=== PATIENT | male | born 1950 | race Caucasian/White ===

== ENCOUNTER 2018-04-05 13:10 | Inpatient (IN) | payer MEDICARE, OTHER ==
[~2018-04-05] VITALS: Ht 177.8 cm; Wt 62.1 kg
[~2018-04-05 13:10] MED LIST: AMITIZA24 MCG PO; AMLODIPINE BESY10 MG PO; BYSTOLIC10 MG PO; CATAPRES-TTS 11 EACH TD; CYMBALTA60 MG PO; DURAGESIC; FLOMAX0.4 MG PO; FLUDROCORTISON0.1 MG PO; LEVAQUIN500 MG PO; LEVOTHYROXINE100 MCG PO; LISINOPRIL10 MG PO; METOPROLOL SUCC50 MG PO; MIDODRINE HCL2.5 MG PO; MORPHINE SULFAT15 M1 PO; MORPHINE SULFAT30 M1 PO; NORVASC5 MG PO; PROCARDIA XL30 MG PO; ROPINIROLE HC0.25 MG PO; Z MORPHINE SULFAT PO; Z.0.AMITRIPTYLINE H5 PO; Z.0.CLINDAMYCIN HC30; Z.0.LEVOTHYROXINE150 PO; Z.0.METOPROLOL SUCC5 PO; Z.0.NORVASC10 MG; Z.0.SERTRALINE HCL10 PO; [UNRECOGNIZED DRUG - OTHER] PO; amitriptyline PO; fludrocortisone PO; metoprolol ER PO
--- NOTE | 2018-04-05 13:20 | NUR ---
SpO2=76-77%RA, O2 via NRB@15lpm placed. Pt's respiration more at ease, tolerating well. Will continue to monitor.
[2018-04-05] MEDS ORDERED: ACETAMINOPHEN 1000 MG/100 ML IV STA (13:47)
[2018-04-05] MEDS ORDERED: SODIUM CHLORIDE 0.9% IV SCH (14:00)
[2018-04-05] MEDS ORDERED: ALBUTEROL/IPRATROPIUM 3 ML NEB NEB ONE (14:00)
[2018-04-05] MEDS ORDERED: CEFTAROLINE FOSAMIL ACETATE 400 MG in SODIUM CHLORIDE 0.9% 250ML 250 ML IV SCH (14:00)
[2018-04-05 14:03] LABS: BASOPHILS % 0.3 % (0.0-1.0); EOSINOPHILS % 0.6 % (0.0-6.0); HEMATOCRIT 32.4 % (38.2-49.6); HEMOGLOBIN 10.4 g/dL (14.0-18.0); LYMPHOCYTES # (AUTO) 0.5 (1.0-3.2); LYMPHOCYTES % 6.8 % (18.0-39.1); MEAN CORPUSCULAR HEMOGLOBIN 26.7 pg (28-32); MEAN CORPUSCULAR HGB CONC 32.1 g/dL (31-35); MEAN CORPUSCULAR VOLUME 83.1 fL (81-99); MONOCYTES # (AUTO) 0.5 (0.2-0.8); MONOCYTES % 6.8 % (4.4-11.3); NEUTROPHILS # (AUTO) 6.2 (2.1-6.9); NEUTROPHILS % 85.2 % (38.7-80.0); PLATELET COUNT 244 x10e3/uL (140-360); RED CELL DISTRIBUTION WIDTH 15.9 % (11.7-14.4)
--- NOTE | 2018-04-05 14:15 | NUR ---
RT notified of need for neb treatment.
[2018-04-05] MEDS: SODIUM CHLORIDE 0.9% 1000ML 1,000 ML IV SCH ×3 (14:24→17:15)
[2018-04-05] MEDS ORDERED: CEFTAROLINE FOSAMIL ACETATE 600 MG in SODIUM CHLORIDE 0.9% 250ML 250 ML IV SCH (14:30)
[2018-04-05 14:33] LABS: ALBUMIN 3.2 g/dL (3.5-5.0); ALBUMIN/GLOBULIN RATIO 0.7 (0.8-2.0); ANION GAP 12.2 mmol/L (8-16); CALCIUM 9.7 mg/dL (8.4-10.2); CREATININE, SERUM 1.3 mg/dL (0.72-1.25); POTASSIUM 3.2 mmol/L (3.5-5.1)
[2018-04-05 14:40] LABS: ABG HCO3 33 mmol/L (23-28); ABG PCO2 45 mmHg (41-51); ABG PH 7.48 (7.31-7.41); ABG PO2 176 mmHg (80-105)
[2018-04-05] MEDS ORDERED: CLONIDINE HCL0.1 MG PO (15:03)
[2018-04-05] MEDS ORDERED: MS CONTIN15 MG PO (15:03)
[2018-04-05] MEDS ORDERED: AMITRIPTYLINE H50 MG PO (15:03)
--- NOTE | 2018-04-05 15:05 | NUR ---
Neb treatment completed, placed on NC@3lpm at this time. Tolerating well.
--- NOTE | 2018-04-05 15:07 | Diagnostic Imaging Report ---
EXAM: CHEST 2 VIEWS, PA and lateral DATE: 04/05/2018 Time stamp on exam: 1:47 PM INDICATION: Sepsis COMPARISON: None FINDINGS: LINES/TUBES: None LUNGS: There is a right lower lobe airspace opacity compatible with consolidation. PLEURA: No effusions or pneumothorax. HEART AND MEDIASTINUM: Normal size and contour. BONES AND SOFT TISSUES: No acute findings. IMPRESSION: Right lower lobe pneumonia Signed by: Dr. Luca Wynne DO on 04/05/2018 3:03 PM
[2018-04-05 15:25] LABS: BILIRUBIN,URINE NEGATIVE (NEGATIVE); CLARITY,URINE SL CLOUDY (CLEAR); COLOR,URINE STRAW (YELLOW); KETONES,URINE NEGATIVE (NEGATIVE); LEUKOCYTE ESTERASE ,URINE NEGATIVE (NEGATIVE); NITRITE,URINE NEGATIVE (NEGATIVE); PROTEIN,URINE DIPSTICK 1+ (NEGATIVE); URINE UROBILINOGEN 0.2 mg/dL (0.2 - 1)
[2018-04-05 15:39] LABS: AMORPHOUS SEDIMENT,URINE MODERATE (FEW); BACTERIA,URINE MODERATE /HPF; EPITHELIAL CELLS,URINE FEW /LPF
--- NOTE | 2018-04-05 15:47 | NUR ---
Contact information for Soha: Home# , .
[2018-04-05] MEDS ORDERED: SODIUM CHLORIDE FLUSH 10 ML SYR INJ PRN (16:15)
[2018-04-05] MEDS ORDERED: ASPIRIN 81 MG CHEW TAB PO ONE (16:15)
--- OUTSIDE RECORDS SUMMARY | 2018-04-05 16:37 | XMS REPORT ---
Author Author [facility] Address Unknown Phone Unavailable Care Team Providers Care Postpartum Rn Name Role Phone Lanette TORRES Unavailable Unavailable Problems This patient has no known problems. Allergies, Adverse Reactions, Alerts This patient has no known allergies or adverse reactions. Medications This patient has no known medications. Results Test Description Test Time Test Comments Text Results Atomic Results Result Comments CHEST 2 VIEWS 2018-04-05 14:53:00 [place] [address] Patient Name: ANNEL PLAZA MR #: [id number] : 1950 Age/Sex: 68/M Req #: [id number] Adm Physician: Ordered by: ELIZABET TORRES MD Report #: [id number] Location: ER Room/Bed: Procedure: [id number] DX/CHEST 2 VIEWS Exam Date: 04/05/18 Exam Time: 1350 REPORT STATUS: Signed EXAM: CHEST 2 VIEWS, PA and lateral DATE: 04/05/2018 Time stamp on exam: 1:47 PM INDICATION: Sepsis COMPARISON: None FINDINGS: LINES/TUBES: None LUNGS: There is a right lower lobe airspace opacity compatible with consolidation. PLEURA: No effusions or pneumothorax. HEART AND MEDIASTINUM: Normal size and contour. BONES AND SOFT TISSUES: No acute findings. IMPRESSION: Right lower lobe pneumonia Signed by: Dr. Renee Evans DO on 04/05/2018 3:03 PM Dictated By: RENEE EVANS DO 1503 Transcribed By: CRYSTAL on 04/05/18 1509 COPY TO: ELIZABET TORRES MD
[2018-04-05] MEDS: ENOXAPARIN SOD INJ 40 MG/0.4 ML SYR SC SCH (17:12)
[2018-04-05] MEDS: FAMOTIDINE 20 MG/2 ML VIAL IV SCH (17:16)
--- NOTE | 2018-04-05 18:05 | NUR ---
RECD PT FROM ER VIA STRETCHER AAOX3,O2 2L NC IN PLACE,DENIES PAIN ,IV TO RT AC 18 G,LT AC 20 G,PATENT WITHOUT REDNESS OR SWELLING,PT TRANSFERRED TO BED TOLERATED WELL,TELE IN PLACE SR 83,SATS 98 %.
[2018-04-05 18:27] VITALS: BP 167/79
[2018-04-05] MEDS: IPRATROPIUM BROMIDE 0.02% 2.5 ML NEB NEB SCH (19:12)
[2018-04-05] MEDS: ALBUTEROL SULF 0.083% NEB SOLN 3 ML NEB NEB SCH (19:12)
--- NOTE | 2018-04-05 19:20 | NUR ---
Bedside rounds completed. Pt alert and orient to name. Lying in bed HOB 45 degrees. Denies pain at this time. Call price within reach. Will continue to monitor.
[2018-04-05] MEDS ORDERED: OSMOLITE237 ML PEG (19:39)
--- NOTE | 2018-04-05 19:41 | NUR ---
Initial nursing assessment completed. Pt alert to person, place, time, situation "I have Pneumonia". PERRLA. Skin warm, dry, and intact. Bilateral feet dry and scaly. Speech impairment due to post radiation treatment, scarred tissue in neck. Upper and lower dentures at bedside. glasses fixed to face. tele#7, leads intact. 18g IV right AC and 20g IV left AC, flushed with 10ml NS. O2 @2L via NC, denies SOB, O2 sat 96%. VS stable. Fentanyl patch to right upper arm. Abdomen soft and nontender, last BM 04/05/18. PEG tube, patent. Ambulatory with steady gait. Oriented to room. Call light within reach. Bed low and locked. Will continue to monitor.
[2018-04-05 19:51] VITALS: BP_SYST 146; BP_SYST 167; BP_DIAS 64; BP_DIAS 79
--- NOTE | 2018-04-05 20:41 | NUR ---
Spoke with with Dr. Hoskins regarding home meds. Home meds continued, changed Fentanyl patch to q72 hours. Ordered consult with Dr. Nati Chambers for pain management.
[2018-04-05] MEDS ORDERED: MORPHINE SULFATE 15MG TAB CR PO PRN (20:45)
[2018-04-05 20:47] VITALS: BP 146/64
[2018-04-05] MEDS ORDERED: NON-FORMULARY MEDICATION (Amitriptyline Hcl 50 MG) PO SCH (21:00)
--- NOTE | 2018-04-05 21:01 | NUR ---
Spoke with Dr. Chambers regarding consultation. Ordered Dilaudid 1mg IV every 4 hours prn pain. D/C morphine.
[2018-04-05] MEDS ORDERED: HYDROMORPHONE 1MG/1ML INJ IV PRN (21:15)
[2018-04-05] MEDS: AMITRIPTYLINE HCL 25 MG TAB PO SCH (22:00)
--- NOTE | 2018-04-05 22:00 | NUR ---
HOB high Fowlers. PEG placement checked via aspiration. Admin bolus Osmolite 1.2, 237ml and flush, pt tolerated well.
[2018-04-06] VITALS (7 sets, daily range): BP systolic 105–153; BP diastolic 55–75
[2018-04-06] MEDS: ALBUTEROL SULF 0.083% NEB SOLN 3 ML NEB NEB SCH ×4 (00:55→19:45)
[2018-04-06] MEDS: IPRATROPIUM BROMIDE 0.02% 2.5 ML NEB NEB SCH ×4 (00:55→19:45)
[2018-04-06 01:49] LABS: CREATINE KINASE 14 IU/L (30-200)
--- NOTE | 2018-04-06 02:00 | NUR ---
HOB high Fowlers. PEG placement checked via aspiration. Admin bolus Osmolite 1.2, 237ml and flush, pt tolerated well.
[2018-04-06] MEDS: CEFTAROLINE FOSAMIL ACETATE 600 MG in SODIUM CHLORIDE 0.9% 250ML 250 ML IV SCH ×2 (02:30→14:30)
[2018-04-06] MEDS: SODIUM CHLORIDE 0.9% 1000ML 1,000 ML IV SCH (02:30)
--- NOTE | 2018-04-06 05:53 | Diagnostic Imaging Report ---
EXAMINATION: CHEST SINGLE (PORTABLE) COMPARISON: Chest x-ray 04/05/2018 INDICATION: ^PNEUMONIA ^[id number] ^0536 ^Y DISCUSSION: Frontal view of the chest obtained at 0529 hours. HEART AND MEDIASTINUM: The cardiomediastinal silhouette is unremarkable. LINES: None. LUNGS: Right basilar airspace opacity is similar. Left basilar airspace opacities are increasing. No interstitial edema PLEURA: No pleural effusion or pneumothorax. BONES AND SOFT TISSUES: No focal osseous lesion. The soft tissues are normal. IMPRESSION: Stable right basilar infiltrate. Increasing left basilar airspace opacities suggestive of infiltrate. Signed by: Dr. Jose Ca MD on 04/06/2018 5:50 AM
[2018-04-06] MEDS: LEVOTHYROXINE SODIUM 100 MCG TAB PO SCH (06:31)
[2018-04-06 06:45] LABS: ANION GAP 13.1 mmol/L (8-16); BLOOD UREA NITROGEN 21 mg/dL (7-26); BUN/CREATININE RATIO 23 (6-25); CALCIUM 8.8 mg/dL (8.4-10.2); CARBON DIOXIDE 27 mmol/L (22-29); CHLORIDE 103 mmol/L (98-107); CREATININE, SERUM 0.92 mg/dL (0.72-1.25); EST GLOMERULAR FILTRATION RATE > 60 ML/MIN (60-); GLUCOSE 80 mg/dL (74-118); POTASSIUM 3.1 mmol/L (3.5-5.1); SODIUM 140 mmol/L (136-145)
--- NOTE | 2018-04-06 07:30 | NUR ---
PT UP IN BED NO DISTRESS NTOED DENIES PAIN
[2018-04-06 07:56] LABS: BASOPHILS % 0.3 % (0.0-1.0); EOSINOPHILS # (AUTO) 0.1 (0.0-0.4); EOSINOPHILS % 1.4 % (0.0-6.0); HEMATOCRIT 27.8 % (38.2-49.6); HEMOGLOBIN 8.9 g/dL (14.0-18.0); LYMPHOCYTES # (AUTO) 1.1 (1.0-3.2); LYMPHOCYTES % 17.9 % (18.0-39.1); MEAN CORPUSCULAR HEMOGLOBIN 26.8 pg (28-32); MEAN CORPUSCULAR VOLUME 83.7 fL (81-99); MONOCYTES # (AUTO) 0.3 (0.2-0.8); MONOCYTES % 5.3 % (4.4-11.3); NEUTROPHILS # (AUTO) 4.7 (2.1-6.9); NEUTROPHILS % 74.8 % (38.7-80.0); PLATELET COUNT 191 x10e3/uL (140-360); RED BLOOD COUNT 3.32 x10e6/uL (4.3-5.7); RED CELL DISTRIBUTION WIDTH 15.6 % (11.7-14.4)
[2018-04-06 08:18] LABS: CREATINE KINASE 17 IU/L (30-200)
[2018-04-06] MEDS: FLUDROCORTISONE ACETATE 0.1 MG TAB PO SCH ×3 (08:30→17:00)
[2018-04-06] MEDS: TAMSULOSIN HCL 0.4 MG CAP PO SCH (09:00)
[2018-04-06] MEDS ORDERED: SERTRALINE HCL 100 MG PO SCH (09:00)
--- NOTE | 2018-04-06 09:00 | NUR ---
DR KERRED HERE NO NEW ORDERS
[2018-04-06] MEDS: SERTRALINE HCL 100 MG TAB PO SCH (09:05)
[2018-04-06] MEDS: AMLODIPINE BESYLATE 10 MG TAB PO SCH (09:05)
[2018-04-06] MEDS: ROPINIROLE HCL 0.25 MG TAB PO SCH (09:07)
[2018-04-06] MEDS: METOPROLOL SUCCINATE 50 MG TAB XL PO SCH (09:08)
[2018-04-06] MEDS: FENTANYL 50 MCG/HR PATCH TD SCH (09:22)
[2018-04-06] MEDS: FAMOTIDINE 20 MG/2 ML VIAL IV SCH (09:22)
[2018-04-06] MEDS: CLONIDINE HCL 0.1 MG TAB PO SCH ×2 (09:22→17:00)
--- NOTE | 2018-04-06 12:30 | NUR ---
FEEDING GIVEN ORDERED,TOLERATED WELL
--- NOTE | 2018-04-06 13:23 | Consultation ---
DATE OF CONSULTATION: Pulmonary Consultation HISTORY OF PRESENT ILLNESS: The patient is not seen for many years, history of carcinoma of the tongue, treated with radiation at [facility] with apparent esophageal stricture and hypothyroidism after radiation. He is admitted with choking on spittle. It is difficult to understand, but eventually would swallow able to speak. He has been housebound this winter, had a chill on the first and cough productive of green-yellow sputum for the last 3 weeks. He had been on oral antibiotics for a month. 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 Denies smoking or alcohol. Born in [place]. FAMILY HISTORY: Noncontributory. MEDICATIONS: At home had included Levoxyl, Elavil, amitriptyline, clonidine, metoprolol, fentanyl patch, ropinirole, sertraline, Flomax, fludrocortisone, morphine , Osmolite. He has a feeding tube. PHYSICAL EXAMINATION: GENERAL: Well-developed white male. Had neck radiation changes. VITAL SIGNS: Temperature on admission 101.6, pulse 78, respirations 18, and blood pressure 152/70. HEENT: Head, normocephalic and atraumatic. NECK: Radiation changes. LUNGS: Rales in the right base. HEART: Regular rhythm. ABDOMEN: PEG is in place. EXTREMITIES: Nontender. IMPRESSION: 1. Right lower lobe pneumonia, presumably pneumonia. The patient has a history of recurrent pneumonia, particularly before percutaneous endoscopic gastrostomy was placed. 2. History of esophageal stricture. PLAN: Empiric antibiotic therapy to cover anaerobic organisms. Thank you for this kind referral. MD KIMBERLY Lechuga/MODL /[id number]
[2018-04-06] MEDS ORDERED: POTASSIUM CHLORIDE 20 MEQ TAB CR PO STA (15:16)
[2018-04-06] MEDS ORDERED: POTASSIUM CHLORIDE 20MEQ/15ML UDC NG ONE (16:30)
[2018-04-06 16:40] LABS: CREATINE KINASE MB 0.3 ng/mL (0-5.0)
[2018-04-06] MEDS: DOXYCYCLINE HYCLATE TABLET 100 MG TAB GT SCH (17:00)
[2018-04-06] MEDS: ENOXAPARIN SOD INJ 40 MG/0.4 ML SYR SC SCH (17:00)
--- NOTE | 2018-04-06 18:33 | NUR ---
PT UP IN BED NO DISTRESS NTOED,DENIES PAIN ,O2 2L NC IN PLACE.
[2018-04-06] MEDS: AMITRIPTYLINE HCL 25 MG TAB PO SCH (23:30)
--- NOTE | 2018-04-06 23:35 | History and Physical ---
HISTORY OF PRESENT ILLNESS: This is a 68-year-old male, who has a past medical history positive for tongue cancer, being treated by as an outpatient for radiation therapy. History of dysphagia, got a PEG tube in place. Came here with cough, phlegm, fever, and shortness of breath. He was found to have pneumonia and hypoxemia. He was admitted to the hospital. REVIEW OF SYSTEMS: CARDIOVASCULAR: No chest pain or palpitation. RESPIRATORY: He has cough and phlegm. He was short of breath, not as much short of breath right now. GASTROINTESTINAL: No nausea, vomiting, or diarrhea. GENITOURINARY: No urinary frequency. No dysuria. ALLERGIES: HE IS NOT ALLERGIC TO ANY MEDICATION. SOCIAL HISTORY: He used to smoke, he does not smoke anymore. He does not drink alcohol. PAST MEDICAL HISTORY: Positive for tongue cancer, status post radiation therapy. Dysphagia, on PEG tube feedings. PHYSICAL EXAMINATION: VITAL SIGNS: Blood pressure is , heart rate 68 per minute, respiratory rate is 17 per minute, and oxygen saturation 94%. HEART: Showed regular rhythm. No murmur or added sound. LUNGS: Clear bilaterally. ABDOMEN: Soft. Got PEG tube in place. EXTREMITIES: Show atrophy in upper and lower extremities. LABORATORY DATA: On the BMP, sodium 140, potassium 3.1, chloride 103, CO2 of 27, BUN 21, creatinine 0.92, and glucose 81. CBC, white blood count 6.27, hemoglobin 8.9, hematocrit 27.8, and platelet count count of 191,000. AST 7, ALT 7, total bilirubin 0.4, and alkaline phosphatase 66. FINAL IMPRESSION: 1. pneumonia. 2. Anemia of chronic disease. 3. Tongue cancer, status post radiation therapy. 4. .. 5. Dysphagia. 6. Hypoxemia. 7. Severe protein-calorie malnutrition. We are going to continue with current IV antibiotic therapy. He is IV twice a day, amlodipine 10 mg daily, levothyroxine 100 mcg daily, , Lovenox 40 mg at bedtime daily for DVT prophylaxis, clonidine 0.1 mg twice daily, Requip 0.5 mg daily, Zoloft 100 mg daily, Pepcid 20 mg twice daily, fentanyl citrate 1 patch q.72 hours, Flomax 0.4 mg daily, doxycycline 100 mg twice a day, fludrocortisone acetate 0.1 mg twice a day, metoprolol 50 mg twice a day, has been consulted from the pulmonary point of view. Dr. Chambers has been consulted from the pain management point of view also. Continue the PEG tube feeding. We are going to discontinue the IV fluids. MD STEPHANIE Barrientos/ELIAN /[id number]
[2018-04-07] VITALS (8 sets, daily range): BP systolic 111–151; BP diastolic 59–82
[2018-04-07] MEDS: ALBUTEROL SULF 0.083% NEB SOLN 3 ML NEB NEB SCH ×4 (00:37→19:28)
[2018-04-07] MEDS: IPRATROPIUM BROMIDE 0.02% 2.5 ML NEB NEB SCH ×4 (00:37→19:28)
[2018-04-07] MEDS: CEFTAROLINE FOSAMIL ACETATE 600 MG in SODIUM CHLORIDE 0.9% 250ML 250 ML IV SCH ×2 (03:04→15:30)
[2018-04-07] MEDS: LEVOTHYROXINE SODIUM 100 MCG TAB PO SCH (06:00)
[2018-04-07 06:53] LABS: ANION GAP 10.3 mmol/L (8-16); BLOOD UREA NITROGEN 18 mg/dL (7-26); BUN/CREATININE RATIO 21 (6-25); CARBON DIOXIDE 27 mmol/L (22-29); CHLORIDE 101 mmol/L (98-107); CREATININE, SERUM 0.87 mg/dL (0.72-1.25); EST GLOMERULAR FILTRATION RATE > 60 ML/MIN (60-); GLUCOSE 88 mg/dL (74-118); POTASSIUM 3.3 mmol/L (3.5-5.1); SODIUM 135 mmol/L (136-145)
--- NOTE | 2018-04-07 07:35 | NUR ---
PT UP IN BED NO DISTRESS NOTED,O2 2L NC IN PLACE.
--- NOTE | 2018-04-07 07:53 | Diagnostic Imaging Report ---
EXAMINATION: PA and lateral views of the chest. COMPARISON: 04/06/2018 CLINICAL HISTORY: Pneumonia DISCUSSION: Lines/tubes: None. Lungs: Stable scattered interstitial opacities and improved right lower lung opacity. Pleura: No pleural effusion or pneumothorax. Heart and mediastinum: The cardiomediastinal silhouette is normal. Bones and soft tissues: No acute bony abnormalities. IMPRESSION: Improved right lower lung airspace opacity. Signed by: Dr. Michael Eckert M.D. on 04/07/2018 7:50 AM
[2018-04-07] MEDS: TAMSULOSIN HCL 0.4 MG CAP PO SCH (08:54)
[2018-04-07] MEDS: CLONIDINE HCL 0.1 MG TAB PO SCH ×2 (08:54→17:00)
[2018-04-07] MEDS: DOXYCYCLINE HYCLATE TABLET 100 MG TAB GT SCH ×2 (08:54→17:00)
[2018-04-07] MEDS: SERTRALINE HCL 100 MG TAB PO SCH (08:55)
[2018-04-07] MEDS: METOPROLOL SUCCINATE 50 MG TAB XL PO SCH (08:55)
[2018-04-07] MEDS: ROPINIROLE HCL 0.25 MG TAB PO SCH (08:55)
[2018-04-07] MEDS: AMLODIPINE BESYLATE 10 MG TAB PO SCH (08:55)
[2018-04-07] MEDS: FLUDROCORTISONE ACETATE 0.1 MG TAB PO SCH ×2 (09:00→17:00)
--- NOTE | 2018-04-07 12:00 | NUR ---
PT UP IN BED DENIES PAIN
[2018-04-07] MEDS ORDERED: POTASSIUM CHLORIDE 20 MEQ TAB CR PO ONE (13:00)
[2018-04-07] MEDS ORDERED: POTASSIUM CHLORIDE 20MEQ/15ML UDC NG ONE (13:15)
--- NOTE | 2018-04-07 13:35 | NUR ---
Patient lives: Lives with and one of his kids Admit/Transfer: Admit POA/Emergency contact: Gilda Carroll [phone] Current/Previous Home Health: Home care in the past but cannot recall the agencys name. PCP/Follow-up Care: Eduard Hoskins MD Current/Previous DME: He has a cane but does not use it Other Services: None Employment Status: Patient is retired Areas of Concerns: Unknown Referral Needs: Unk Education Needs: unk IMM/HALL given and signed (if applicable): n/A Goal for discharge: Addendum: 04/07/18 at 1412 by BRITTNEY TRACY CM IMM signed and placed in chart
--- NOTE | 2018-04-07 13:36 | NUR ---
Nutrition Intervention Note RD Recommendation(s) for Physician: Change to continuous feeds of Osmolite 1.2 at 60ml/hr via PEG Plan of Care: RD following, monitoring for tolerance and adequacy Nutrition reason for involvement: Nutrition Risk Trigger - [facility] RD Assessment Initial encounter with patient. Pt was on gravity feeds of Osmolite 1.2 240ml six times a day which would provide 1728 kcals, 80g of protein and 1180ml of free H2O. Pt states that he could not tolerate 6 cans a day and would only do three which resulted in a 40 pound wt loss over the last 2 months. protruding clavicle, ribs, acromion process, scapula, loss of lean body mass and subcutaneous fat noted in bilateral upper and lower extremities. Dysphagia, esophageal stricture, hx. of aspiration pneumonia, S/P chemo for tongue cancer, + Nausea Principal Problems/Diagnoses:Pneumonia PMH: tongue cancer IVF: None GI: Soft/PEG Skin: intact Labs: (04/07/2018) lab results reviewed Meds: (04/07/2018) MAR reviewed Malnutrition Evaluation (04/07/2018) The patient meets criteria for unspecified SEVERE protein-calorie malnutrition. Energy intake: <50% of estimated energy requirements for >1 month Weight loss: >20% in 1 year (Chronic) Fat loss: Severe, Muscle loss:Mild, Moderate, Severe, unable to evaluate Supporting Evidence: Fluid accumulation: none Functional Status: No changes Diet Education Needs Assessment: Diet education indicated, but patient not appropriate for education at this time. Ht:70 Wt:138.05lbs BMI:19.8kg/m2 IBW:166lbs Estimated Nutritional Needs: 1568 - 1881 kcals at 25-30 kcals/kg/bw 63-94g of protein at 1-1.5g/kg/bw Nutrition Prescription (Diet Order): NPO except for EN Food Allergies: No known food allergies Diet Adequacy: Not meeting calorie needs, Not meeting protein needs HUMAN RESOURCES OPERATIONS MANAGER Tolerance: Not Tolerating TF HUMAN RESOURCES OPERATIONS MANAGER Nutrition Care Level: Moderate Nutrition Diagnosis:Malnutrition related to chronic illness as evidenced by involuntary wt loss and loss of lean body mass Goal:Patient will meet 75-100% of estimated needs by follow up Progress: Not Progressing Interventions: EN via PEG Monitoring/Evaluation: -Wt, I/Os, Lab results Mando Hollis RD, LD, CNSC
--- NOTE | 2018-04-07 14:43 | Progress Note ---
DATE: Internal Medicine Progress Note SUBJECTIVE: The patient is doing well. OBJECTIVE: VITAL SIGNS: Blood pressure 137/77, temperature 97.8, heart rate 72 per minute, respiratory rate 16 per minute, oxygen saturation 93%. HEART: Showed regular rhythm. No murmur or added sound. LUNGS: Clear bilaterally. ABDOMEN: Soft. He does have PEG tube. EXTREMITIES: Show no evidence of cyanosis, edema, or trauma. LABORATORY DATA: BMP; sodium 135, potassium 3.3, chloride 101, CO2 of 27, BUN 18, creatinine 0.87, glucose 88. CBC; white blood count is 6.27, hemoglobin 8.9, hematocrit 27.8, platelet count 181,000. AST 7, ALT 7, total bilirubin 0.4, and alkaline phosphatase 66. FINAL IMPRESSION: 1. Aspiration pneumonia. 2. Anemia of chronic disease. 3. Hypokalemia. 4. Dysphagia. 5. Tongue cancer. 6. Hypoxemia. 7. Severe protein calorie malnutrition. PLAN OF TREATMENT: Continue albuterol and Atrovent q.6 hours. Continue ceftaroline acetate 250 mL/h q.12 hours, Lovenox 40 mg subcutaneously daily for DVT prophylaxis, fentanyl patch q.72 hours, Flomax 0.4 mg daily, doxycycline 100 mg twice a day, fludrocortisone 0.1 mg twice a day, metoprolol 50 mg daily, Dilaudid 1 mg IV q.4 hours as needed. Continue amlodipine 10 mg daily, levothyroxine 150 mcg daily, amitriptyline 50 mg daily, clonidine 0.1 mg twice a day, Requip 0.5 mg daily mg daily. MD STEPHANIE Barrientos/ELIAN /[id number]
[2018-04-07] MEDS: HYDROMORPHONE 2MG/ML 2 MG/ML ML IV PRN (17:20)
[2018-04-07] MEDS: ENOXAPARIN SOD INJ 40 MG/0.4 ML SYR SC SCH (18:15)
--- NOTE | 2018-04-07 18:16 | NUR ---
FEEDING STARTTED REQUESTD,PAIN LEVEL 4
--- NOTE | 2018-04-07 19:30 | NUR ---
Completed report with morning nurse. Pt alert and orient to name. Pt standing in bathroom. c/o x1 vomiting. Clear, davis vomit noted. Pt states, "I am ok now." Denies pain at this time. PEG tube patent, pump with Osmolite @50mL. No acute distress noted. Call price within reach. Will continue to monitor.
--- NOTE | 2018-04-07 21:19 | NUR ---
Received order from Dr. Hoskins for Zofran 4mg IV every 4 hours prn nausea.
[2018-04-07] MEDS ORDERED: ONDANSETRON HCL INJ 2MG/ML 2ML 2 MG/ML VIAL IV PRN (21:30)
[2018-04-07] MEDS: AMITRIPTYLINE HCL 25 MG TAB PO SCH (21:39)
[2018-04-08] VITALS (7 sets, daily range): BP systolic 111–165; BP diastolic 55–77
[2018-04-08] MEDS: IPRATROPIUM BROMIDE 0.02% 2.5 ML NEB NEB SCH ×4 (00:55→19:45)
[2018-04-08] MEDS: ALBUTEROL SULF 0.083% NEB SOLN 3 ML NEB NEB SCH ×4 (00:55→19:45)
[2018-04-08] MEDS: CEFTAROLINE FOSAMIL ACETATE 600 MG in SODIUM CHLORIDE 0.9% 250ML 250 ML IV SCH ×2 (02:30→14:13)
[2018-04-08] MEDS: LEVOTHYROXINE SODIUM 100 MCG TAB PO SCH (06:13)
[2018-04-08 06:50] LABS: ANION GAP 11.5 mmol/L (8-16); BLOOD UREA NITROGEN 17 mg/dL (7-26); BUN/CREATININE RATIO 20 (6-25); CALCIUM 9.2 mg/dL (8.4-10.2); CARBON DIOXIDE 30 mmol/L (22-29); CHLORIDE 100 mmol/L (98-107); CREATININE, SERUM 0.87 mg/dL (0.72-1.25); EST GLOMERULAR FILTRATION RATE > 60 ML/MIN (60-); GLUCOSE 98 mg/dL (74-118); SODIUM 137 mmol/L (136-145)
[2018-04-08 06:58] LABS: POTASSIUM 4.5 mmol/L (3.5-5.1)
--- NOTE | 2018-04-08 07:08 | NUR ---
RECEIVED REPORT FROM NIGHT NURSE, WALKING ROUNDS COMPLETED. PATIENT IS RESTING IN BED. NO ACUTE DISTRESS NOTED. PATIENT DENIES PAIN OR DISCOMFORT. CALL LIGHT WITHIN REACH. BED IN THE LOWEST POSITION.
[2018-04-08] MEDS: SERTRALINE HCL 100 MG TAB PO SCH (10:02)
[2018-04-08] MEDS: ROPINIROLE HCL 0.25 MG TAB PO SCH (10:03)
[2018-04-08] MEDS: DOXYCYCLINE HYCLATE TABLET 100 MG TAB GT SCH ×2 (10:03→18:14)
[2018-04-08] MEDS: AMLODIPINE BESYLATE 10 MG TAB PO SCH (10:03)
[2018-04-08] MEDS: METOPROLOL SUCCINATE 50 MG TAB XL PO SCH (10:03)
[2018-04-08] MEDS: CLONIDINE HCL 0.1 MG TAB PO SCH ×2 (10:03→18:14)
[2018-04-08] MEDS: FLUDROCORTISONE ACETATE 0.1 MG TAB PO SCH ×2 (10:03→18:13)
[2018-04-08] MEDS: TAMSULOSIN HCL 0.4 MG CAP PO SCH (10:03)
--- NOTE | 2018-04-08 10:05 | NUR ---
PEG TUBE PLACEMENT ASSESSED VIA ASPIRATION. PATIENT TOLERATING FEEDING, NO RESIDUAL NOTED. HOB ELEVATED.
--- NOTE | 2018-04-08 10:48 | NUR ---
IMM LETTER EXPLAINED TO PT. VERBALIZED UNDERSTANDING. LETTER WAS SIGNED. COPY TO CHART AND COPY TO PT.
--- NOTE | 2018-04-08 11:32 | NUR ---
ST NOTE: Pt refused Speech Language Evaluation. "NO. I've been like this for 12 years." Pt wishes to d/c from hospital. Handoff to SARBJIT Sahu
--- NOTE | 2018-04-08 14:30 | NUR ---
HOB ELEVATED. PEG TUBE PLACEMENT ASSESSED VIA ASPIRATION. PATIENT TOLERATING FEEDING, NO RESIDUAL NOTED.
[2018-04-08] MEDS: ENOXAPARIN SOD INJ 40 MG/0.4 ML SYR SC SCH (18:13)
--- NOTE | 2018-04-08 18:13 | NUR ---
PEG TUBE PLACEMENT ASSESSED VIA ASPIRATION. NO RESIDUAL NOTED, PATIENT TOLERATING FEEDING. HOB ELEVATED.
--- NOTE | 2018-04-08 19:35 | NUR ---
REPORT GIVEN TO ONCOMING NURSE, WALKING ROUNDS DONE. PATIENT IS RESTING IN BED. NO ACUTE DISTRESS NOTED. CALL LIGHT WITHIN REACH. BED IN THE LOWEST POSITION.
--- NOTE | 2018-04-08 20:37 | NUR ---
RECEIVE DPT IN BED AOX3 .DENIES PAIN .OSMOLITES 1.2 IS RUNNING AT 50CC/HR ..RT AC 20 G S/L .NO ACUTE DISTRESS NOTED .CALL LIGHT WITH IN REACH.
[2018-04-08] MEDS: AMITRIPTYLINE HCL 25 MG TAB PO SCH (21:50)
--- NOTE | 2018-04-08 23:16 | Progress Note ---
DATE: Internal Medicine Progress Note SUBJECTIVE: He is doing well. No significant complaint. PHYSICAL EXAMINATION: VITAL SIGNS: Blood pressure 133/66, temperature 99.0, heart rate 70 per minute, respiratory rate 18 per minute, and oxygen saturation 90%. HEART: Showed regular rhythm. No murmur or added sound. LUNGS: Clear bilaterally. ABDOMEN: Soft. He has a PEG tube in place. LABORATORY DATA: On BMP; sodium 137, potassium 4.5, chloride 100, CO2 of 30, BUN 17, creatinine 0.87, glucose 98. On CBC, white blood count 6.27, hemoglobin 8.9, hematocrit 27.8, platelet count 181,000. AST 7, ALT 7, total bilirubin 0.4, alkaline phosphatase 66. FINAL IMPRESSION: 1. Aspiration pneumonia. 2. Dysphagia. 3. Hypertension. 4. Chronic obstructive pulmonary disease. 5. Hypothyroidism. 6. Moderate protein-calorie malnutrition. PLAN OF TREATMENT: Continue PEG tube feeding. Continue albuterol and Atrovent q.6 hours. Continue ceftaroline fosamil acetate q.12 hours. Continue Lovenox 40 mg subcutaneously daily, fentanyl patch q.72 hours, Flomax 0.4 mg daily, doxycycline 100 mg twice a day, fludrocortisone 0.1 mg twice a day, metoprolol 50 mg daily, Zofran 4 mg IV q.4 hours as needed, amlodipine 10 mg daily, levothyroxine 150 mcg daily, amitriptyline 50 mg daily, Dilaudid 1 mg IV q.4 hours as needed, clonidine 0.1 mg twice a day, Requip 0.5 mg at bedtime, sertraline 100 mg daily. We are going to consult Dr. Irving Zaragoza to check the feeding tube. He went to check for some other connection in the feeding tube. In the meantime, antibiotics will be continued. So far, he is doing well. Physical therapy consulted also. MD STEPHANIE Barrientos/ELIAN /[id number]
[2018-04-09] VITALS (9 sets, daily range): BP systolic 112–170; BP diastolic 55–77
[2018-04-09] MEDS: IPRATROPIUM BROMIDE 0.02% 2.5 ML NEB NEB SCH ×4 (01:05→19:12)
[2018-04-09] MEDS: ALBUTEROL SULF 0.083% NEB SOLN 3 ML NEB NEB SCH ×4 (01:05→19:12)
[2018-04-09] MEDS: CEFTAROLINE FOSAMIL ACETATE 600 MG in SODIUM CHLORIDE 0.9% 250ML 250 ML IV SCH ×2 (02:30→13:50)
[2018-04-09] MEDS: LEVOTHYROXINE SODIUM 100 MCG TAB PO SCH (06:32)
--- NOTE | 2018-04-09 07:13 | NUR ---
Received patient resting in bed, no acute distress noted. Denies pain or discomfort. Call light within reach, bed in the lowest position.
--- NOTE | 2018-04-09 07:43 | NUR ---
PT IS NPO PT IS GOING FOR PEGTUBE REPLACEMENT .DENIES PAIN .CALL LIGHT WITH IN REACH.REPORT GIVEN TO THE ONCOMING NURSE .
[2018-04-09] MEDS: DOXYCYCLINE HYCLATE TABLET 100 MG TAB GT SCH ×2 (09:00→16:21)
[2018-04-09] MEDS: CLONIDINE HCL 0.1 MG TAB PO SCH ×2 (09:00→16:22)
[2018-04-09] MEDS: FLUDROCORTISONE ACETATE 0.1 MG TAB PO SCH ×2 (09:00→16:22)
[2018-04-09] MEDS: FENTANYL 50 MCG/HR PATCH TD SCH (09:46)
--- NOTE | 2018-04-09 10:00 | NUR ---
PEG TUBE PLACEMENT ASSESSED VIA ASPIRATION. PATIENT TOLERATING FEEDING, NO RESIDUAL NOTED. HOB ELEVATED.
--- NOTE | 2018-04-09 12:25 | NUR ---
PATIENT OFF THE UNIT FOR PROCEDURE.
[2018-04-09] MEDS ORDERED: PANTOPRAZOLE 40 MG 10ML VIAL IV STA (13:31)
--- NOTE | 2018-04-09 13:43 | NUR ---
PATIENT BACK TO UNIT AT THIS TIME. PER NURSE STAT PROTONIX NOT GIVEN IN PACU. WILL ADMINISTER.
[2018-04-09] MEDS: PANTOPRAZOLE 40 MG 10ML VIAL IV SCH (13:45)
--- NOTE | 2018-04-09 14:30 | NUR ---
PATIENT BACK FROM PROCEDURE, PEG TUBE REPLACED. PEG TUBE ASSESSED FOR PLACEMENT. NO RESIDUAL NOTED. PER DR. Rachelle MONTENEGRO TUBE OK TO USE. CONNECTED FEEDING AT THIS TIME.
[2018-04-09] MEDS: METOPROLOL SUCCINATE 50 MG TAB XL PO SCH (14:35)
[2018-04-09] MEDS: AMLODIPINE BESYLATE 10 MG TAB PO SCH (14:35)
[2018-04-09] MEDS: ROPINIROLE HCL 0.25 MG TAB PO SCH (14:35)
[2018-04-09] MEDS: TAMSULOSIN HCL 0.4 MG CAP PO SCH (14:35)
[2018-04-09] MEDS: SERTRALINE HCL 100 MG TAB PO SCH (14:35)
[2018-04-09] MEDS: ENOXAPARIN SOD INJ 40 MG/0.4 ML SYR SC SCH (16:22)
[2018-04-09] MEDS ORDERED: LIDOCAINE HCL 2% LOCAL INJ 5 ML SDV VIAL INJ ONE (18:03)
[2018-04-09] MEDS ORDERED: PROPOFOL IV EMULSION 10 MG/ML 20 ML VIAL ONE (18:03)
[2018-04-09] MEDS ORDERED: MIDAZOLAM HCL 2 MG/2 ML VIAL ONE (18:30)
[2018-04-09] MEDS ORDERED: FENTANYL CITRATE/PF 100MCG/2 ML INJ ONE (18:30)
--- NOTE | 2018-04-09 19:41 | NUR ---
REPORT GIVEN TO ONCOMING NURSE, PATIENT IS RESTING IN BED. NO SOB OR ACUTE DISTRESS NOTED. CALL LIGHT WITHIN REACH. BED IN THE LOWEST POSITION.
--- NOTE | 2018-04-09 20:32 | Operative Report ---
DATE OF PROCEDURE: 04/09/2018 SURGEON: Irving Zaragoza MD PROCEDURES: An esophagogastroduodenoscopy with biopsies and PEG tube replacement. INDICATIONS FOR PROCEDURE: Dysfunctional G-tube. MEDICATION: The patient was done under MAC. Please see anesthesiologist's note. DESCRIPTION OF THE PROCEDURE: With the patient in the supine position, a flexible fiberoptic Olympus gastroscope was introduced into the esophagus under direct visualization without any difficulty. There was some patchy erythema noted in the distal esophagus. The scope was then advanced with ease into the stomach and mucosa overlying the antrum and the body revealed some patchy erythema and then an approximately 5 mm ulcer was noted in the antrum without active bleeding or stigmata of recent hemorrhage, now it was biopsied. The pylorus was of normal contour and shape, was intubated with ease and the scope was advanced all the way to the second portion of the duodenum. The scope was then withdrawn slowly. Mucosa overlying the proximal second portion and the duodenal bulb appeared to be within normal limits. The scope was then withdrawn back into the stomach and retroflexed. Mucosa overlying the fundus and the cardia appeared to be within normal limits. The scope was then straightened out and the bumper of the old dysfunctional G-tube was noted. The OG tube was removed per the old pull traction method and PEG tube replacement was carried out in the usual fashion through the old G-tube stoma. The scope was subsequently withdrawn after documenting a good positioning of the intragastric bumper. The patient tolerated the procedure well. IMPRESSION: 1. Distal esophagitis, mild. 2. Gastritis. 3. Gastric ulcer, antrum biopsied. 4. PEG tube replacement carried out in the usual fashion through the OG tube stoma. PLAN: Followup histology. G-tube can be used upon return to floor. Irving Zaragoza MD [facility] [place] /[id number] cc: Eduard Hoskins MD
[2018-04-09] MEDS: AMITRIPTYLINE HCL 25 MG TAB PO SCH (21:20)
[2018-04-10] VITALS (7 sets, daily range): BP systolic 100–132; BP diastolic 63–77
[2018-04-10] MEDS: IPRATROPIUM BROMIDE 0.02% 2.5 ML NEB NEB SCH ×3 (00:32→13:26)
[2018-04-10] MEDS: ALBUTEROL SULF 0.083% NEB SOLN 3 ML NEB NEB SCH ×3 (00:32→13:26)
[2018-04-10] MEDS: PANTOPRAZOLE 40 MG 10ML VIAL IV SCH ×2 (02:01→16:52)
[2018-04-10] MEDS: CEFTAROLINE FOSAMIL ACETATE 600 MG in SODIUM CHLORIDE 0.9% 250ML 250 ML IV SCH ×2 (02:01→16:52)
[2018-04-10] MEDS: LEVOTHYROXINE SODIUM 100 MCG TAB PO SCH (06:00)
[2018-04-10] MEDS: HYDROMORPHONE 2MG/ML 2 MG/ML ML IV PRN (09:50)
--- NOTE | 2018-04-10 09:50 | NUR ---
Pt received resting in bed. Alert and oriented x4 with saline lock #18 in right AC. Pt with PEG tube receiving feeding as ordered. Oriented to staff and surroundings, encouraged to press call price if help needed. Emotional support given. Fall precautions maintained. Will monitor
[2018-04-10] MEDS: DOXYCYCLINE HYCLATE TABLET 100 MG TAB GT SCH ×2 (10:04→16:52)
[2018-04-10] MEDS: ROPINIROLE HCL 0.25 MG TAB PO SCH (10:04)
[2018-04-10] MEDS: TAMSULOSIN HCL 0.4 MG CAP PO SCH (10:04)
[2018-04-10] MEDS: CLONIDINE HCL 0.1 MG TAB PO SCH ×2 (10:04→16:52)
[2018-04-10] MEDS: AMLODIPINE BESYLATE 10 MG TAB PO SCH (10:04)
[2018-04-10] MEDS: METOPROLOL SUCCINATE 50 MG TAB XL PO SCH (10:04)
[2018-04-10] MEDS: FLUDROCORTISONE ACETATE 0.1 MG TAB PO SCH ×2 (10:04→16:52)
[2018-04-10] MEDS: SERTRALINE HCL 100 MG TAB PO SCH (10:04)
--- NOTE | 2018-04-10 14:52 | NUR ---
ORDERS REC'D TODAY FOR [facility] EVAL AND TRANSFER WHEN ACCEPTED CHOICE LETTER SIGNED BY PT SHORTLY AFTER THIS I REC'D PHONE CALL FROM PT'S , ANGRY AND STATING MY IS NOT GOING TO [facility]. HE WILL STAY THERE TILL HE GETS WELL CM WENT INTO PT'S ROOM WITH ON PHONE EXPLAINED TO PT WHO IS ALERT AND [employer]X3 THAT HIS DOES NOT WANT HIM TO GO TO [facility] HE STATES, "SHE'S THE BOSS. THEN I WON'T GO" BELA NOTIFIED DR SR OF ABOVE
[2018-04-10] MEDS: ENOXAPARIN SOD INJ 40 MG/0.4 ML SYR SC SCH (16:52)
--- NOTE | 2018-04-10 18:18 | NUR ---
Pt resting in bed. Pt is for possible transfer to [facility]. All meds given as ordered. Call price within reach. Will endorse to next shift
--- NOTE | 2018-04-10 19:11 | Progress Note ---
DATE: Internal Medicine Progress Note SUBJECTIVE: The patient is on IV antibiotics for aspiration pneumonia. The patient agreed to go to [facility], but apparently the did not agree with that. I talked with the patient. I told him that [facility] would be the best alternative. Otherwise, he has to go to a long-term facility, which he refused. So, he is in agreement to go to [facility]. He will talk with the and try to convince her that he wanted to go to [facility], which is his choice. PHYSICAL EXAMINATION: VITAL SIGNS: Blood pressure 100/68, temperature 96.6, heart rate 64 per minute, respiratory rate 18 per minute, and oxygen saturation 100%. HEART: Showed regular rhythm. Nor murmur or added sound. LUNGS: Clear bilaterally. ABDOMEN: Soft. He had a PEG tube in place. LABORATORY DATA: On the BMP, sodium 137, potassium 4.5, chloride 100, CO2 of 30, BUN 17, creatinine 0.87, glucose 98. CBC, white blood count 6.27, hemoglobin 8.9, hematocrit 27.8, and platelet count of 181,000. AST 7, ALT 7. Total bilirubin 0.4, alkaline phosphatase 66. Blood culture negative so far. ASSESSMENT: 1. Aspiration pneumonia. 2. Dysphagia. 3. Cancer of the tongue, status post radiation therapy in the past. 4. Severe protein-calorie malnutrition. 5. Orthostatic hypotension. 6. Chronic obstructive pulmonary disease. PLAN OF TREATMENT: Continue ceftaroline fosamil acetate q.12 hours, albuterol and Atrovent q.6 hours. Continue Lovenox 40 mg subcutaneously daily, fentanyl patch q.72 hours, Flomax 0.4 mg daily, doxycycline 100 mg twice a day, fludrocortisone 0.1 mg twice a day, metoprolol 50 mg daily, Zofran 4 mg IV q.4 hours as needed, amlodipine 10 mg daily, levothyroxine 150 mcg daily, amitriptyline 50 mg at bedtime, Protonix 40 mg twice a day, Dilaudid 1 mg IV q.4 hours as needed, Zoloft 100 mg daily, Requip 0.5 mg daily, clonidine 0.1 mg twice a day. The patient is going to be transferred to [facility] if accepted. MD STEPHANIE Barrientos/ELIAN /[id number]
[2018-04-10] MEDS: AMITRIPTYLINE HCL 25 MG TAB PO SCH (22:07)
[2018-04-11] VITALS: BP 133/67
[2018-04-11] MEDS: IPRATROPIUM BROMIDE 0.02% 2.5 ML NEB NEB SCH ×3 (00:29→13:00)
[2018-04-11] MEDS: PANTOPRAZOLE 40 MG 10ML VIAL IV SCH ×2 (02:13→13:55)
[2018-04-11] MEDS: CEFTAROLINE FOSAMIL ACETATE 600 MG in SODIUM CHLORIDE 0.9% 250ML 250 ML IV SCH ×2 (02:13→13:55)
[2018-04-11] MEDS: ALBUTEROL SULF 0.083% NEB SOLN 3 ML NEB NEB SCH ×3 (03:33→13:00)
[2018-04-11 04:00] VITALS: BP 136/66
[2018-04-11] MEDS: LEVOTHYROXINE SODIUM 100 MCG TAB PO SCH (05:44)
[2018-04-11] MEDS: AMLODIPINE BESYLATE 10 MG TAB PO SCH (07:40)
[2018-04-11] MEDS: CLONIDINE HCL 0.1 MG TAB PO SCH ×2 (07:40→17:50)
[2018-04-11] MEDS: METOPROLOL SUCCINATE 50 MG TAB XL PO SCH (07:40)
[2018-04-11 07:55] VITALS: BP 97/60
[2018-04-11] MEDS: FLUDROCORTISONE ACETATE 0.1 MG TAB PO SCH ×2 (08:19→17:50)
[2018-04-11] MEDS: DOXYCYCLINE HYCLATE TABLET 100 MG TAB GT SCH ×2 (08:19→17:50)
[2018-04-11] MEDS: ROPINIROLE HCL 0.25 MG TAB PO SCH (08:19)
[2018-04-11] MEDS: SERTRALINE HCL 100 MG TAB PO SCH (08:19)
[2018-04-11] MEDS: TAMSULOSIN HCL 0.4 MG CAP PO SCH (08:19)
[2018-04-11 08:20] VITALS: BP 97/60
--- NOTE | 2018-04-11 08:20 | NUR ---
Pt received resting in bed with feeding ongoing. All meds given as ordered via peg. Emotional support given. Fall precautions maintained. Will monitor
[2018-04-11 12:06] VITALS: BP 118/74
--- NOTE | 2018-04-11 15:04 | Discharge Summary ---
HISTORY: The patient is a 68-year-old white male with past medical history positive for cancer of the tongue status post several courses of radiation therapy, dysphagia on PEG tube feedings, hypothyroidism, chronic pain syndrome, hypertension, orthostatic hypotension, came to the hospital with aspiration pneumonia. He was started on IV antibiotics. The patient is going to go to [facility] for continuation of the IV antibiotic and optimization of the nutritional status and physical therapy. PHYSICAL EXAMINATION: VITAL SIGNS: Blood pressure 110/68, temperature 36.9, heart rate 64 per minute, respiratory rate 18 per minute, oxygen saturation 100%. HEART: Regular rhythm. No murmur or added sound. LUNGS: Clear bilaterally. ABDOMEN: Soft. Got a PEG tube in place. FINAL IMPRESSION: 1. Aspiration pneumonia. 2. Dysphagia. 3. Cancer of the tongue status post radiation therapy. 4. Orthostatic hypotension. 5. Hypothyroidism. 6. Chronic pain syndrome. 7. Severe protein-calorie malnutrition. 8. Depression. 9. . PLAN OF TREATMENT: Continue albuterol and Atrovent q.6 hours. Continue ceftaroline fosamil acetate q.12 hours. Continue Lovenox 40 mg subcutaneous daily for DVT prophylaxis, fentanyl patch q.72 hours, Flomax 0.4 mg daily, doxycycline 100 mg twice a day, fludrocortisone 0.1 mg twice a day, metoprolol 50 mg daily, Zofran 4 mg IV q.4 hours as needed, amlodipine 10 mg daily, levothyroxine 150 mcg daily, amitriptyline 50 mg at bedtime, Protonix 40 mg twice a day, clonidine 0.1 mg twice a day, Requip 0.5 mg daily, sertraline 100 mg daily, Dilaudid 1 mg IV q.4 hours as needed. He is going to go to [facility] once accepted. The patient and family are in agreement. MD STEPHANIE Barrientos/ELIAN /[id number]
[2018-04-11 16:00] VITALS: BP 158/82
--- NOTE | 2018-04-11 17:45 | NUR ---
Report given to Denae at [facility]. Pt aware of pending transfer. Emotional support given. Will inform patient registration supervisor of transfer
[2018-04-11] MEDS: ENOXAPARIN SOD INJ 40 MG/0.4 ML SYR SC SCH (17:50)
--- NOTE | 2018-04-11 20:31 | NUR ---
Pt D/C to [facility] via stretcher by ambulance. Pt alert and orient to name, place, time, and situation. PEG tube intact. 20g IV right FA. Pt denies pain at this time. Resp even and unlabored. No acute distress noted. Pt left in stable condition.
--- NOTE | 2018-04-12 14:25 | Discharge Summary ---
HISTORY: A 68-year-old male with past medical history positive for COPD, history of dysphagia, hypertension, hypothyroidism, orthotopic hypotension, tongue cancer status post radiation therapy. The patient came with cough, phlegm, shortness of breath, and fever. He was found to have pneumonia. He was started on IV antibiotics. He is going to be transferred to [facility] for continuation of IV antibiotics. PHYSICAL EXAMINATION: VITAL SIGNS: Blood pressure 118/74, temperature 98.7 degrees Fahrenheit, heart rate 70 per minute, respiratory rate 16 per minute, oxygen saturation 95%. HEART: Regular rhythm. No murmur or added sound. LUNGS: Clear bilaterally, but significantly decreased. LABORATORY DATA: BMP; sodium 137, potassium 4.5, chloride 100, CO2 of 30, BUN 17, creatinine 0.87, glucose 98. CBC; white blood count 6.27, hemoglobin 8.9, hematocrit 27.8, platelet count 181,000. AST 7, ALT 7, total bilirubin 0.4, alkaline phosphatase 66. IMPRESSION: 1. Right lower lobe pneumonia, which is more likely an aspiration pneumonia. 2. Anemia of chronic disease. 3. Orthostatic hypotension. 4. Essential hypertension. 5. Tongue cancer status post several courses of radiation therapy. 6. Acquired hypothyroidism. 7. Tsponuag-in-ricmpa protein-calorie malnutrition. 8. Depression. 9. Restless legs syndrome. PLAN OF TREATMENT: Continue albuterol and Atrovent q.6 hours. Continue ceftaroline fosamil acetate 250 mL/h q.12 hours, Lovenox 40 mg subcutaneous daily, fentanyl patch q.72 hours, Flomax 0.4 mg daily, doxycycline 100 mg twice a day, fludrocortisone 0.1 mg twice a day, metoprolol 50 mg daily, Zofran 4 mg IV or p.o. q.4 hours as needed for nausea and vomiting, Norvasc 10 mg daily, levothyroxine 150 mcg daily, amitriptyline 50 mg at bedtime, Protonix 40 mg daily, Requip 0.5 mg daily, clonidine 0.1 mg twice a day, Zoloft 100 mg daily, and Dilaudid 1 mg IV q.4 hours as needed for severe pain. The patient is going to be transferred to [facility] today. He is going to follow up with Dr. Bowen until April 22. MD STEPHANIE Barrientos/ELIAN /[id number]
== END 2018-04-11 20:30 | DRG 177 ==
LOC: ER 13:10 → ERHOLD 16:35 → MED/SURG3 18:15
PROVIDERS: ADMIT Internal Medicine; ATTEND Internal Medicine
PROC: 0DB78ZX Excision of Stomach, Pylorus, Via Natural or Artificial Opening Endoscopic, Diagnostic (ICD-10-PCS; principal; 2018-04-09 12:47)
PROC: 0DH63UZ Insertion of Feeding Device into Stomach, Percutaneous Approach (ICD-10-PCS; 2018-04-09 12:47)
DX: J69.0 Pneumonitis due to inhalation of food and vomit (principal); E43 Unspecified severe protein-calorie malnutrition; Z68.1 Body mass index [BMI] 19.9 or less, adult; D63.8 Anemia in other chronic diseases classified elsewhere; I10 Essential (primary) hypertension; E03.9 Hypothyroidism, unspecified; F32.9 Major depressive disorder, single episode, unspecified; G25.81 Restless legs syndrome; R13.10 Dysphagia, unspecified; G89.4 Chronic pain syndrome; I95.1 Orthostatic hypotension; R09.02 Hypoxemia; Z87.891 Personal history of nicotine dependence; K25.9 Gastric ulcer, unspecified as acute or chronic, without hemorrhage or perforation; J44.9 Chronic obstructive pulmonary disease, unspecified; C02.9 Malignant neoplasm of tongue, unspecified
CPT/HCPCS: 36415; 36600; 43239; 43246; 71045; 71046; 80048; 80053; 81001; 82550; 82553; 82805; 83605; 83735; 83880; 84484; 85025; 87040; 87070; 87086; 87205; 88305; 88312; 93005; 94640; 99285; J0712; J1650; J2001; J2250; J2405; J7030; J7050

== ENCOUNTER 2018-05-03 17:11 | Inpatient (IN) | payer MEDICARE, OTHER ==
[~2018-05-03] VITALS: Ht 177.8 cm; Wt 61.2 kg
[~2018-05-03 17:11] MED LIST changes: +AMITRIPTYLINE H50 MG PO; +CLONIDINE HCL0.1 MG PO; +MS CONTIN15 MG PO; +OSMOLITE237 ML PEG
[2018-05-03] MEDS ORDERED: PANTOPRAZOLE 40 MG 10ML VIAL IV STA (17:43)
[2018-05-03] MEDS ORDERED: SODIUM CHLORIDE 0.9% 1000ML 1,000 ML IV STA (17:43)
[2018-05-03] MEDS ORDERED: ALBUTEROL SULF 0.083% NEB SOLN 3 ML NEB NEB ONE (17:55)
[2018-05-03] MEDS ORDERED: IPRATROPIUM BROMIDE 0.02% 2.5 ML NEB NEB ONE (18:00)
[2018-05-03 18:10] LABS: BASOPHILS % 0.4 % (0.0-1.0); EOSINOPHILS # (AUTO) 0.1 (0.0-0.4); EOSINOPHILS % 1.4 % (0.0-6.0); HEMATOCRIT 30.3 % (38.2-49.6); HEMOGLOBIN 9.6 g/dL (14.0-18.0); LYMPHOCYTES # (AUTO) 0.6 (1.0-3.2); LYMPHOCYTES % 10.8 % (18.0-39.1); MEAN CORPUSCULAR HEMOGLOBIN 27.8 pg (28-32); MEAN CORPUSCULAR HGB CONC 31.7 g/dL (31-35); MEAN CORPUSCULAR VOLUME 87.8 fL (81-99); MONOCYTES # (AUTO) 0.3 (0.2-0.8); MONOCYTES % 6.3 % (4.4-11.3); NEUTROPHILS # (AUTO) 4.1 (2.1-6.9); NEUTROPHILS % 80.7 % (38.7-80.0); PLATELET COUNT 190 x10e3/uL (140-360); RED BLOOD COUNT 3.45 x10e6/uL (4.3-5.7); RED CELL DISTRIBUTION WIDTH 17.4 % (11.7-14.4)
[2018-05-03 18:25] LABS: INR 0.89; PROTHROMBIN TIME 12.5 seconds (11.9-14.5)
[2018-05-03 18:26] LABS: PARTIAL THROMBOPLASTIN TIME 34.8 seconds (23.8-35.5)
[2018-05-03 18:27] LABS: BILIRUBIN,URINE NEGATIVE (NEGATIVE); CLARITY,URINE SL CLOUDY (CLEAR); COLOR,URINE YELLOW (YELLOW); KETONES,URINE NEGATIVE (NEGATIVE); LEUKOCYTE ESTERASE ,URINE NEGATIVE (NEGATIVE); NITRITE,URINE NEGATIVE (NEGATIVE); PROTEIN,URINE DIPSTICK 1+ (NEGATIVE); URINE UROBILINOGEN 0.2 mg/dL (0.2 - 1)
[2018-05-03 18:34] LABS: BACTERIA,URINE MANY /HPF
[2018-05-03 18:35] LABS: ALBUMIN 3.1 g/dL (3.5-5.0); ALBUMIN/GLOBULIN RATIO 0.8 (0.8-2.0); ANION GAP 11.9 mmol/L (8-16); CALCIUM 9.5 mg/dL (8.4-10.2); CREATININE, SERUM 1.43 mg/dL (0.72-1.25); MAGNESIUM 1.9 MG/DL (1.3-2.1); POTASSIUM 3.9 mmol/L (3.5-5.1)
[2018-05-03 18:43] LABS: CREATINE KINASE MB 0.7 ng/mL (0-5.0)
--- NOTE | 2018-05-03 18:43 | Diagnostic Imaging Report ---
EXAMINATION: CHEST SINGLE (PORTABLE) COMPARISON: Chest x-ray 04/07/2018 INDICATION: Shortness of breath ^SOB ^[id number] ^1820 DISCUSSION: Frontal view of the chest obtained at 1826 hours. HEART AND MEDIASTINUM: The cardiomediastinal silhouette is unremarkable. LINES: None. LUNGS: There is skin folds over the upper lung zones. The lungs are diffusely hyperinflated. Right basilar airspace opacity is redemonstrated without significant change. Left basilar airspace opacity is clearing. No interstitial edema. PLEURA: No pleural effusion or pneumothorax. BONES AND SOFT TISSUES: No focal osseous lesion. The soft tissues are normal. IMPRESSION: Skin fold over the upper lung zones. Recommend repeat imaging with better patient positioning. Right basilar airspace opacity is similar. Left basilar airspace opacity is clearing. Stable pulmonary hyperinflation consistent with COPD. Signed by: Dr. Jose Ca MD on 05/03/2018 6:40 PM
[2018-05-03 20:06] LABS: STREPTOCOCCUS GRP A ANTIGEN NEGATIVE (NEGATIVE)
[2018-05-03 20:13] LABS: INFLUENZAE A&B ANTIGEN (RAPID) NEGATIVE (NEGATIVE)
--- NOTE | 2018-05-03 21:19 | Diagnostic Imaging Report ---
CT chest without enhancement CPT code: 05114 INDICATION: Shortness of breath, pneumonia, altered level of consciousness TECHNIQUE: Thin collimation axial images obtained from the thoracic inlet to the level of the diaphragm without intravenous contrast. Dose reduction techniques used: Automated exposure control, adjustment of the mAs and/or kVp according to patient size, standardized low-dose protocol, and/or iterative reconstruction technique. RADIATION DOSE: Total DLP: 406.58 mGy*cm Estimated effective dose: (DLP x 0.015 x size factor) mSv CTDIvol has been reviewed. It is below the limits set by the Radiation Protocol Committee (RPC). COMPARISON: Chest x-ray 8 1826 hours, chest x-ray 04/07/2018. CHEST FINDINGS: Lymph nodes: No enlarged axillary, supraclavicular lymph nodes. Mediastinal lymph nodes are increased in number and size. A lymph node in the AP window measures 3.1 x 2.3 cm. No enlarged hilar lymph nodes given the lack of intravenous contrast. Subcarinal lymph node measures 1.6 cm.. Thyroid: Atrophic Mediastinum: Circumferential pericardial effusion measures 10 mm. The butts of the right and left ventricles are visible suggestive of anemia. Moderate burden of coronary artery atherosclerosis. The ascending aorta measures 3.9 cm. Main pulmonary artery measures 3.3 cm in diameter. The esophagus is collapsed. Lungs: Right: Diffuse hyperinflation. Numerous tiny groundglass nodules predominantly in the inferior and posterior upper lobe, middle lobe, and the majority of the lower lobe. Spiculated nodule in the upper lobe measures 9 x 7 mm. Multiple nodules in the apex measure up to 11 mm. There are infiltrates throughout the inferior upper lobe and particularly the middle and lower lobes with associated atelectasis. Smooth interlobular septal thickening in the lower lung zone. Left: Multifocal airspace opacities throughout the upper and lower lobes. Numerous tiny groundglass nodules are present throughout the abdominal and the inferior upper lobe and throughout the lower lobe. There is smooth interlobular septal thickening in the lower lung zone and atelectasis of the posterior lower lobe. Airways: There is mucous in the distal trachea extending into the bird. There is cylindrical bronchiectasis predominantly of the middle lobe, lingula, and lower lobes. There is diffuse bronchial wall thickening. No significant mucus impaction. Pleura: Tiny left pleural effusion. There is fluid outlining the major and minor fissures. ABDOMEN FINDINGS: Percutaneous gastrostomy is in appropriate position. There is a large amount of stool mixed with high attenuating material in the splenic flexure of the colon. Visualized portions of the upper abdomen demonstrate no evidence of mass or infiltrate. Bones: Mild degenerative changes of the spine. No compression deformities or focal osseous lesions. Soft tissues: Unremarkable. IMPRESSION: 1. Diffuse pulmonary infiltrates and numerous groundglass nodules suggestive of infectious/inflammatory process, likely bronchial pneumonia. There is bilateral focal atelectasis, particularly left lower lobe subsegmental atelectasis. Bilateral interseptal thickening, suggestive of edema. Small bilateral pleural effusions. 2. Mucus in the trachea as described above. Cylindrical bronchiectasis and diffuse bronchial wall thickening suggestive of infectious/inflammatory process. 3. Diffuse mediastinal lymphadenopathy suggestive of infectious/infiltrate process. 4. Visualization of the heart chambers suggestive of anemia. Enlarged main pulmonary artery is suggestive of pulmonary artery hypertension. 5. Small right upper lobe nodules in the right lung may be infectious or inflammatory. Recommend follow-up CT of the chest in 3 months to document interval change/resolution. Signed by: Dr. Jose Ca MD on 05/03/2018 9:15 PM
[2018-05-03] MEDS ORDERED: ACETAMINOPHEN 1000 MG/100 ML IV PRN (22:15)
[2018-05-03] MEDS ORDERED: ONDANSETRON HCL INJ 2MG/ML 2ML 2 MG/ML VIAL IV STA (22:15)
[2018-05-03] MEDS: SODIUM CHLORIDE 0.9% 1000ML 1,000 ML IV SCH (22:58)
[2018-05-03] MEDS: CEFTRIAXONE SOD 1 GM/NS 50 ML 50 ML IV SCH (23:00)
[2018-05-03] MEDS: ALBUTEROL SULF 0.083% NEB SOLN 3 ML NEB NEB SCH (23:00)
[2018-05-03] MEDS: AZITHROMYCIN 500MG/NS 250 ML 250 ML IV SCH (23:04)
[2018-05-03] MEDS: VANCOMYCIN 1GM/NS 250 ML 250 ML IV SCH (23:06)
[2018-05-03 23:40] VITALS: BP 127/74
--- NOTE | 2018-05-03 23:40 | NUR ---
patient received to room 296 via stretcher from the er. vss. no c/o pain noted. ivf infusing without difficulty. admit assessment/history complete. call price placed within reach. patient instructed to call for assistance when needed.
[2018-05-04] VITALS (7 sets, daily range): BP systolic 127–184; BP diastolic 67–79
[2018-05-04] MEDS: IPRATROPIUM BROMIDE 0.02% 2.5 ML NEB NEB SCH ×4 (01:00→18:37)
--- NOTE | 2018-05-04 02:00 | NUR ---
second set of cardiac markers collected and sent to lab at this time.
[2018-05-04] MEDS: ALBUTEROL SULF 0.083% NEB SOLN 3 ML NEB NEB SCH ×6 (02:41→23:00)
[2018-05-04 03:04] LABS: CREATINE KINASE MB 2.4 ng/mL (0-5.0)
[2018-05-04 07:36] LABS: ALBUMIN 2.6 g/dL (3.5-5.0); ALBUMIN/GLOBULIN RATIO 0.7 (0.8-2.0); ALKALINE PHOSPHATASE 56 IU/L (40-150); ANION GAP 9.7 mmol/L (8-16); BLOOD UREA NITROGEN 34 mg/dL (7-26); BUN/CREATININE RATIO 29 (6-25); CALCIUM 8.8 mg/dL (8.4-10.2); CARBON DIOXIDE 34 mmol/L (22-29); CHLORIDE 102 mmol/L (98-107); CREATININE, SERUM 1.18 mg/dL (0.72-1.25); EST GLOMERULAR FILTRATION RATE > 60 ML/MIN (60-); GLUCOSE 76 mg/dL (74-118); POTASSIUM 3.7 mmol/L (3.5-5.1); SODIUM 142 mmol/L (136-145)
[2018-05-04 07:43] LABS: ALANINE AMINOTRANSFERASE < 6 IU/L (0-55)
--- NOTE | 2018-05-04 08:00 | NUR ---
Call to to review tube feed parameters given patient stated doesn't know, waiting for call back as left message
[2018-05-04] MEDS: SODIUM CHLORIDE 0.9% 1000ML 1,000 ML IV SCH ×2 (09:11→23:00)
--- NOTE | 2018-05-04 09:56 | NUR ---
Patient alert and responsive, no resp distress, PEG tube in place, call to Dr. Zaragoza and orders to restart Osmolite 1.2 at 55cc/hr, will monitor
[2018-05-04] MEDS: VANCOMYCIN 1GM/NS 250 ML 250 ML IV SCH (10:15)
--- NOTE | 2018-05-04 10:45 | NUR ---
Tube feed started at this time at ordered rate and tolerating well, will monitor
[2018-05-04 12:16] LABS: CREATINE KINASE MB 1.5 ng/mL (0-5.0)
--- NOTE | 2018-05-04 13:29 | NUR ---
Rounds by attending and orders in place to renew home medications and have been renewed at this time, Patient OOB and ambulating, will monitor.
--- NOTE | 2018-05-04 14:00 | NUR ---
Spoke with and reviewed all home meds with her and with bottles in the room, indicated specific times for meds to be given, adjusted in meditech accordingly. was not satisfied and wanted to speak with charge nurse. Charge nurse notified
--- NOTE | 2018-05-04 15:00 | NUR ---
Charge nurse reported spoke with patient's , report given of patient to another RN and patient transferred to her care.
--- NOTE | 2018-05-04 15:56 | NUR ---
Took over care from bedside nurse. Will continue to monitor
[2018-05-04] MEDS: CLONIDINE HCL 0.1 MG TAB PO SCH (16:37)
[2018-05-04] MEDS ORDERED: FLUDROCORTISONE ACETATE 0.1 MG TAB PO SCH ×2 (17:00→21:00)
--- NOTE | 2018-05-04 19:20 | NUR ---
Patient visited in room during nursing rounds. Patient alert and oriented x4. No distress or discomfort noted. PEG tube on LUQ receiving feeding (Osmolite 1.2 pablo at 50ml/hr). Pt uses urinal prn. Pt on IVF and scheduled IV antibiotics. Call price within reach. Will monitor closely.
[2018-05-04] MEDS ORDERED: CLONIDINE HCL 0.1 MG TAB PO ONE (21:15)
[2018-05-04] MEDS: FLUDROCORTISONE ACETATE 0.1 MG TAB PO SCH (21:40)
[2018-05-04] MEDS: AMITRIPTYLINE HCL 25 MG TAB PO SCH (21:40)
[2018-05-04] MEDS: CEFTRIAXONE SOD 1 GM/NS 50 ML 50 ML IV SCH (21:40)
[2018-05-04] MEDS: AMLODIPINE BESYLATE 10 MG TAB PO SCH (21:40)
[2018-05-04] MEDS: ROPINIROLE HCL 0.25 MG TAB PO SCH (21:40)
[2018-05-04] MEDS: SERTRALINE HCL 100 MG TAB PO SCH (21:40)
[2018-05-04] MEDS: AZITHROMYCIN 500MG/NS 250 ML 250 ML IV SCH (23:00)
[2018-05-05] VITALS: BP 102/57
[2018-05-05] MEDS: IPRATROPIUM BROMIDE 0.02% 2.5 ML NEB NEB SCH ×4 (01:00→19:10)
[2018-05-05] MEDS: VANCOMYCIN 1GM/NS 250 ML 250 ML IV SCH ×3 (01:07→14:09)
[2018-05-05] MEDS: ALBUTEROL SULF 0.083% NEB SOLN 3 ML NEB NEB SCH ×6 (03:00→23:45)
[2018-05-05 04:00] VITALS: BP 126/60
[2018-05-05] MEDS: LEVOTHYROXINE SODIUM 75 MCG TAB PO SCH (06:28)
--- NOTE | 2018-05-05 06:45 | NUR ---
New bag of Osmolite 1.2 pablo hanged. O ml residual check.
[2018-05-05 07:56] VITALS: BP 147/76
[2018-05-05 08:00] VITALS: BP 147/76
--- NOTE | 2018-05-05 08:00 | NUR ---
Pt received resting in bed. All meds given as ordered via peg. Emotional support given. Call price within reach. Will monitor
[2018-05-05] MEDS: FLUDROCORTISONE ACETATE 0.1 MG TAB PO SCH ×2 (08:01→21:00)
[2018-05-05] MEDS: CLONIDINE HCL 0.1 MG TAB PO SCH ×2 (08:01→16:25)
[2018-05-05] MEDS: TAMSULOSIN HCL 0.4 MG CAP PO SCH (08:01)
[2018-05-05] MEDS: METOPROLOL SUCCINATE 50 MG TAB XL PO SCH (08:02)
[2018-05-05] MEDS ORDERED: SERTRALINE HCL 100 MG TAB PO SCH (09:00)
[2018-05-05] MEDS ORDERED: AMLODIPINE BESYLATE 10 MG TAB PO SCH (09:00)
[2018-05-05] MEDS ORDERED: LEVOTHYROXINE SODIUM 75 MCG TAB PO SCH (09:00)
[2018-05-05] MEDS ORDERED: ROPINIROLE HCL 0.25 MG TAB PO SCH (09:00)
[2018-05-05 12:14] VITALS: BP 158/76
[2018-05-05] MEDS: SODIUM CHLORIDE 0.9% 1000ML 1,000 ML IV SCH ×2 (13:16→14:10)
[2018-05-05] MEDS ORDERED: FENTANYL 50 MCG/HR PATCH TD SCH (14:00)
[2018-05-05 20:00] VITALS: BP 176/79
[2018-05-05] MEDS: AMITRIPTYLINE HCL 25 MG TAB PO SCH (21:00)
[2018-05-05] MEDS: AMLODIPINE BESYLATE 10 MG TAB PO SCH (21:00)
[2018-05-05] MEDS: SERTRALINE HCL 100 MG TAB PO SCH (21:00)
[2018-05-05] MEDS: ROPINIROLE HCL 0.25 MG TAB PO SCH (21:00)
[2018-05-05] MEDS: CEFTRIAXONE SOD 1 GM/NS 50 ML 50 ML IV SCH (21:47)
[2018-05-05] MEDS: AZITHROMYCIN 500MG/NS 250 ML 250 ML IV SCH (22:41)
[2018-05-06] VITALS (7 sets, daily range): BP systolic 145–207; BP diastolic 67–84
[2018-05-06] MEDS: ALBUTEROL SULF 0.083% NEB SOLN 3 ML NEB NEB SCH ×4 (03:40→15:38)
[2018-05-06] MEDS: IPRATROPIUM BROMIDE 0.02% 2.5 ML NEB NEB SCH ×3 (03:40→15:38)
[2018-05-06 05:47] LABS: BASOPHILS % 0.6 % (0.0-1.0); EOSINOPHILS # (AUTO) 0.1 (0.0-0.4); EOSINOPHILS % 4.2 % (0.0-6.0); HEMATOCRIT 26.8 % (38.2-49.6); HEMOGLOBIN 8.6 g/dL (14.0-18.0); LYMPHOCYTES # (AUTO) 0.7 (1.0-3.2); LYMPHOCYTES % 20.8 % (18.0-39.1); MEAN CORPUSCULAR HEMOGLOBIN 27.7 pg (28-32); MEAN CORPUSCULAR HGB CONC 32.1 g/dL (31-35); MEAN CORPUSCULAR VOLUME 86.2 fL (81-99); MONOCYTES # (AUTO) 0.3 (0.2-0.8); MONOCYTES % 9.5 % (4.4-11.3); NEUTROPHILS # (AUTO) 2.2 (2.1-6.9); NEUTROPHILS % 64.6 % (38.7-80.0); PLATELET COUNT 150 x10e3/uL (140-360); RED BLOOD COUNT 3.11 x10e6/uL (4.3-5.7); RED CELL DISTRIBUTION WIDTH 16.2 % (11.7-14.4)
[2018-05-06 06:00] LABS: ANION GAP 10.9 mmol/L (8-16); BUN/CREATININE RATIO 18 (6-25); CALCIUM 8.7 mg/dL (8.4-10.2); CARBON DIOXIDE 32 mmol/L (22-29); CHLORIDE 103 mmol/L (98-107); CREATININE, SERUM 0.83 mg/dL (0.72-1.25); EST GLOMERULAR FILTRATION RATE > 60 ML/MIN (60-); GLUCOSE 100 mg/dL (74-118); SODIUM 143 mmol/L (136-145); VANCOMYCIN,RANDOM 10.7 ug/mL
[2018-05-06 06:02] LABS: BLOOD UREA NITROGEN 15 mg/dL (7-26); POTASSIUM 2.9 mmol/L (3.5-5.1)
[2018-05-06] MEDS: LEVOTHYROXINE SODIUM 75 MCG TAB PO SCH (06:34)
[2018-05-06] MEDS: SODIUM CHLORIDE 0.9% 1000ML 1,000 ML IV SCH ×2 (06:34→17:44)
--- NOTE | 2018-05-06 06:41 | NUR ---
Left message with answering service for Dr. Hoskins to notify of potassium level of 2.9. Awaiting on MD call back for further orders.
--- NOTE | 2018-05-06 07:19 | NUR ---
RECEIVED PATIENT RESTING IN BED. RESPIRATIONS EVEN AND UNLABORED, NO ACUTE DISTRESS NOTED. CALL LIGHT WITHIN REACH. BED IN THE LOWEST POSITION.
--- NOTE | 2018-05-06 07:34 | NUR ---
DR. MONTENEGRO RETURNED CALL AND NOTIFIED HIM OF POTASSIUM LEVEL OF 2.9. NEW ORDERS RECEIVED.
[2018-05-06] MEDS ORDERED: POTASSIUM CHLORIDE 20MEQ/15ML UDC NG ONE ×2 (08:00→10:00)
[2018-05-06] MEDS: TAMSULOSIN HCL 0.4 MG CAP PO SCH (08:45)
[2018-05-06] MEDS: CLONIDINE HCL 0.1 MG TAB PO SCH ×2 (08:45→17:44)
[2018-05-06] MEDS: FLUDROCORTISONE ACETATE 0.1 MG TAB PO SCH ×2 (08:45→20:12)
[2018-05-06] MEDS: METOPROLOL SUCCINATE 50 MG TAB XL PO SCH (08:45)
[2018-05-06] MEDS: VANCOMYCIN 1GM/NS 250 ML 250 ML IV SCH (13:28)
[2018-05-06] MEDS ORDERED: POTASSIUM CHLORIDE 20MEQ/15ML UDC NG NR (15:00)
--- NOTE | 2018-05-06 15:38 | NUR ---
CHOICE SIGNED FOR [facility] FILED IN CHART AND REP NOTIFIED TO COME GET PACKET.
--- NOTE | 2018-05-06 16:36 | NUR ---
Nutrition Intervention Note RD Recommendation(s) for Physician: -Continue current TF; Osmolite 1.2 at 50 ml/hr. (1440 kcal, 67 grams of protein, 984 ml of water) -Water flushes per MD. -Check daily labs, weight and gastric tolerance. Plan of Care: RD following, monitoring for tolerance and adequacy. TF rec. Nutrition reason for involvement: New tube feed. RD Assessment 05/06: 68 YOM admitted for PNA. Pt came in with g-tube. Pt reports he was on bolus feedings at home (6 cans 240 ml of Osmolite 1.2). Pt was ordered continuous TF here in the hospital that meet 94% of his minimum recommended caloric needs and 107% of his minimum recommended protein needs. Pt was on continuous TF during his previous admission d/t aspiration PNA, TF has started with same formula. Per RN-pt is tolerating TF well. Noted- low K, being replaced. Will continue to monitor. Principal Problems/Diagnoses: PNA PMH: COPD, history of dysphasia, hypertension, hypothyroidism, orthotopic hypotension, tongue cancer status post radiation therapy. GI: Abdomen: soft, flatus-present Skin: No pressure wound noted. Labs: 05/06: K 2.9 L Meds: KCL, Abx, Synthroid Ht: 70 in Wt: 135 lbs BMI: 19.4 kg/m2 IBW: 166 lbs Malnutrition Evaluation (05/06/2018) The patient meets criteria for unspecified SEVERE protein-calorie malnutrition. Energy intake: Stable with TF. Weight loss: >20% in 1 year (Chronic) Fat loss: Severe-clavicle Muscle loss: severe-temporal Supporting Evidence: Fluid accumulation: Unable to evaluate. Functional Status: No changes Nutrition Prescription (Diet Order): Osmolite at 50 ml/hr Estimated Nutritional Needs: Calories: 0806-2364(25-35) Weight used : ABW Protein : 61-91(1-1.5) Weight used: ABW Diet Adequacy: Meeting calorie needs, Meeting protein needs Diet Education Needs Assessment: Diet education not indicated, patient on temporary/transition diet. Nutrition Care Level: Mod Nutrition Diagnosis: Inadequate oral intake related to aspiration PNA as evidenced by requiring enteral nutrition. Goal: Patient will meet 75-100% of estimated needs by follow up Progress: Progressing, Interventions: Composition, Rate, Route, IVF, Prescription medications Monitoring/Evaluation: -Total energy intake, Total protein intake, Formula/Solution, Weight change, Labs, Gastric tolerance Signed: Conchis Arango, MS, RD, LD
--- NOTE | 2018-05-06 17:19 | Progress Note ---
DATE: Internal Medicine Progress Note SUBJECTIVE: The patient came with aspiration pneumonia again, apparently according to his , he was eating at home, but he was not supposed to be eating and he was supposed to be n.p.o. because he does have evidence of aspiration, so he has aspiration pneumonia. PHYSICAL EXAMINATION: VITAL SIGNS: Blood pressure 158/72, temperature 38.7, heart rate 76 per minute, respiratory rate 16 per minute, oxygen sat is 93%. HEART: Showed regular rate. Normal S1, S2 sound. LUNGS: Clear bilaterally. ABDOMEN: Soft. EXTREMITIES: Show no evidence of cyanosis, edema, or trauma. LABORATORY DATA: BMP; sodium 143, potassium 2.9, chloride 103, CO2 of 32, BUN 15, creatinine 0.83, glucose 100. CBC; white blood count 3.36, hemoglobin 8.6, hematocrit 26.8, platelet count 150,000. PT 15.5, PTT 34.8, INR 0.89. AST 11, ALT 6, total bilirubin 0.4, alkaline phosphatase of 56. FINAL IMPRESSION: 1. Recurrent aspiration pneumonia due to noncompliant with n.p.o. status. 2. Anemia of chronic disease. 3. Hypokalemia. 4. Severe protein calorie malnutrition. 5. Hypertension. 6. Oral cancer. PLAN OF TREATMENT: Continue on PEG feeding. Continue with Atrovent q.4 to 6 hours as needed for shortness of breath, ceftriaxone 2 g IV once a day, which is going to be changed to Zosyn 3.375 g IV q.6 hours. Continue Zithromax 250 mg IV once daily, fentanyl patch q.48 hour, Norvasc 10 mg daily, levothyroxine 150 mcg daily, vancomycin 1 g IV twice a day, metoprolol 50 mg daily, Requip 0.5 mg at bedtime, Flomax 0.4 mg daily, sertraline 100 mg daily, clonidine 0.1 mg twice a day, amitriptyline 50 mg once a day and Florinef 0.1 mg twice a day because of orthostatic hypotension. The patient is going to be evaluated for [facility] area again. For continuation of IV antibiotics the patient is told not to eat by mouth since he already has evidence of aspiration swallow. We are going to replace the potassium. Recheck the potassium and magnesium level tomorrow. MD STEPHANIE Barrientos/ELIAN /[id number]
[2018-05-06] MEDS ORDERED: PIPER-TAZ 3.375 GM 50 ML IV SCH (18:00)
--- NOTE | 2018-05-06 18:30 | NUR ---
PAGED DR. SR TO NOTIFY HIM THAT PATIENT HAS A BED AVAILABLE, AND TO GET DC ORDER.
--- NOTE | 2018-05-06 19:11 | NUR ---
REPORT GIVEN TO ONCOMING NURSE, WALKING ROUNDS DONE. PATIENT IS RESTING IS UP GETTING BELONGINGS READY. NO ACUTE DISTRESS NOTED, RESPIRATIONS EVEN AND UNLABORED. CALL LIGHT WITHIN REACH. PATIENT IS TO BE TRANSFERRED TO [facility], ORDER IN COMPUTER, NIGHT NURSE NOTIFIED.
[2018-05-06] MEDS: SERTRALINE HCL 100 MG TAB PO SCH (20:13)
[2018-05-06] MEDS: AMITRIPTYLINE HCL 25 MG TAB PO SCH (20:13)
[2018-05-06] MEDS: ROPINIROLE HCL 0.25 MG TAB PO SCH (20:13)
[2018-05-06] MEDS: AMLODIPINE BESYLATE 10 MG TAB PO SCH (20:13)
--- NOTE | 2018-05-06 21:30 | NUR ---
Called report to Stewart SCHAFFER at [facility] for pt transfer.
[2018-05-06] MEDS ORDERED: HYDRALAZINE HCL 20 MG/ML VIAL IV PRN (21:45)
--- NOTE | 2018-05-06 21:48 | NUR ---
Called Dr. Hoskins for order for pt elevated BP. Spoke to Dr. Hoskins to report BP 212/84 and orders for Hydralazine 20mg IV q 4h for BP 150/90 or higher given.
--- NOTE | 2018-05-06 21:59 | NUR ---
Pt transferred to [place]
--- NOTE | 2018-05-06 22:34 | Consultation ---
DATE OF CONSULTATION: Pulmonary consultation. REASON FOR CONSULT: Shortness of breath and pneumonia. HISTORY OF PRESENT ILLNESS: Mr. Brien Carroll is a 68-year-old male, well known to me from previous admission. The patient has a history of carcinoma of the tongue treated with radiation in [facility] in remote past and since then has esophageal stricture. The patient has a PEG tube and has been admitted here multiple times with recurrent aspiration pneumonia. He came at this time again with shortness of breath and was started on IV antibiotics. In the emergency room, he is feeling somewhat better. His CT scan of the chest is showing multiple infiltrates in the left and the right lobe with evidence of bronchiectasis. He denies any chest pain, nausea, or vomiting. REVIEW OF SYSTEMS: GENERAL: Denies any fever, chills, or shortness of breath. GI: Denies any nausea or vomiting. MUSCULOSKELETAL: Denies any arthralgias or myalgias. NEURO: Denies any focal weakness. The rest of the review of systems are negative except as in HPI. PAST MEDICAL HISTORY: History of tongue cancer in 2003, lung cancer, chronic pain, hypertensive heart disease. The patient has a PEG tube, recurrent aspiration pneumonitis in the past. FAMILY AND SOCIAL HISTORY: He does not smoke. He does not drink. He is . PHYSICAL EXAMINATION: VITAL SIGNS: Temperature 98.4, pulse of 67, blood pressure 157/67 and respiratory rate of 18. HEENT: Head is atraumatic, normocephalic. NECK: Supple. Chest: Crackles in the bases. HEART: S1, S2 audible. ABDOMEN: Soft, nontender, has a PEG tube. EXTREMITIES: No pedal edema. NEUROLOGIC: Awake and alert. LABORATORY DATA: Reviewed. White count of 3000. CT of the chest, I reviewed the films just showing evidence of multilobar infiltrate and nodules, also has lymphadenopathy in this context possibly due to recurrent infection, he has bronchiectasis as well. ASSESSMENT: Mr. Carroll is a 68-year-old male who presented to the emergency room with worsening shortness of breath, coughing as recurrent aspiration because of PEG tube and history of tongue cancer. According to the , who told Dr. Hoskins that he is eating here and there well; however, he is not supposed to eat. PLAN: 1. Agree with IV vancomycin. I will discontinue the Rocephin and start the patient on IV Zosyn for anaerobic coverage. 2. Nebulizer treatment. 3. Oxygen as needed. If no improvement, then consider using Vest airway clearance system. He will need a followup CT to document resolution of these findings. MD DENISE Apple/ELIAN /[id number]
--- NOTE | 2018-05-07 07:00 | Discharge Summary ---
HOSPITAL COURSE: The patient is a 68-year-old male, who has a past medical history positive for oral cancer and throat cancer, treated with radiation therapy in the past. He had a PEG tube because he cannot eat because he has aspiration. The patient has also hypertension, chronic pain syndrome, polyneuropathy, significant weight loss. The patient was recently admitted with aspiration pneumonia, spent at least 2 weeks and has been in [facility] and then went home in good condition. He finished a course of IV antibiotic with no significant events and then at home apparently he has been eating what he is not supposed to be eating and again he developed aspiration pneumonia, so he is back again in the hospital. The patient has been started on broad-spectrum IV antibiotic and he is going to go back to [place] again for a couple of weeks of IV antibiotics. PHYSICAL EXAMINATION: HEART: Showed regular rhythm. No murmurs. No added sounds. LUNGS: Clear bilaterally. ABDOMEN: Soft. He has PEG tube in place. EXTREMITIES: Show no evidence of cyanosis or hematoma. FINAL IMPRESSION: 1. Aspiration pneumonia due to noncompliance with n.p.o. status. 2. Hypertension. 3. Polyneuropathy. 4. Chronic pain syndrome. 5. Hypokalemia. PLAN OF TREATMENT: Potassium will be replaced. We are going to continue the current IV antibiotic therapy, n.p.o. status going to be reinforced again, and continue albuterol as needed for shortness of breath. Continue pain management. The patient is going to go to [facility] today. MD STEPHANIE Barrientos/ELIAN /[id number]
== END 2018-05-06 21:59 | DRG 177 ==
LOC: ER 17:11 → ERHOLD 22:17 → MED/SURG3 23:40
PROVIDERS: ADMIT Internal Medicine; ATTEND Internal Medicine
DX: J69.0 Pneumonitis due to inhalation of food and vomit (principal); E43 Unspecified severe protein-calorie malnutrition; G62.9 Polyneuropathy, unspecified; G89.4 Chronic pain syndrome; E87.6 Hypokalemia; C06.9 Malignant neoplasm of mouth, unspecified; D63.8 Anemia in other chronic diseases classified elsewhere; I10 Essential (primary) hypertension; Z91.11 Patient's noncompliance with dietary regimen
CPT/HCPCS: 36415; 71045; 71250; 80048; 80053; 80202; 81001; 82550; 82553; 83518; 83605; 83735; 84484; 85025; 85610; 85730; 87040; 87070; 87086; 87400; 94640; 96361; 99284; J0360; J0456; J0696; J2405; J2543; J3370; J7030

== ENCOUNTER → 2018-06-18 | Outpatient (CLI) | payer MEDICARE, OTHER ==
--- NOTE | 2018-06-18 13:18 | Diagnostic Imaging Report ---
EXAMINATION: PA and lateral views of the chest. COMPARISON: Chest CT 05/03/2017, portable chest radiograph 05/03/2017 CLINICAL HISTORY: Shortness of breath DISCUSSION: Compared to the examination 05/03/2018, aeration of the right lung base has improved. Patchy consolidations in the left upper and lower lung zones, and right lower lung zone. Blunting of the bilateral costophrenic sulci which may indicate pleural thickening or trace effusions. No acute osseous abnormality. IMPRESSION: Improved aeration of the right lung base compared to 05/03/2018. Patchy multifocal consolidations involving the left upper and lower lung zones are grossly unchanged. Refer to the report for the CT scan dated 05/03/2018 for further description and follow-up imaging recommendations. Signed by: Dr. Yg Clark M.D. on 06/18/2018 1:15 PM
== END ==
LOC: RAD 12:25
PROVIDERS: ATTEND Internal Medicine
DX: R06.02 Shortness of breath (principal)
CPT/HCPCS: 71046

== ENCOUNTER 2018-08-08 15:21 | Emergency (ER) | payer MEDICARE, OTHER ==
[~2018-08-08] VITALS: Ht 177.8 cm; Wt 61.2 kg
[~2018-08-08 15:21] MED LIST changes: +AMITRIPTYLINE H50 MG PEG; -AMITRIPTYLINE H50 MG PO; +AMLODIPINE BESY10 MG PEG; -AMLODIPINE BESY10 MG PO; +CLONIDINE HCL0.1 MG PEG; -CLONIDINE HCL0.1 MG PO; +FLOMAX0.4 MG PEG; -FLOMAX0.4 MG PO; +FLUDROCORTISON0.1 MG PEG; -FLUDROCORTISON0.1 MG PO; +METOPROLOL SUCC50 MG PEG; -METOPROLOL SUCC50 MG PO; +Z.0.SERTRALINE HCL10 PEG; -Z.0.SERTRALINE HCL10 PO
[2018-08-08] MEDS ORDERED: DIATRIZOATE MEGL/DIATRIZOA SOD 30 ML BTL PO ONE (16:19)
--- NOTE | 2018-08-08 17:37 | Diagnostic Imaging Report ---
EXAM: Abdomen 1 View INDICATION: ^with gastro, g-tube replaced ^[id number] ^[id number] COMPARISON: None FINDINGS: Nonobstructive bowel gas pattern. Large colonic stool burden, suggestive of constipation. Contrast injected through the gastrostomy tube which is seen within gastric lumen, duodenum, and proximal jejunum. No acute osseous abnormality. Clear lung bases. IMPRESSION: 1. Nonobstructive bowel gas pattern. 2. Contrast injected through the gastrostomy tube without definite evidence of leak. Signed by: Dr. Quincy Noel MD on 08/08/2018 5:34 PM
== END 2018-08-08 18:03 | disposition home or self-care (01) ==
LOC: ER 15:21
DX: Z43.1 Encounter for attention to gastrostomy (principal); I10 Essential (primary) hypertension; F32.9 Major depressive disorder, single episode, unspecified; Z85.118 Personal history of other malignant neoplasm of bronchus and lung; Z85.818 Personal history of malignant neoplasm of other sites of lip, oral cavity, and pharynx
CPT/HCPCS: 74018; 99283

== ENCOUNTER 2018-08-09 10:34 | Observation (INO) | payer MEDICARE, OTHER ==
[~2018-08-09] VITALS: Ht 177.8 cm; Wt 57.9 kg
[2018-08-09 11:34] LABS: BASOPHILS % 0.6 % (0.0-1.0); EOSINOPHILS # (AUTO) 0.1 (0.0-0.4); EOSINOPHILS % 1.3 % (0.0-6.0); HEMATOCRIT 37.7 % (38.2-49.6); HEMOGLOBIN 12.7 g/dL (14.0-18.0); LYMPHOCYTES # (AUTO) 1.6 (1.0-3.2); LYMPHOCYTES % 29.9 % (18.0-39.1); MEAN CORPUSCULAR HEMOGLOBIN 30.1 pg (28-32); MEAN CORPUSCULAR HGB CONC 33.7 g/dL (31-35); MEAN CORPUSCULAR VOLUME 89.3 fL (81-99); MONOCYTES # (AUTO) 0.4 (0.2-0.8); MONOCYTES % 8.2 % (4.4-11.3); NEUTROPHILS # (AUTO) 3.1 (2.1-6.9); NEUTROPHILS % 59.6 % (38.7-80.0); PLATELET COUNT 202 x10e3/uL (140-360); RED BLOOD COUNT 4.22 x10e6/uL (4.3-5.7); RED CELL DISTRIBUTION WIDTH 16.8 % (11.7-14.4)
[2018-08-09] MEDS: LACTATED RINGER'S 1,000 ML IV SCH ×2 (11:36→23:36)
[2018-08-09 11:50] LABS: ALBUMIN 4.3 g/dL (3.5-5.0); ALBUMIN/GLOBULIN RATIO 1.7 (0.8-2.0); ANION GAP 18.2 mmol/L (8-16); CREATININE, SERUM 1.4 mg/dL (0.72-1.25); MAGNESIUM 2.7 MG/DL (1.3-2.1); POTASSIUM 4.2 mmol/L (3.5-5.1)
[2018-08-09 13:53] VITALS: BP 193/86
--- NOTE | 2018-08-09 13:53 | NUR ---
Received pt from ER at this time. Pt admitted for dislodged pegtube with replacement to be done. Pt is aox4 and able to verbalize needs. Speech is slurred which is his baseline. Denies any pain at this time. Pt has pegtube stoma to left upper quadrant with minimal drainage. Pt is able to ambulate with min assist. Denies any pain at this time.
[2018-08-09] MEDS ORDERED: ACETAMINOPHEN 650 MG SUPP PR PRN (15:00)
[2018-08-09] MEDS ORDERED: HYDRALAZINE HCL 20 MG/ML VIAL IV PRN (15:00)
[2018-08-09 15:41] VITALS: BP 193/86
[2018-08-09] MEDS: PANTOPRAZOLE 40 MG 10ML VIAL IV SCH (16:00)
[2018-08-09 16:33] VITALS: BP 173/87
--- NOTE | 2018-08-09 18:00 | NUR ---
Dr. Hoskins was here to see pt and he was made aware of elevated BP and received orders for IV hydralazine PRN. Pt in bed. Denies any pain. Left upper dressing is dry and intact.
--- NOTE | 2018-08-09 19:00 | NUR ---
Received patient from day nurse, patient stable, patient npo, signed consent and waiting for possible surgery am.
--- NOTE | 2018-08-09 19:54 | History and Physical ---
HISTORY OF PRESENT ILLNESS: A 68-year-old male with past medical history positive for laryngeal CA. He has dysphagia. He had a PEG tube for feeding. He has a history of hypertension, came here because his feeding tube came out. It was replaced in the emergency room for another feeding tube for transitioning one, but then came out again, so he came back to the emergency room and he is scheduled to have a permanent PEG tube placement by Dr. Irving Zaragoza, professor of physics. REVIEW OF SYSTEMS: CARDIOVASCULAR: No chest pain or palpitation. RESPIRATORY: No shortness of breath. No cough. GASTROINTESTINAL: No nausea. No vomiting. No diarrhea. GENITOURINARY: No frequency. No dysuria. ALLERGIES: HE IS NOT ALLERGIC TO ANY MEDICATION. PAST MEDICAL HISTORY: COPD, dysphagia on PEG tube feedings, hypertension, and laryngeal CA. SOCIAL HISTORY: He smokes. He does not drink. PHYSICAL EXAMINATION: VITAL SIGNS: Blood pressure 138/81, temperature 98.4, heart rate 77 per minute, respiratory rate 18 per minute, and oxygen saturation is 100%. HEART: Regular rhythm. Normal S1, S2 sound. LUNGS: Clear bilaterally. ABDOMEN: Soft. He had an opening from the prior PEG tube. EXTREMITIES: No evidence of cyanosis or hematoma. Some atrophy in both lower extremities. LABORATORY DATA: BMP; sodium 136, potassium 4.2, chloride 93, CO2 of 29, BUN 42, creatinine 1.40, and glucose 78. On the CBC, white blood count 5.25, hemoglobin 12.7, hematocrit 37.7, and platelet count 202,000. On the liver function tests, AST 20, ALT 16, total bilirubin 0.7, and alkaline phosphatase 67. IMPRESSION: 1. Percutaneous endoscopic gastrostomy tube dislodgement. 2. Dysphagia. 3. Chronic obstructive pulmonary disease. 4. Hypertension. 5. History of laryngeal cancer, for which he had radiation therapy in the past. 6. Moderate protein-calorie malnutrition. 7. Acute renal failure. PLAN OF TREATMENT: We are going to continue Ringer Lactate 100 mL an hour. We are going to wait until the PEG tube is placed and resume home medications. We are going to give him hydralazine 10 mg IV every 4 hours as needed for hypertension, Tylenol 1000 mg IV every 6 hours as needed for pain. Once the PEG tube is in place, the feeding will be restarted and then we will resume home medications. Dr. Irving Zaragoza has been consulted from the Gastroenterology point of view to replace the PEG tube. MD STEPHANIE Barrientos/ELIAN /[id number]
[2018-08-09 20:06] VITALS: BP 170/81
[2018-08-09 20:51] VITALS: BP 170/81
[2018-08-10 01:22] VITALS: BP 158/76
[2018-08-10 04:00] VITALS: BP 170/93
[2018-08-10 06:32] LABS: ANION GAP 12.9 mmol/L (8-16); BLOOD UREA NITROGEN 29 mg/dL (7-26); BUN/CREATININE RATIO 25 (6-25); CALCIUM 9.4 mg/dL (8.4-10.2); CARBON DIOXIDE 30 mmol/L (22-29); CHLORIDE 100 mmol/L (98-107); CREATININE, SERUM 1.15 mg/dL (0.72-1.25); EST GLOMERULAR FILTRATION RATE > 60 ML/MIN (60-); GLUCOSE 62 mg/dL (74-118); POTASSIUM 4.9 mmol/L (3.5-5.1); SODIUM 138 mmol/L (136-145)
--- NOTE | 2018-08-10 07:14 | NUR ---
pt alert resp even and unlabored at this time no distress noted, no c/o pain when asked, pt able to make needs known, call light in reach.
--- NOTE | 2018-08-10 08:16 | NUR ---
patient endorsed to next shift for continuity of care.
[2018-08-10 09:06] VITALS: BP 154/98
[2018-08-10] MEDS: PANTOPRAZOLE 40 MG 10ML VIAL IV SCH (09:15)
[2018-08-10] MEDS: LACTATED RINGER'S 1,000 ML IV SCH (09:15)
[2018-08-10 11:40] VITALS: BP 133/79
--- NOTE | 2018-08-10 14:20 | NUR ---
pt tolerating tube feeding and its increments of 10 until 60 mml tolerated pt had no c/o pain no distress noted will cont to monitor.
[2018-08-10] MEDS ORDERED: MIDAZOLAM HCL 2 MG/2 ML VIAL ONE (15:00)
[2018-08-10] MEDS ORDERED: FENTANYL CITRATE/PF 100MCG/2 ML INJ ONE (15:00)
[2018-08-10] MEDS ORDERED: LABETALOL HCL 5 MG/ML 20ML VIAL ONE (15:17)
[2018-08-10] MEDS ORDERED: LIDOCAINE HCL 2% LOCAL INJ 5 ML SDV VIAL INJ ONE (15:17)
[2018-08-10] MEDS ORDERED: PROPOFOL IV EMULSION 10 MG/ML 50 ML VIAL ONE (15:17)
--- NOTE | 2018-08-10 16:30 | NUR ---
pt discharged home iv site removed no swelling no redness to site,
--- NOTE | 2018-08-10 16:47 | Operative Report ---
DATE OF PROCEDURE: 08/10/2018 SURGEON: Irving Zaragoza MD PROCEDURE: Esophagogastroduodenoscopy and PEG tube replacement. INDICATIONS FOR PROCEDURE: Dislodged G-tube, the patient with oropharyngeal dysphagia, PEG tube dependent. MEDICATIONS: The patient was done under MAC, please see anesthesiologist's note. PROCEDURE IN DETAIL: With the patient in the supine position, the flexible fiberoptic Olympus gastroscope was introduced into the esophagus under direct visualization without any difficulty. There was some patchy erythema noted in distal esophagus. The scope was then advanced with ease into the stomach and mucosa overlying the antrum and the body revealed some patchy areas of erythema. Pylorus was intubated with ease and the scope was advanced all the way to the second portion of the duodenum. The scope was then withdrawn slowly and mucosa overlying the proximal second portion and the duodenal bulb appeared to be within normal limits. The scope was then withdrawn back into the stomach and retroflexed and mucosa overlying the fundus and the cardia appeared to be within normal limits. The scope was then straightened out. PEG tube insertion was carried out through the old G-tube stoma. The scope was subsequently withdrawn after documenting a good positioning of the intragastric bumper. The patient tolerated procedure well. IMPRESSION: 1. Mild distal esophagitis. 2. Gastritis. 3. PEG tube replacement carried out in the usual fashion through the old G-tube stoma. The patient tolerated procedure well. PLAN: Can start using G-tube as soon as the patient returns to floor. Irving Zaragoza MD [facility] /[id number] cc: Eduard Hoskins MD
--- NOTE | 2018-08-10 20:09 | Discharge Summary ---
HOSPITAL COURSE: A 68 years old male with past medical history positive for laryngeal CA, history of dysphagia on the PEG tube, history of COPD, history of hypertension, history of orthostatic hypotension. The patient accidentally pulled out the feeding tube. The PEG tube was replaced by Dr. Irving Zaragoza. He is able to tolerate the PEG tube feeding. He is going home today. PHYSICAL EXAMINATION: VITAL SIGNS: Blood pressure 133/79, temperature 98.6, heart rate 70 per minute, respiratory rate 18 per minute, oxygen saturation 98%. HEART: Regular rhythm. Normal S1, S2 sound. LUNGS: Clear bilaterally. ABDOMEN: Soft. Got a PEG tube in place. LABORATORY DATA: On BMP; sodium 138, potassium 4.9, chloride 100, CO2 of 30, BUN 29, creatinine 1.15, glucose 62. On CBC, white blood count 5.25, hemoglobin 12.7, hematocrit 37.7, platelet count 202,000. AST 20, ALT 16, total bilirubin 0.7, alkaline phosphatase 67. FINAL IMPRESSION: 1. Percutaneous endoscopic gastrostomy tube dislodgement, status post percutaneous endoscopic gastrostomy tube replacement. 2. Chronic obstructive pulmonary disease. 3. Laryngeal carcinoma, status post radiation and chemotherapy in the past. 4. Dysphagia. 5. Orthostatic hypotension. 6. Hypertension. PLAN OF TREATMENT: The patient is going to home today. Continue PEG tube feedings. Continue rest of home medications. MD STEPHANIE Barrientos/ELIAN /[id number]
== END 2018-08-10 16:13 | disposition home or self-care (01) ==
LOC: ER 10:34 → ERHOLD 11:36 → MED/SURG2 12:56
PROVIDERS: ADMIT Internal Medicine; ATTEND Internal Medicine
DX: K94.23 Gastrostomy malfunction (principal); R13.12 Dysphagia, oropharyngeal phase; K29.70 Gastritis, unspecified, without bleeding; N17.9 Acute kidney failure, unspecified; E44.0 Moderate protein-calorie malnutrition; J44.9 Chronic obstructive pulmonary disease, unspecified; I10 Essential (primary) hypertension; F32.9 Major depressive disorder, single episode, unspecified; Z85.118 Personal history of other malignant neoplasm of bronchus and lung; Z85.21 Personal history of malignant neoplasm of larynx; Z82.49 Family history of ischemic heart disease and other diseases of the circulatory system; K20.9 Esophagitis, unspecified; Z68.1 Body mass index [BMI] 19.9 or less, adult; I95.1 Orthostatic hypotension
CPT/HCPCS: 36415; 43246; 80048; 80053; 83735; 85025; 99283; G0378; J0360; J2001; J2250; J3010; J7121

== ENCOUNTER 2018-08-13 11:21 | Inpatient (IN) | payer MEDICARE, OTHER ==
[~2018-08-13] VITALS: Ht 177.8 cm; Wt 54.2 kg
[2018-08-13] MEDS ORDERED: SODIUM CHLORIDE 0.9% 1000ML 1,000 ML IV STA ×2 (11:43→16:01)
[2018-08-13] MEDS ORDERED: DEXTROSE 50% SYRINGE 50 ML IV STA ×3 (11:46→16:53)
[2018-08-13] MEDS ORDERED: SODIUM CHLORIDE 0.9% 1000ML 2,000 ML IV ONE (12:00)
[2018-08-13 12:01] LABS: BASOPHILS % 0.4 % (0.0-1.0); EOSINOPHILS % 0.4 % (0.0-6.0); HEMATOCRIT 35.5 % (38.2-49.6); HEMOGLOBIN 12.1 g/dL (14.0-18.0); LYMPHOCYTES # (AUTO) 0.3 (1.0-3.2); LYMPHOCYTES % 6.7 % (18.0-39.1); MEAN CORPUSCULAR HEMOGLOBIN 30.6 pg (28-32); MEAN CORPUSCULAR HGB CONC 34.1 g/dL (31-35); MEAN CORPUSCULAR VOLUME 89.6 fL (81-99); MONOCYTES # (AUTO) 0.3 (0.2-0.8); MONOCYTES % 6.9 % (4.4-11.3); NEUTROPHILS # (AUTO) 4.1 (2.1-6.9); NEUTROPHILS % 85.2 % (38.7-80.0); PLATELET COUNT 206 x10e3/uL (140-360); RED BLOOD COUNT 3.96 x10e6/uL (4.3-5.7); RED CELL DISTRIBUTION WIDTH 16.5 % (11.7-14.4)
[2018-08-13 12:20] LABS: INR 0.92; PROTHROMBIN TIME 12.8 seconds (11.9-14.5)
[2018-08-13 12:21] LABS: PARTIAL THROMBOPLASTIN TIME 28.6 seconds (23.8-35.5)
[2018-08-13] MEDS ORDERED: ASPIRIN 81 MG CHEW TAB PO ONE (12:30)
[2018-08-13 12:32] LABS: ALBUMIN 3.5 g/dL (3.5-5.0); ALBUMIN/GLOBULIN RATIO 1.3 (0.8-2.0); ANION GAP 12.5 mmol/L (8-16); CALCIUM 9.1 mg/dL (8.4-10.2); CREATININE, SERUM 1.89 mg/dL (0.72-1.25); POTASSIUM 4.5 mmol/L (3.5-5.1)
[2018-08-13 12:39] LABS: CREATINE KINASE MB 1.2 ng/mL (0-5.0)
--- NOTE | 2018-08-13 12:47 | Diagnostic Imaging Report ---
PROCEDURE: CHEST SINGLE (PORTABLE) COMPARISON: Chest radiograph 06/18/2018, CT chest 05/03/2018. INDICATIONS: PNEUMONIA FINDINGS: The lungs are well-inflated. Dense right upper lobe consolidation and patchy airspace disease in the right and left lower lungs. Heart size is normal with tortuous thoracic aorta. No acute osseous abnormality. CONCLUSION: Multifocal pneumonia involving the right upper lobe and bilateral lower lungs. Followup chest radiograph in 8 weeks is suggested to document resolution after appropriate treatment. Dictated by: Yg Clark M.D. on 08/13/2018 at 12:51 Electronically approved by: Yg Clark M.D. on 08/13/2018 at 12:51
[2018-08-13] MEDS: PIPER-TAZ 3.375 GM 50 ML IV SCH ×2 (14:58→22:03)
[2018-08-13 15:12] LABS: BILIRUBIN,URINE NEGATIVE (NEGATIVE); CLARITY,URINE CLEAR (CLEAR); COLOR,URINE YELLOW (YELLOW); KETONES,URINE NEGATIVE (NEGATIVE); LEUKOCYTE ESTERASE ,URINE NEGATIVE (NEGATIVE); NITRITE,URINE NEGATIVE (NEGATIVE); PROTEIN,URINE DIPSTICK NEGATIVE (NEGATIVE); URINE UROBILINOGEN 0.2 mg/dL (0.2 - 1)
[2018-08-13 15:26] LABS: EPITHELIAL CELLS,URINE RARE /LPF
[2018-08-13] MEDS ORDERED: DEXTROSE 5%/0.9% SOD CHL 1,000 ML IV ONE (15:30)
[2018-08-13] MEDS ORDERED: SODIUM CHLORIDE 0.9% 1000ML 1,000 ML ONE (16:02)
[2018-08-13] MEDS ORDERED: SODIUM CHLORIDE 0.9% 1000ML 1,000 ML IV SCH (16:23)
[2018-08-13] MEDS ORDERED: NUTRITIONAL SUPPLEMENT PEG SCH (18:45)
[2018-08-13] MEDS: ALBUTEROL SULF 0.083% NEB SOLN 3 ML NEB NEB SCH (18:50)
[2018-08-13] MEDS: IPRATROPIUM BROMIDE 0.02% 2.5 ML NEB NEB SCH ×2 (18:50→19:30)
[2018-08-13 20:30] VITALS: BP 138/72
--- NOTE | 2018-08-13 20:30 | NUR ---
Received patient from ER via stretcher. Patient is awake and alert. Denies pain at this time. Has crackles to both upper lobes, no distress. Applied o2 n/c 3L @ 88%. stated patient o2 sat are always low <90%. Arrived on unit with 2 iv sites. Call light within reach and instructed to call for assistance. Bed alarm on.
[2018-08-13 20:39] VITALS: BP 138/72
[2018-08-13 21:20] LABS: CREATINE KINASE MB 3.9 ng/mL (0-5.0)
[2018-08-13] MEDS: ROPINIROLE HCL 0.25 MG TAB PO SCH (22:03)
--- NOTE | 2018-08-13 22:45 | NUR ---
Paged Dr. Hoskins regarding elevated creatine kinase lab.
--- NOTE | 2018-08-13 22:50 | NUR ---
Dr. Hoskins called back and received orders.
[2018-08-13] MEDS: DEXTROSE 5%/0.45% SOD CHL 1,000 ML IV SCH (23:50)
[2018-08-14] VITALS (7 sets, daily range): BP systolic 104–193; BP diastolic 55–90
[2018-08-14] MEDS: IPRATROPIUM BROMIDE 0.02% 2.5 ML NEB NEB SCH ×4 (00:05→20:30)
[2018-08-14] MEDS: ALBUTEROL SULF 0.083% NEB SOLN 3 ML NEB NEB SCH ×7 (00:05→23:00)
--- NOTE | 2018-08-14 01:49 | History and Physical ---
HISTORY OF PRESENT ILLNESS: The patient is a 68-year-old male with past medical history positive for laryngeal CA, recently discharged from the hospital after he self removed the PEG tube. The PEG tube was replaced by Dr. Irving Zaragoza. He went home over the weekend. Apparently, he started getting confusion. Family brought him to the emergency room. He was found to have pneumonia. He was started empirically on IV antibiotics. REVIEW OF SYSTEMS: CARDIOVASCULAR: No chest pain or palpitation. RESPIRATORY: No shortness of breath. No cough. GASTROINTESTINAL: No nausea. No vomiting. No diarrhea. GENITOURINARY: No frequency. No dysuria. ALLERGIES: HE IS NOT ALLERGIC TO ANY MEDICATION. PAST SOCIAL HISTORY: He used to smoke. He does not smoke anymore. He does not drink. PAST MEDICAL HISTORY: Positive for COPD, hypertension, chronic renal failure, history of chronic pain syndrome, laryngeal cancer status post radiation and chemotherapy. PHYSICAL EXAMINATION: HEART: Showed regular rhythm. Normal S1, S2 sound. LUNGS: Clear bilaterally. ABDOMEN: Soft. EXTREMITIES: Show no evidence of cyanosis or hematoma. FINAL IMPRESSION: 1. Aspiration pneumonia. 2. Chronic obstructive pulmonary disease exacerbation secondary to aspiration pneumonia. 3. Acute on chronic renal failure stage 3. 4. Hypertension with chronic renal failure. 5. Chronic pain syndrome. PLAN OF TREATMENT: Continue IV fluids at 125 mL an hour, Zosyn 3.375 g IV q.6 hours, albuterol q.4 hours, Atrovent q.6 hours. We are going to resume home medications. We are going to consult Dr. Lowery for Pulmonology. The patient will be admitted to the hospital. Continue oxygen. MD STEPHANIE Barrientos/ELIAN /[id number]
--- NOTE | 2018-08-14 01:49 | Consultation ---
DATE OF CONSULTATION: 08/13/2018 Pulmonary Consultation REASON FOR THE CONSULT: Aspiration pneumonia, shortness of breath. HISTORY OF PRESENT ILLNESS: Mr. Carroll is a 68-year-old male, well known to me from previous admission. The patient has history of head and neck cancer and multiple admissions here in the past. The patient had carcinoma of the tongue treated with radiation and MD Evans in remote past. Also now has a PEG tube. He had a history of recurrent aspiration pneumonia, came in again with shortness of breath. Chest x-ray showing dense right upper lobe infiltrate. He also has nodules in the lungs and previous CAT scan and evidence of bronchiectasis as well. He denies any chest pain, nausea, or vomiting at this point. REVIEW OF SYSTEMS: GENERAL: Denies any fever or chills. Has no shortness of breath. HEAD: Denies any head trauma. ENT: Denies any earache. CVS: Denies any chest pain. RESPIRATORY: Shortness of breath. The rest of the review of systems are negative except as in HPI. PAST MEDICAL HISTORY: Tongue cancer in 2003, lung cancer, chronic pain, hypertensive heart disease, and PEG tube . FAMILY AND SOCIAL HISTORY: He does not smoke. Does not drink. He is . PHYSICAL EXAMINATION: VITAL SIGNS: Temperature 98.4, pulse of 89, blood pressure 116/65, respiratory rate of 18, and O2 saturation 94%. HEENT: Head is atraumatic and normocephalic. CHEST: Crackles on the right side. HEART: S1, S2 audible. ABDOMEN: Soft. EXTREMITIES: No pedal edema. NEUROLOGIC: Awake and alert. LABORATORY DATA: White count of 4000, hemoglobin 12.1, and platelets 206. Chemistry; sodium 128, potassium 4.5, chloride 91, BUN 48, and creatinine 1.89. Chest x-ray images reviewed showing dense right upper lobe and middle lobe infiltrate. ASSESSMENT: Mr. Carroll is a 68-year-old male with history of recurrent aspiration, has PEG tube, came in with dense right-sided infiltrate, likely has aspiration pneumonia again. PLAN: 1. Continue the patient on IV Zosyn. Oxygen as needed to keep the O2 saturation more than or equal to 98%. 2. Resume home medications. Nebulizer treatment q.4 hourly. MD DENISE Apple/ELIAN /[id number]
[2018-08-14] MEDS: PIPER-TAZ 3.375 GM 50 ML IV SCH ×4 (02:30→22:00)
[2018-08-14] MEDS: LEVOTHYROXINE SODIUM 75 MCG TAB PO SCH (05:08)
[2018-08-14 05:10] LABS: BASOPHILS % 0.2 % (0.0-1.0); EOSINOPHILS % 0.2 % (0.0-6.0); HEMATOCRIT 36.2 % (38.2-49.6); HEMOGLOBIN 12.1 g/dL (14.0-18.0); LYMPHOCYTES # (AUTO) 0.3 (1.0-3.2); LYMPHOCYTES % 7.5 % (18.0-39.1); MEAN CORPUSCULAR HEMOGLOBIN 30.6 pg (28-32); MEAN CORPUSCULAR HGB CONC 33.4 g/dL (31-35); MEAN CORPUSCULAR VOLUME 91.4 fL (81-99); MONOCYTES # (AUTO) 0.2 (0.2-0.8); MONOCYTES % 3.6 % (4.4-11.3); NEUTROPHILS # (AUTO) 3.9 (2.1-6.9); NEUTROPHILS % 87.8 % (38.7-80.0); PLATELET COUNT 176 x10e3/uL (140-360); RED BLOOD COUNT 3.96 x10e6/uL (4.3-5.7); RED CELL DISTRIBUTION WIDTH 16.7 % (11.7-14.4)
[2018-08-14 05:23] LABS: ANION GAP 13.6 mmol/L (8-16); CALCIUM 8.7 mg/dL (8.4-10.2); CREATININE, SERUM 1.32 mg/dL (0.72-1.25); POTASSIUM 4.6 mmol/L (3.5-5.1)
[2018-08-14 06:23] LABS: CREATINE KINASE MB 1.6 ng/mL (0-5.0)
--- NOTE | 2018-08-14 07:55 | Diagnostic Imaging Report ---
EXAMINATION: CHEST SINGLE (PORTABLE) INDICATION: Pneumonia. COMPARISON: Chest radiograph 08/13/2018. CT chest 05/03/2018. FINDINGS: TUBES and LINES: None. LUNGS: Slight interval decrease in confluent right upper lobe consolidation and patchy opacities in the right lung base. Mild patchy left basilar opacities persist. PLEURA: No pleural effusion or pneumothorax. HEART AND MEDIASTINUM: The cardiomediastinal silhouette is unremarkable. BONES AND SOFT TISSUES: No acute osseous abnormality. UPPER ABDOMEN: No free air under the diaphragm. IMPRESSION: Slight interval decrease in multifocal patchy opacities, most consistent with pneumonia. Given prior CT chest findings from 05/03/2018, recommend follow-up chest CT in 3 months. Signed by: Dr. Su Bains MD on 08/14/2018 7:51 AM
[2018-08-14] MEDS: FLUDROCORTISONE ACETATE 0.1 MG TAB PO SCH ×2 (08:00→16:30)
[2018-08-14] MEDS: TAMSULOSIN HCL 0.4 MG CAP PO SCH (08:00)
[2018-08-14] MEDS: SERTRALINE HCL 100 MG TAB PO SCH (08:00)
[2018-08-14] MEDS ORDERED: CLONIDINE HCL 0.1 MG TAB PO SCH (09:00)
[2018-08-14] MEDS ORDERED: LEVOTHYROXINE SODIUM 100 MCG TAB PO SCH (09:00)
[2018-08-14] MEDS ORDERED: AMLODIPINE BESYLATE 10 MG TAB PO SCH (09:00)
[2018-08-14] MEDS ORDERED: SERTRALINE HCL 100 MG PO SCH (09:00)
[2018-08-14] MEDS ORDERED: METOPROLOL SUCCINATE 50 MG TAB XL PO SCH (09:00)
[2018-08-14] MEDS: AMLODIPINE BESYLATE 5 MG TAB PO SCH ×2 (10:50→16:30)
[2018-08-14 11:04] LABS: BAND NEUTROPHILS % (MANUAL) 1 %; LYMPHOCYTES % (MANUAL) 17 % (19-48); MONOCYTES % (MANUAL) 11 % (3.4-9.0); MYELOCYTES % (MANUAL) 3 % (0-0); NEUTROPHILS % (MANUAL) 68 % (40-74); PLATELET ESTIMATE ADEQUATE; PLATELET MORPHOLOGY COMMENT NORMAL
[2018-08-14 11:05] LABS: RBC MORPHOLOGY COMMENT NORMAL
--- NOTE | 2018-08-14 12:08 | Consultation ---
DATE OF CONSULTATION: 08/14/2018 Cardiac Consultation REASON FOR CONSULTATION: Elevated CK enzymes, shortness of breaths. HISTORY: Information taken from record and from the patient, the patient does not like to communicate much. Apparently, he is an unfortunate 68-year-old gentleman, known with head and neck cancer. The patient in fact had radiation therapy to tongue cancer in [facility] in 2003. Since that time, he got PEG tube. He is very depressed about that. He is followed at home. The patient had several admissions with respiratory failure in the past. He was here recently when he pulled his PEG tube and it needed to be repositioned. He had also prior admission with skin infection and cellulitis around the PEG tube. Regardless, it was noted by his family, the patient is weak, confused, coughing a lot, and having noisy breathing. He was brought to the emergency room. X-ray showed multifocal aspiration pneumonia involving the right lung lobe and upper lobes, started on antibiotics. His BUN and creatinine were elevated at 48 and 1.9. His CK was elevated at 438. His troponin is normal. Cardiac consultation is obtained because of the respiratory distress, elevated troponin, and some abnormalities on his EKG with ST-T segment changes. REVIEW OF SYSTEMS: GENERAL: The patient seems to be unhappy. He is talking monotonous phase. He likes to do things, but he is unable to. HEENT: Very abnormal monotonous voice since his tongue cancer. PULMONARY: Cough, but no hemoptysis. Shortness of breath. No pleuritic chest pain. CARDIAC: He denied having any angina. He does have easy fatigability and shortness of breath. His activities are limited. GI: The patient unable to swallow. He got PEG tube. He does have constipation. He uses diaper. NEUROLOGICAL: The patient is weak. He does not do much of activity. He is dependent on other people and that make him unhappy. There are also episodes of "altered mental status and confusion" as per record, the patient denied having any of that. SOCIAL HISTORY: He is nonsmoker and non-alcohol drinker. 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 PAST MEDICAL HISTORY: 1. Tongue cancer status post radiation. 2. Chronic PEG tube and difficulty swallowing. 3. COPD with periods of exacerbation. 4. Repeated aspiration pneumonia. 5. PEG tube. 6. Repeated cellulitis around the PEG tube. 7. Hypertension. 8. Chronic pain. 9. Right knee surgery. 10. Prostate problem. 11. Hypothyroidism. 12. Restless legs syndrome. FAMILY HISTORY: There is no family history of premature coronary artery disease. HOME MEDICATIONS: 1. Norvasc 10 mg daily. 2. Clonidine 0.1 mg twice a day. 3. Fludrocortisone 0.1 mg twice a day. 4. Levothyroxine 100 mcg a day. 5. Toprol-XL 50 mg a day. 6. Flomax 0.4 mg a day. 7. Elavil 50 mg a day. 8. Duragesic patch 50 every 72 hours. 9. Ropinirole 0.25 mg a day. ALLERGIES: NONE. PHYSICAL EXAMINATION: GENERAL: Height of 5 feet 10 inches, weight of 119 pounds. Thin gentleman, in no acute distress. VITAL SIGNS: Blood pressure 193/90, heart rate of 100, respiratory rate of 20, temperature of 96 Fahrenheit. HEENT: Monotone speech. Pupils are reactive. NECK: No elevation of jugular venous pulsation. No thyromegaly. No carotid bruit. CHEST: Bilateral crackles and rales. HEART: PMI 5th left intercostal space. Normal first and second heart sounds. Soft flow murmur. ABDOMEN: PEG tube in place. Diaper is noted in place. No organomegaly. No abdominal bruits. EXTREMITIES: No cyanosis, no clubbing. No peripheral edema. LABORATORY DATA: Admission BUN at 48, creatinine of 1.9; with IV hydration today at 30 and 1.32. BNP is normal. CKs are elevated at 438 and 253, but troponins are normal. White blood cell count of 4.3, hemoglobin 12.1, hematocrit 36%, platelet count of 176. Chest x-ray showing bilateral aspiration pneumonia most pronounced in the right lower lobe and bilateral upper lobes. IMPRESSION AND PLAN: 1. Aspiration pneumonia. 2. Respiratory distress secondary to aspiration pneumonia. 3. Dehydration and acute tubular necrosis, improving with hydration. 4. Severe hypertension. 5. Laryngeal cancer status post radiation. 6. Inability to swallow with chronic PEG tube. 7. Chronic pain. 8. Prostate problem. 9. Electrolyte imbalance. 10. Elevated CKs, multifactorial. 11. Repeated confusion, possible secondary to hypoxemia or medication. Cardiac otero, my recommendation will be IV fluid. We will resume the patient's antihypertensives medication and thyroxine. We will try to avoid ARB and PATRICIA inhibitor because of repeated dehydration and elevation of BUN and creatinine. We will continue Norvasc, which is reasonable. Probably, we will hold on the clonidine for the time being because of the periods of confusion. We will get an echocardiogram. We will follow the patient's progression with you. We will recommend conservative approach for his cardiac issues. MD YARI Villegas/MODL /[id number]
[2018-08-14] MEDS: DEXTROSE 5%/0.45% SOD CHL 1,000 ML IV SCH (12:30)
--- NOTE | 2018-08-14 16:20 | NUR ---
aware of T 100.6. See orders
[2018-08-14] MEDS ORDERED: ACETAMINOPHEN 325 MG TAB PO PRN (16:30)
--- NOTE | 2018-08-14 16:39 | Progress Note ---
DATE: 08/14/2018 Internal Medicine Progress Note SUBJECTIVE: The patient had fever today. PHYSICAL EXAMINATION: VITAL SIGNS: Blood pressure 117/56, temperature 98.1, heart rate 104 per minute, respiratory rate is 20 per minute, O2 saturation 94%. HEART: Showed regular rhythm. Normal S1, S2 sound. LUNGS: Clear bilaterally. ABDOMEN: Soft. LABORATORY DATA: BMP; sodium 131, potassium 4.6, chloride 98, CO2 24, BUN 30, creatinine 1.32, glucose 110. On CBC, white blood count 4.39, hemoglobin 12.1, hematocrit 36.2, platelet count 176,000. PT 12.8, INR 0.92, PTT 28.6. AST 16, ALT 10, total bilirubin 0.6, alkaline phosphatase 55. FINAL IMPRESSION: 1. Aspiration pneumonia. 2. Chronic obstructive pulmonary disease exacerbation. 3. Acute on chronic renal failure stage 3. 4. Hypertension with chronic renal failure. PLAN OF TREATMENT: Continue albuterol q.4 hours. Continue Atrovent q.6 hours. Continue Zosyn 3.375 g IV q.8 hours. Continue D5 normal saline 25 mL an hour. Continue Requip 0.5 mg at bedtime, amlodipine 5 mg twice a day. Continue levothyroxine 150 mg daily, fentanyl patch every 72 hours, Flomax 0.4 mg daily, sertraline 100 mg daily, fludrocortisone 0.1 mg twice a day. MD STEPHANIE Barrientos/ELIAN /[id number]
[2018-08-14] MEDS ORDERED: AMLODIPINE BESYLATE 5 MG TAB PO ONE (17:00)
--- NOTE | 2018-08-14 18:30 | NUR ---
Resting in bed mid fowlers position, side rails upx2, call light within reach. AAOX3 to time, person, place, periods of forgetfulness. Respirations even and unlabored. O2 4L NC. Report to be given to oncoming nurse of patient's status.
--- NOTE | 2018-08-14 19:00 | NUR ---
RECEIVED PATIENT IN REPORT. PATIENT RESTING IN BED AT THIS TIME. NO PAIN REPORTED. NO S&S OF DISTRESS NOTED. O2@4L VIA NC. BED LOCKED IN LOWEST POSITION, SIDE RAILS UPX2, CALL LIGHT IN REACH.
[2018-08-14] MEDS: ROPINIROLE HCL 0.25 MG TAB PO SCH (22:45)
[2018-08-14] MEDS ORDERED: FENTANYL 50 MCG/HR PATCH TOP SCH (23:00)
[2018-08-15] VITALS (7 sets, daily range): BP systolic 131–179; BP diastolic 62–89
--- NOTE | 2018-08-15 | NUR ---
CHANGING TUBE FEED BOTTLE AND LINES. PATIENT STATES HE DOES NOT GET HIS FEED DURING THE NIGHT SO HE CAN SLEEP MORE COMFORTABLY. FEED HELD UNTIL PATIENT WAKES UP.
[2018-08-15] MEDS: IPRATROPIUM BROMIDE 0.02% 2.5 ML NEB NEB SCH ×4 (01:00→19:30)
[2018-08-15] MEDS: DEXTROSE 5%/0.45% SOD CHL 1,000 ML IV SCH ×2 (01:55→13:18)
[2018-08-15] MEDS: PIPER-TAZ 3.375 GM 50 ML IV SCH ×4 (02:45→22:25)
[2018-08-15] MEDS: ALBUTEROL SULF 0.083% NEB SOLN 3 ML NEB NEB SCH ×5 (03:00→19:30)
[2018-08-15 05:18] LABS: HEMATOCRIT 30.8 % (38.2-49.6); LYMPHOCYTES # (AUTO) 0.5 (1.0-3.2); LYMPHOCYTES % 26.3 % (18.0-39.1); MEAN CORPUSCULAR HEMOGLOBIN 29.9 pg (28-32); MEAN CORPUSCULAR HGB CONC 32.5 g/dL (31-35); MEAN CORPUSCULAR VOLUME 92.2 fL (81-99); MONOCYTES # (AUTO) 0.1 (0.2-0.8); MONOCYTES % 4.4 % (4.4-11.3); NEUTROPHILS # (AUTO) 1.4 (2.1-6.9); NEUTROPHILS % 65.8 % (38.7-80.0); PLATELET COUNT 146 x10e3/uL (140-360); RED BLOOD COUNT 3.34 x10e6/uL (4.3-5.7); RED CELL DISTRIBUTION WIDTH 16.5 % (11.7-14.4)
--- NOTE | 2018-08-15 05:30 | NUR ---
PATIENT'S O2 SAT REPORTED TO BE IN MID-80S, DESPITE O2 @ 4L VIA NC. ASSESSED PATIENT, NO SOB OR DIFFICULTY BREATHING REPORTED. REMINDED PATIENT TO TAKE DEEP, SLOW BREATHS IN THROUGH THE NOSE; O2 SAT STAYED AT 85%. ASKED PATIENT TO COUGH, NO CHANGE IN O2 SAT. ENSURED NO KINKS IN TUBES. CALLED RESPIRATORY TO ADMINISTER BREATHING TREATMENT IN HOPES IT WILL HELP TO BRING O2 SAT BACK UP.
[2018-08-15 05:31] LABS: ALANINE AMINOTRANSFERASE 33 IU/L (0-55); ALBUMIN 2.5 g/dL (3.5-5.0); ALBUMIN/GLOBULIN RATIO 0.8 (0.8-2.0); ALKALINE PHOSPHATASE 63 IU/L (40-150); ANION GAP 11.1 mmol/L (8-16); BLOOD UREA NITROGEN 24 mg/dL (7-26); BUN/CREATININE RATIO 23 (6-25); CALCIUM 8.8 mg/dL (8.4-10.2); CARBON DIOXIDE 27 mmol/L (22-29); CHLORIDE 98 mmol/L (98-107); CREATININE, SERUM 1.05 mg/dL (0.72-1.25); EST GLOMERULAR FILTRATION RATE > 60 ML/MIN (60-); GLUCOSE 81 mg/dL (74-118); POTASSIUM 4.1 mmol/L (3.5-5.1); SODIUM 132 mmol/L (136-145)
[2018-08-15] MEDS: LEVOTHYROXINE SODIUM 75 MCG TAB PO SCH (06:41)
--- NOTE | 2018-08-15 07:00 | NUR ---
PATIENT PROVIDED SPUTUM SAMPLE. CHECKED O2 SAT VIA FOREHEAD SENSOR, 97% NOTED. PATIENT REPORTS FEELING A LITTLE BETTER AFTER EXPECTORATING SPUTUM.
--- NOTE | 2018-08-15 08:30 | NUR ---
patient's concerned about some medications not added to med rec. Reviewed medications with .
[2018-08-15] MEDS ORDERED: LASIX20 MG PEG (08:48)
[2018-08-15] MEDS ORDERED: FENTANYL 50 MCG/HR PATCH TOP SCH ×2 (09:00→23:00)
[2018-08-15] MEDS: AMLODIPINE BESYLATE 5 MG TAB PO SCH ×2 (09:16→17:07)
[2018-08-15] MEDS: TAMSULOSIN HCL 0.4 MG CAP PO SCH (09:16)
[2018-08-15] MEDS: SERTRALINE HCL 100 MG TAB PO SCH (09:16)
[2018-08-15] MEDS: FLUDROCORTISONE ACETATE 0.1 MG TAB PO SCH ×2 (09:16→17:07)
[2018-08-15] MEDS ORDERED: PREDNISONE20 MG PO (10:28)
[2018-08-15] MEDS ORDERED: LISINOPRIL10 MG PO (10:28)
--- NOTE | 2018-08-15 10:40 | NUR ---
Discussed home bp medications with Yg MACDONALD. Per Yg "adjustments have been made to bp medications."
--- NOTE | 2018-08-15 10:42 | NUR ---
Yg Dolan MACHINE ROOM ENGINEER aware of patient's EKG ST. Patient on tele ST 111. See orders
[2018-08-15] MEDS: METOPROLOL TARTRATE 25 MG TAB PO SCH ×2 (11:00→17:07)
--- NOTE | 2018-08-15 14:18 | NUR ---
Nutrition Intervention Note RD Recommendation(s) for Physician: The patient meets criteria for unspecified SEVERE protein-calorie malnutrition. - Rec continuous TF with Glucerna 1.5 @50mL/hr, advance as tolerated, to goal rate of 105mL/hr for 15hr (2363kcal, 130g protein, 1195mL water) ONLY from 6am to 9pm - Continue water flushes of 10mL/hr for 15hr, additional water per MD - Check labs, GI tolerance, weight daily Plan of Care: RD following, monitoring for tolerance and adequacy, TF rec Nutrition reason for involvement: Tube feeding, Nutrition risk trigger MST RD Assessment 08/15 68yo M, who was admitted for aspiration PNA. Pt was well known to me from his previous admissions. Pt with history of tongue cancer, requiring EN through PEG. RN noted that pt does not get feeding during night time so he can sleep comfortably. Looking at his previous admissions, pt has probably lost ~10-15lbs in the last 3 months. Visited pt in the room. Pt stated that he usually get all 7 feedings (Osmolite 1.5 - 2485kcal, 104g protein, 1267mL water) during daytime. His last feeding is usually before 9pm. He has been tolerating TF well without any issue. Communicated tube feeding adjustment that need to be made in order to meet his protein and calories needs; pt was agreeable with plan. Notified RN. Will continue to monitor and follow. Principal Problems/Diagnoses: 1. Aspiration pneumonia. 2. Chronic obstructive pulmonary disease exacerbation. 3. Acute on chronic renal failure stage 3. PMH: 1. Tongue cancer status post radiation. 2. Chronic PEG tube and difficulty swallowing. 3. COPD with periods of exacerbation. 4. Repeated aspiration pneumonia. 5. Repeated cellulitis around the PEG tube. 6. Hypertension. GI: abdomen soft, non-tender, flatus present Skin: no pressure wound noted Labs: (08/15) Na 132 L Meds: dextrose, zosyn, lopressor Ht: 70in Wt: 119.19lb 08/15 (135lb 05/2018) BMI: 17.1kg/m2 IBW: 166lb +/- 10% Malnutrition Evaluation (08/15/18) The patient meets criteria for unspecified SEVERE protein-calorie malnutrition. Energy intake: <75% of estimated energy requirements for >3 months Weight loss: >7.5% in 3 months (Acute) Fat loss: Severe clavicle protrusion Muscle loss: Severe temporal depression Supporting Evidence: Fluid accumulation: None Functional Status: no changes Nutrition Prescription (Diet Order): Osmolite 1.2 (7 bolus feedings of 237cc) Estimated Nutritional Needs: Calories: 2250 2625kcal(30-35kcal/kg/d) Weight used: IBW Protein: 113 150g (1.5-2g/kg/d) Weight used: IBW Diet Adequacy: Not meeting calorie needs, Not meeting protein needs Diet Education Needs Assessment: Diet education indicated and patient agreeable. Spoke with pt regarding the tube feeding adjustment we need to make in order to meet his est protein and calorie needs. Pt was agreeable with plan. Nutrition Care Level: mod Nutrition Diagnosis: none at this time. Goal: Patient will meet 75-100% of estimated needs by follow up Progress: Progressing Interventions: Composition, Rate, Route Monitoring/Evaluation: Total energy intake, Total protein intake, Formula/Solution, Weight change Signed: Conchis Arango MS, RD, LD
--- NOTE | 2018-08-15 16:00 | NUR ---
PEG tube dressing changed. No residual noted from PEG tube. Denies nausea
--- NOTE | 2018-08-15 17:00 | NUR ---
Discussed home medications with . states at this time we will hold prednisone.
[2018-08-15] MEDS: ENOXAPARIN 30 MG/0.3 ML SYR SC SCH (17:07)
--- NOTE | 2018-08-15 17:41 | NUR ---
Glucerna 1.5 50ml/hr free water 150ml q6 hours. No residual noted at this time
--- NOTE | 2018-08-15 18:20 | NUR ---
Discussed with patient's over the phone about home medications and changes made by pharmacists. Aware prednisone will be held at this time per . Voiced understanding. Patient's requesting fentanyl patch to be changed to every 48 hours now. Informed will be paged to notify of request. Patient's raising her voiced states "What the hell are yall doing. You need to change fentanyl patch to 48 hours now!." Instructed patient to lower voice. Attempted to explain orders needed from doctor. also has concerns about TF, but unable to explain. refuses to listen to explanation. requested to talk to charge nurse, call transferred to charge nurse.
--- NOTE | 2018-08-15 18:52 | NUR ---
spoke with , upset, screaming at nurse and charge nurse wondering why pts tube feeding was changed, and stated patient gets his pain patch (duragesic ) every 48hrs instead of every 72 hrs as ordered. Informed we will notify dr ledesma re: request to change duragesic patch, informed nurse we needed to change patch now, this nurse informed that we could not do that and will have to notify the doctor. Informed we will have dietary call her regarding changes to feeds. voiced understanding
--- NOTE | 2018-08-15 19:03 | Progress Note ---
DATE: 08/15/2018 Internal Medicine Progress Note SUBJECTIVE: The patient is doing better. PHYSICAL EXAMINATION: VITAL SIGNS: Blood pressure 148/70, temperature 99.9, heart rate 114 per minute, respiratory rate 24 per minute, oxygen saturation 98%. HEART: Regular rhythm. Normal S1, S2 sound. LUNGS: Decreased breath sounds bilaterally. ABDOMEN: Nondistended. EXTREMITIES: No evidence of cyanosis or hematoma. MICROBIOLOGY: Blood culture negative. Sputum culture is still pending. LABORATORY DATA: Sodium 132, potassium 4.1, chloride 98, CO2 27, BUN 24, creatinine 1.05, glucose 81. CBC; white blood count 2.05, hemoglobin 10.0, hematocrit 30.8, platelet count of 146,000. PT 12.8, INR 0.92, PTT 28.6. AST 22, ALT is 33, total bilirubin 0.6, alkaline phosphatase 863. TREATMENT AND PLAN: 1. Continue PEG tube feedings. 2. Continue albuterol q.4 hours. 3. Continue Atrovent q.6 hours. 4. Continue Zosyn 3.375 g IV piggyback q.6 hours. 5. Continue levothyroxine 150 mcg daily. 6. Tylenol 650 mg q.4 hours. 7. Flomax 0.4 mg daily. 8. Sertraline 100 mg daily. 9. Lovenox 30 mg subcutaneously daily. 10. Fludrocortisone 0.1 mg twice a day. 11. Metoprolol 25 mg twice a day. 12. Requip 0.5 mg at bedtime. 13. Amlodipine 5 mg twice a day. 14. Fentanyl patch q.72 hours. MD STEPHANIE Barrientos/ELIAN /[id number]
--- NOTE | 2018-08-15 19:10 | NUR ---
Report given to oncoming nurse of patient's status. Patient resting mid fowlers position, side rails upx2, call light within reach. AAOX3 to time, person, place. Respirations even and unlabored. O2 4L NC.
[2018-08-15] MEDS: ROPINIROLE HCL 0.25 MG TAB PO SCH (22:25)
[2018-08-16] VITALS (8 sets, daily range): BP systolic 135–179; BP diastolic 74–91
[2018-08-16] MEDS: ALBUTEROL SULF 0.083% NEB SOLN 3 ML NEB NEB SCH ×7 (00:05→19:30)
[2018-08-16] MEDS: PIPER-TAZ 3.375 GM 50 ML IV SCH ×4 (03:00→20:50)
[2018-08-16] MEDS: LEVOTHYROXINE SODIUM 75 MCG TAB PO SCH (06:30)
[2018-08-16] MEDS: IPRATROPIUM BROMIDE 0.02% 2.5 ML NEB NEB SCH ×5 (07:00→22:54)
--- NOTE | 2018-08-16 07:00 | NUR ---
RECEIVED BEDSIDE REPORT FROM NIGHT RN. PT DENIES NEEDS AT THIS TIME.
[2018-08-16] MEDS: DEXTROSE 5%/0.45% SOD CHL 1,000 ML IV SCH ×2 (08:25→13:30)
[2018-08-16] MEDS: FLUDROCORTISONE ACETATE 0.1 MG TAB PO SCH ×2 (08:26→17:37)
[2018-08-16] MEDS: TAMSULOSIN HCL 0.4 MG CAP PO SCH (08:26)
[2018-08-16] MEDS: AMLODIPINE BESYLATE 5 MG TAB PO SCH ×2 (08:27→17:37)
[2018-08-16] MEDS: METOPROLOL TARTRATE 25 MG TAB PO SCH (08:27)
[2018-08-16] MEDS: SERTRALINE HCL 100 MG TAB PO SCH (08:27)
--- NOTE | 2018-08-16 11:40 | NUR ---
IMM letter delivered and explained to pt. He verbalized understanding. Signed copy placed in chart. Copy to pt.
[2018-08-16] MEDS: ENOXAPARIN 30 MG/0.3 ML SYR SC SCH (17:37)
[2018-08-16] MEDS: METOPROLOL TARTRATE 50 MG TAB PO SCH (17:37)
--- NOTE | 2018-08-16 19:00 | NUR ---
RECEIVED PATIENT IN REPORT. PATIENT SITTING IN CHAIR AT THIS TIME. NO PAIN REPORTED. NO S&S OF DISTRESS NOTED. TUBE FEED RUNNING AT 50 ML/HR. WILL CONTINUE TO MONITOR.
--- NOTE | 2018-08-16 19:25 | Progress Note ---
DATE: 08/16/2018 Internal Medicine Progress Note SUBJECTIVE: The patient is doing well. No significant complaint. PHYSICAL EXAMINATION: VITAL SIGNS: Blood pressure 164/86, temperature 98.3, heart rate 103 per minute, respiratory rate is 20 per minute, and O2 saturation 96%. HEART: Regular rhythm. Normal S1, S2 sound. LUNGS: Clear bilaterally, significantly decreased. LABORATORY DATA: BMP; sodium 132, potassium 4.1, chloride 98, CO2 of 27, BUN 24, creatinine 1.05, and glucose 81. CBC; white count 2.05, hemoglobin 10.0, hematocrit 30.8, and platelet count 146,000. PTT 12.8, INR 0.92, and PTT 28.6. AST 22, ALT 33, total bilirubin 0.6, and alkaline phosphatase 63. IMPRESSION: 1. Aspiration pneumonia which is recurrent. 2. Chronic obstructive pulmonary disease exacerbation. 3. Acute on chronic renal failure stage 3. 4. Hypertension with hypertensive nephropathy. PLAN OF TREATMENT: Continue albuterol q.6 hours. Continue Atrovent q.6 hours. Continue Zosyn 3.375 g IV q.6 hours. Continue with IV fluids, which we are going to discontinue. Continue sertraline 100 mg daily, Lovenox 30 mg subcutaneously daily, Flomax 0.4 mg daily, fludrocortisone 0.1 mg twice a day, metoprolol 25 mg twice a day, Requip 0.5 mg at bedtime, amlodipine 5 mg twice a day, Fentanyl q.48 hours patch, levothyroxine 100 mcg daily, and Tylenol 650 mg p.o. q.4 hours as needed. MD STEPHANIE Barrientos/ELIAN /[id number]
[2018-08-16] MEDS: FENTANYL 50 MCG/HR PATCH TOP SCH (22:20)
[2018-08-16] MEDS: ROPINIROLE HCL 0.25 MG TAB PO SCH (22:20)
--- NOTE | 2018-08-16 22:20 | NUR ---
TUBE FEED TURNED OFF AT 2029 AT REQUEST OF PATIENT. RESIDUAL AT THIS TIME <10ML. MEDICATION GIVEN VIA TUBE FEED WITH 50 ML TOTAL FLUSH.
[2018-08-17] VITALS (7 sets, daily range): BP systolic 140–197; BP diastolic 75–91
[2018-08-17] MEDS: PIPER-TAZ 3.375 GM 50 ML IV SCH ×2 (02:21→08:45)
[2018-08-17] MEDS: IPRATROPIUM BROMIDE 0.02% 2.5 ML NEB NEB SCH ×5 (03:25→23:10)
[2018-08-17] MEDS: ALBUTEROL SULF 0.083% NEB SOLN 3 ML NEB NEB SCH ×6 (03:25→23:10)
[2018-08-17] MEDS: LEVOTHYROXINE SODIUM 75 MCG TAB PO SCH (06:40)
--- NOTE | 2018-08-17 07:00 | NUR ---
RECEIVED BEDSIDE REPORT FROM NIGHT RN. PT DENIES NEEDS AT THIS TIME.
[2018-08-17] MEDS: METOPROLOL TARTRATE 50 MG TAB PO SCH ×2 (09:11→17:16)
[2018-08-17] MEDS: AMLODIPINE BESYLATE 5 MG TAB PO SCH ×2 (09:11→17:16)
[2018-08-17] MEDS: SERTRALINE HCL 100 MG TAB PO SCH (09:11)
[2018-08-17] MEDS: TAMSULOSIN HCL 0.4 MG CAP PO SCH (09:11)
[2018-08-17] MEDS: FLUDROCORTISONE ACETATE 0.1 MG TAB PO SCH ×2 (09:11→17:15)
[2018-08-17] MEDS: AZTREONAM 1 GM/NS 50 ML 50 ML IV SCH ×2 (12:12→22:39)
[2018-08-17] MEDS: ENOXAPARIN 30 MG/0.3 ML SYR SC SCH (17:15)
[2018-08-17] MEDS: ROPINIROLE HCL 0.25 MG TAB PO SCH (22:39)
[2018-08-18] VITALS (9 sets, daily range): BP systolic 169–187; BP diastolic 82–93
[2018-08-18] MEDS: ALBUTEROL SULF 0.083% NEB SOLN 3 ML NEB NEB SCH ×6 (03:00→23:15)
[2018-08-18] MEDS: LEVOTHYROXINE SODIUM 75 MCG TAB PO SCH (05:47)
[2018-08-18 06:39] LABS: BASOPHILS % 0.8 % (0.0-1.0); EOSINOPHILS # (AUTO) 0.1 (0.0-0.4); HEMATOCRIT 28.9 % (38.2-49.6); HEMOGLOBIN 9.8 g/dL (14.0-18.0); LYMPHOCYTES # (AUTO) 0.6 (1.0-3.2); LYMPHOCYTES % 20.7 % (18.0-39.1); MEAN CORPUSCULAR HEMOGLOBIN 30.5 pg (28-32); MEAN CORPUSCULAR HGB CONC 33.9 g/dL (31-35); MONOCYTES # (AUTO) 0.2 (0.2-0.8); NEUTROPHILS # (AUTO) 1.8 (2.1-6.9); NEUTROPHILS % 66.1 % (38.7-80.0); PLATELET COUNT 179 x10e3/uL (140-360); RED BLOOD COUNT 3.21 x10e6/uL (4.3-5.7); RED CELL DISTRIBUTION WIDTH 14.8 % (11.7-14.4)
[2018-08-18 07:00] LABS: ALANINE AMINOTRANSFERASE 17 IU/L (0-55); ALBUMIN 2.3 g/dL (3.5-5.0); ALBUMIN/GLOBULIN RATIO 0.7 (0.8-2.0); ALKALINE PHOSPHATASE 65 IU/L (40-150); ANION GAP 11.8 mmol/L (8-16); BLOOD UREA NITROGEN 25 mg/dL (7-26); BUN/CREATININE RATIO 29 (6-25); CALCIUM 9.8 mg/dL (8.4-10.2); CARBON DIOXIDE 27 mmol/L (22-29); CHLORIDE 103 mmol/L (98-107); CREATININE, SERUM 0.85 mg/dL (0.72-1.25); EST GLOMERULAR FILTRATION RATE > 60 ML/MIN (60-); GLUCOSE 93 mg/dL (74-118); SODIUM 139 mmol/L (136-145)
--- NOTE | 2018-08-18 07:00 | NUR ---
RECEIVED BEDSIDE REPORT FROM NIGHT RN. PT DENIES NEEDS AT THIS TIME.
[2018-08-18 07:02] LABS: POTASSIUM 2.8 mmol/L (3.5-5.1)
[2018-08-18] MEDS: IPRATROPIUM BROMIDE 0.02% 2.5 ML NEB NEB SCH ×4 (07:20→23:15)
[2018-08-18 08:10] LABS: BAND NEUTROPHILS % (MANUAL) 2 %; EOSINOPHILS % (MANUAL) 3 % (0-7); LYMPHOCYTES % (MANUAL) 17 % (19-48); MONOCYTES % (MANUAL) 16 % (3.4-9.0); NEUTROPHILS % (MANUAL) 58 % (40-74)
[2018-08-18 08:12] LABS: PLATELET ESTIMATE ADEQUATE; PLATELET MORPHOLOGY COMMENT NORMAL; RBC MORPHOLOGY COMMENT NORMAL
[2018-08-18] MEDS: TAMSULOSIN HCL 0.4 MG CAP PO SCH (09:12)
[2018-08-18] MEDS: FLUDROCORTISONE ACETATE 0.1 MG TAB PO SCH ×2 (09:12→16:50)
[2018-08-18] MEDS: AMLODIPINE BESYLATE 5 MG TAB PO SCH ×2 (09:13→16:51)
[2018-08-18] MEDS: SERTRALINE HCL 100 MG TAB PO SCH (09:13)
[2018-08-18] MEDS: METOPROLOL TARTRATE 50 MG TAB PO SCH ×2 (09:13→16:51)
[2018-08-18] MEDS: LOSARTAN POTASSIUM 100 MG TAB PO SCH (11:23)
[2018-08-18] MEDS: POTASSIUM CHLORIDE 20 MEQ TAB CR PO SCH ×3 (11:23→14:31)
[2018-08-18] MEDS: AZTREONAM 1 GM/NS 50 ML 50 ML IV SCH ×3 (11:39→23:52)
[2018-08-18] MEDS: ENOXAPARIN 30 MG/0.3 ML SYR SC SCH (16:51)
[2018-08-18] MEDS: FENTANYL 50 MCG/HR PATCH TOP SCH (20:38)
[2018-08-18] MEDS: ROPINIROLE HCL 0.25 MG TAB PO SCH (20:38)
[2018-08-19] VITALS (8 sets, daily range): BP systolic 151–182; BP diastolic 86–102
[2018-08-19] MEDS: ALBUTEROL SULF 0.083% NEB SOLN 3 ML NEB NEB SCH ×5 (03:30→19:45)
[2018-08-19 05:52] LABS: BLOOD UREA NITROGEN 20 mg/dL (7-26); BUN/CREATININE RATIO 26 (6-25); CALCIUM 9.4 mg/dL (8.4-10.2); CARBON DIOXIDE 30 mmol/L (22-29); CHLORIDE 101 mmol/L (98-107); CREATININE, SERUM 0.78 mg/dL (0.72-1.25); EST GLOMERULAR FILTRATION RATE > 60 ML/MIN (60-); GLUCOSE 92 mg/dL (74-118); SODIUM 141 mmol/L (136-145)
[2018-08-19] MEDS: LEVOTHYROXINE SODIUM 75 MCG TAB PO SCH (06:19)
[2018-08-19] MEDS: IPRATROPIUM BROMIDE 0.02% 2.5 ML NEB NEB SCH ×3 (07:09→19:45)
[2018-08-19] MEDS: TAMSULOSIN HCL 0.4 MG CAP PO SCH (08:51)
[2018-08-19] MEDS: FLUDROCORTISONE ACETATE 0.1 MG TAB PO SCH ×2 (08:51→16:59)
[2018-08-19] MEDS: METOPROLOL TARTRATE 50 MG TAB PO SCH ×2 (08:51→16:59)
[2018-08-19] MEDS: AMLODIPINE BESYLATE 5 MG TAB PO SCH ×2 (08:51→16:59)
[2018-08-19] MEDS: SERTRALINE HCL 100 MG TAB PO SCH (08:51)
[2018-08-19] MEDS: LOSARTAN POTASSIUM 100 MG TAB PO SCH (08:51)
[2018-08-19] MEDS ORDERED: POTASSIUM CHLORIDE 20MEQ/15ML UDC NG PRN (09:15)
[2018-08-19] MEDS: AZTREONAM 1 GM/NS 50 ML 50 ML IV SCH (11:45)
--- NOTE | 2018-08-19 15:08 | NUR ---
Nutrition Follow-up Note RD Recommendation(s) for Physician: The patient meets criteria for unspecified SEVERE protein-calorie malnutrition. - Rec continuous TF with Glucerna 1.5, advance as tolerated, to goal rate of 95mL/hr for 12hr (1710kcal, 94g protein, 865mL water) from 9am to 9pm will meet 75% of his est needs - Water flushes per MD - Check labs, GI tolerance, weight daily Plan of Care: RD following, monitoring for tolerance and adequacy, TF rec Nutrition reason for involvement: Follow up RD Assessment 08/19 - Pt was discussed during AM rounds. Per SARBJIT Sheikh, pt only wanted to be fed from 9am 9pm. TF was well tolerated at 70mL/hr with 150mL water flushes q 6hr. Visited pt in the room. No other complains. Communicated TF rec with SARBJIT Sheikh. Will continue to monitor and follow. 08/15 68yo M, who was admitted for aspiration PNA. Pt was well known to me from his previous admissions. Pt with history of tongue cancer, requiring EN through PEG. RN noted that pt does not get feeding during night time so he can sleep comfortably. Looking at his previous admissions, pt has probably lost ~10-15lbs in the last 3 months. Visited pt in the room. Pt stated that he usually get all 7 feedings (Osmolite 1.5 - 2485kcal, 104g protein, 1267mL water) during daytime. His last feeding is usually before 9pm. He has been tolerating TF well without any issue. Communicated tube feeding adjustment that need to be made in order to meet his protein and calories needs; pt was agreeable with plan. Notified RN. Will continue to monitor and follow. Principal Problems/Diagnoses: 1. Aspiration pneumonia. 2. Chronic obstructive pulmonary disease exacerbation. 3. Acute on chronic renal failure stage 3. PMH: 1. Tongue cancer status post radiation. 2. Chronic PEG tube and difficulty swallowing. 3. COPD with periods of exacerbation. 4. Repeated aspiration pneumonia. 5. Repeated cellulitis around the PEG tube. 6. Hypertension. GI: abdomen soft, non-tender, flatus present Skin: no pressure wound noted Labs: (08/19) K 3.0 L (08/15) Na 132 L Meds: KCl, synthroid Ht: 70in Wt: 119.19lb 08/15 (135lb 05/2018) BMI: 17.1kg/m2 IBW: 166lb +/- 10% Malnutrition Evaluation (08/15/18) The patient meets criteria for unspecified SEVERE protein-calorie malnutrition. Energy intake: <75% of estimated energy requirements for >3 months Weight loss: >7.5% in 3 months (Acute) Fat loss: Severe clavicle protrusion Muscle loss: Severe temporal depression Supporting Evidence: Fluid accumulation: None Functional Status: no changes Nutrition Prescription (Diet Order): Glucerna 1.5 Estimated Nutritional Needs: Calories: 2250 2625kcal (30-35kcal/kg/d) Weight used: IBW Protein: 113 150g (1.5-2g/kg/d) Weight used: IBW Diet Adequacy: Not meeting calorie needs, Not meeting protein needs Diet Education Needs Assessment: 08/15: Diet education indicated and patient agreeable. Spoke with pt regarding the tube feeding adjustment we need to make in order to meet his est protein and calorie needs. Pt was agreeable with plan. Nutrition Care Level: low Nutrition Diagnosis: none at this time. Goal: Patient will meet 75-100% of estimated needs by follow up Progress: Progressing Interventions: Composition, Rate, Route Monitoring/Evaluation: Total energy intake, Total protein intake, Formula/Solution, Weight change Signed: Conchis Arango MS, RD, LD
--- NOTE | 2018-08-19 15:37 | NUR ---
IMM letter delivered and explained to pt. He verbalized understanding. Signed copy placed in chart. Copy given to pt.
[2018-08-19] MEDS: ENOXAPARIN 30 MG/0.3 ML SYR SC SCH (16:59)
[2018-08-19] MEDS ORDERED: POTASSIUM CHLORIDE 20 MEQ TAB CR PO STA (19:29)
[2018-08-19] MEDS ORDERED: POTASSIUM CHLORIDE 20MEQ/15ML UDC PEG ONE (20:00)
--- NOTE | 2018-08-19 20:00 | NUR ---
THE PATIENT IS AAOX3 REPORTS NO PAIN AT THIS TIME. LAYING IN BED IN MARI'S POSITION. NC @ 3L , NO SOB NOTED. LEFT IV PATENT. PEG TUBE PLACEMENT VERIFIED. SKIN PINK, NO COMPLICATIONS NOTED. MICHELL VALVE IN PLACE FOR ENTERAL FEEDING/MEDICATION. GLUCERNA 1.5 RUNNING AT 80 ML/HR WILL TURN OFF AT 2100. ABDOMEN SOFT AND NON DISTENDED. WILL CONTINUE MONITORING.
[2018-08-19] MEDS: ROPINIROLE HCL 0.25 MG TAB PO SCH (20:53)
[2018-08-20] VITALS (7 sets, daily range): BP systolic 123–185; BP diastolic 71–97
--- NOTE | 2018-08-20 00:57 | Progress Note ---
DATE: 08/19/2018 Internal Medicine Progress Note SUBJECTIVE: The patient is doing better. OBJECTIVE: VITAL SIGNS: Blood pressure 175/90, temperature 37.5, heart rate 96 per minute, respiratory rate 18 per minute, and oxygen saturation 91%. HEART: Showed regular rhythm. Normal S1 and S2 sound. LUNGS: Clear bilaterally. ABDOMEN: Soft. EXTREMITIES: Show no evidence of cyanosis or trauma. LABORATORY DATA: On BMP; sodium 141, potassium 3.0, chloride 101, CO2 of 30, BUN 20, creatinine 0.78, glucose 92. On CBC; white blood count 2.66, hemoglobin 9.8, hematocrit 28.9, and platelet count 179,000. PT 12.8, INR 0.82, PTT 28.6. AST 12, ALT 17, total bilirubin 0.6, alkaline phosphatase 65. FINAL IMPRESSION: 1. Aspiration pneumonia. 2. Chronic obstructive pulmonary disease. 3. Uncontrolled hypertension. 4. Dysphagia. 5. Hypokalemia. 6. Anemia of chronic disease. 7. Moderate protein-calorie malnutrition. PLAN OF TREATMENT: Continue albuterol q.4 hours, Atrovent q.6 hours, aztreonam 1 g IV twice a day, Flomax 0.4 mg daily, fludrocortisone 0.1 mg twice a day, metoprolol 50 mg twice a day, Requip 0.5 mg at bedtime, amlodipine 5 mg twice a day, losartan 50 mg daily, which is going to be discontinued. We are going to start him on Micardis 80 mg daily. We are going to start levothyroxine 150 mcg daily, Tylenol 650 mg q.4 hours as needed for pain or fever, potassium chloride 40 mEq x1, Lovenox 30 mg subcu times daily for DVT prophylaxis. Continue Zoloft 100 mg daily and fentanyl patch q.48 hours. MD STEPHANIE Barrientos/ELIAN /[id number]
[2018-08-20] MEDS: HYDRALAZINE HCL 20 MG/ML VIAL IV PRN ×2 (01:10→06:51)
[2018-08-20] MEDS: ALBUTEROL SULF 0.083% NEB SOLN 3 ML NEB NEB SCH ×7 (03:00→23:20)
[2018-08-20 05:23] LABS: ANION GAP 12.4 mmol/L (8-16); BLOOD UREA NITROGEN 21 mg/dL (7-26); BUN/CREATININE RATIO 30 (6-25); CALCIUM 9.4 mg/dL (8.4-10.2); CARBON DIOXIDE 32 mmol/L (22-29); CHLORIDE 101 mmol/L (98-107); CREATININE, SERUM 0.71 mg/dL (0.72-1.25); EST GLOMERULAR FILTRATION RATE > 60 ML/MIN (60-); GLUCOSE 89 mg/dL (74-118); POTASSIUM 3.4 mmol/L (3.5-5.1); SODIUM 142 mmol/L (136-145)
[2018-08-20] MEDS: LEVOTHYROXINE SODIUM 75 MCG TAB PO SCH (06:25)
--- NOTE | 2018-08-20 06:25 | NUR ---
The patient is laying in bed on his left side. Patient refused to get his feeds started now and stated he will get them started later on this morning. Will notify oncoming nurse. HOB slightly elevated, bed low wheels are locked and call light is within reach.
[2018-08-20] MEDS: IPRATROPIUM BROMIDE 0.02% 2.5 ML NEB NEB SCH ×4 (06:45→19:55)
[2018-08-20] MEDS: METOPROLOL TARTRATE 50 MG TAB PO SCH ×2 (09:05→17:30)
[2018-08-20] MEDS: FLUDROCORTISONE ACETATE 0.1 MG TAB PO SCH ×2 (09:05→17:30)
[2018-08-20] MEDS: AMLODIPINE BESYLATE 5 MG TAB PO SCH ×2 (09:05→17:30)
[2018-08-20] MEDS: TAMSULOSIN HCL 0.4 MG CAP PO SCH (09:05)
[2018-08-20] MEDS: TELMISARTAN 40 MG TAB PO SCH (09:05)
[2018-08-20] MEDS: SERTRALINE HCL 100 MG TAB PO SCH (09:06)
[2018-08-20] MEDS: AZTREONAM 1 GM/NS 50 ML 50 ML IV SCH ×2 (12:00→23:02)
[2018-08-20] MEDS ORDERED: POTASSIUM CHLORIDE 20 MEQ TAB CR PO ONE (16:11)
--- NOTE | 2018-08-20 17:01 | Discharge Summary ---
HOSPITAL COURSE: A 68 years old male with past medical history positive for COPD, laryngeal CA, dysphagia on a PEG tube feeding, hypertension, who came to the hospital because of cough, phlegm, and fever. He was found to have aspiration pneumonia. He was started on IV antibiotics. The patient has been doing better. Right now temperature is 97.5. Dr. Valentine ordered oxygen because the patient has hypoxemia with an oxygen saturation of 86% on room air, so he needs oxygen at home. We will replace the potassium. We are going to recheck the potassium and magnesium level tomorrow. The patient going to have a chest x-ray tomorrow before going home. Dr. Bowen will be covering for me starting tomorrow, so I am going to leave a prescription already in the chart in case he will call tomorrow. PHYSICAL EXAMINATION: VITAL SIGNS: Blood pressure 124/71, temperature 97.5, heart rate 78 per minute, respiratory rate 18 per minute, oxygen saturation 97%. HEART: Regular rhythm. Normal S1, S2 sound. LUNGS: Decreased breath sounds bilaterally. ABDOMEN: Soft. He has a PEG tube in place. LABORATORY DATA: On BMP; sodium 142, potassium 3.4, chloride 101, CO2 32, BUN 21, creatinine 0.71, glucose 89. On the CBC; white blood count 2.66, hemoglobin 9.8, hematocrit 28.9, platelet count a 179,000. PT 12.8, INR 0.92, PTT 28.6. AST 12, ALT 17, total bilirubin 0.6, alkaline phosphatase 65. FINAL IMPRESSION: 1. Aspiration pneumonia. 2. Chronic obstructive pulmonary disease exacerbation. 3. Uncontrolled hypertension. 4. Dysphagia. 5. Laryngeal carcinoma. 6. Hypokalemia. 7. Orthostatic hypotension. PLAN OF TREATMENT: Continue albuterol and Atrovent q.6 hours as needed for shortness of breath. We are going to prescribe him: 1. Augmentin 875 mg twice a day for 10 days. 2. Continue Flomax 0.4 mg daily. 3. Fludrocortisone 0.1 mg twice a day. 4. Metoprolol 50 mg twice a day. 5. Fentanyl patch q.48 hours. 6. Requip 0.5 mg at bedtime. 7. Amlodipine 5 mg twice a day. 8. Potassium chloride 20 mEq one as needed. 9. He is going to get 40 mEq x1 today. 10. Levothyroxine 150 mcg daily. 11. Micardis 80 mg daily. 12. Hydralazine 10 mg IV q.6 hours as needed, but it is going to discontinued upon discharge. 13. Continue Zoloft [address] Bowen will be covering for me for tomorrow. If the patient is doing better, he might be able to go home tomorrow, follow with me in 2 weeks. MD STEPHANIE Barrientos/ELIAN /[id number]
[2018-08-20] MEDS: ENOXAPARIN 30 MG/0.3 ML SYR SC SCH (17:30)
--- NOTE | 2018-08-20 19:15 | NUR ---
Pt visited in room during nursing rounds. Patient alert and oriented x3. No distress or discomfort noted. PEG (LLQ) in place and received feeding (Glucerna 1.5 pablo at 90 ml/hr). As per report from dayshift RN, feeding will be stopped around 2100 tonight per pt request and that MD (Dr. Hoskins) is aware. Pt ambulatory in room prn. Call price within reach. Will monitor closely.
[2018-08-20] MEDS: FENTANYL 50 MCG/HR PATCH TOP SCH (21:00)
--- NOTE | 2018-08-20 21:00 | NUR ---
PEG feeding (Glucerna) stopped as per pt request. No residual noted.
[2018-08-20] MEDS: ROPINIROLE HCL 0.25 MG TAB PO SCH (21:20)
[2018-08-21] VITALS (9 sets, daily range): BP systolic 108–176; BP diastolic 57–88
[2018-08-21] MEDS: ALBUTEROL SULF 0.083% NEB SOLN 3 ML NEB NEB SCH ×6 (00:39→19:27)
[2018-08-21] MEDS: IPRATROPIUM BROMIDE 0.02% 2.5 ML NEB NEB SCH ×4 (03:40→19:27)
[2018-08-21 05:48] LABS: ANION GAP 11.8 mmol/L (8-16); BLOOD UREA NITROGEN 24 mg/dL (7-26); BUN/CREATININE RATIO 34 (6-25); CALCIUM 9.5 mg/dL (8.4-10.2); CARBON DIOXIDE 33 mmol/L (22-29); CHLORIDE 103 mmol/L (98-107); CREATININE, SERUM 0.71 mg/dL (0.72-1.25); EST GLOMERULAR FILTRATION RATE > 60 ML/MIN (60-); GLUCOSE 94 mg/dL (74-118); POTASSIUM 3.8 mmol/L (3.5-5.1); SODIUM 144 mmol/L (136-145)
--- NOTE | 2018-08-21 06:17 | Diagnostic Imaging Report ---
A single frontal view of the chest. HISTORY: Follow-up pneumonia, multifocal aspiration COMPARISON: Chest radiograph August 14, 2018 DISCUSSION: Portable technique, limits sensitivity of the exam. Tubes/Lines: None Lungs and pleura: The right upper lung interstitial and airspace opacity has improved. The right infrahilar opacity is similar. Interval development of a left mid to lower lung confluent interstitial and airspace opacity. Heart and mediastinum: The cardiomediastinal silhouette appears unremarkable. Bones and soft tissues: Appear unremarkable, given this limited exam. IMPRESSION: Waxing and waning bilateral interstitial and airspace opacities, favors recurrent aspiration; however, superimposed multifocal pneumonia remains a consideration in the appropriate setting. Signed by: Dr. Shane Casillas D.O., M.M.M. on 08/21/2018 6:14 AM
[2018-08-21] MEDS: LEVOTHYROXINE SODIUM 75 MCG TAB PO SCH (06:27)
--- NOTE | 2018-08-21 06:28 | NUR ---
Pt ambulated outside room and told nurse he was going to visit his in unit MedSurg1 and that he will be right back.
--- NOTE | 2018-08-21 07:04 | NUR ---
RCD PT AT BED PT IS ALERT AND ORIENTED PT RESTING ON BED NO SIGNS OF ANY DISTRESS NOTED BED LOW AND LOCKED CALL LIGHT IN REACH
--- NOTE | 2018-08-21 07:10 | NUR ---
NIGHT DUTY TECH DOCUMENTED FEVER 102 THIS IS AN ERROR
[2018-08-21] MEDS: SERTRALINE HCL 100 MG TAB PO SCH (09:00)
[2018-08-21] MEDS: TELMISARTAN 40 MG TAB PO SCH (09:00)
[2018-08-21] MEDS: TAMSULOSIN HCL 0.4 MG CAP PO SCH (09:00)
[2018-08-21] MEDS: METOPROLOL TARTRATE 50 MG TAB PO SCH ×2 (09:00→17:00)
[2018-08-21] MEDS: AMLODIPINE BESYLATE 5 MG TAB PO SCH ×2 (09:00→17:00)
[2018-08-21] MEDS: FLUDROCORTISONE ACETATE 0.1 MG TAB PO SCH ×2 (09:00→17:00)
--- NOTE | 2018-08-21 09:00 | NUR ---
PT REFUSED TO START TUBE FEEDING
--- NOTE | 2018-08-21 09:50 | NUR ---
CM SPOKE TO PATIENT AT BEDSIDE TO DISCUSS DISCHARGE PLAN. PATIENT WITH ORDERS FORHOME OXYGEN. PATIENT INFORMED THAT HE QUALIFIES FOR HOME O2. PATIENT GIVEN CHOICES AND CHOSE TO USE INSURANCE, VENDORS: [employer] TO SUPPLY HOME OXYGEN CLINICAL SENT TO [employer] [facility] . PENDING DELIVERY OF OXYGEN TO BEDSIDE FOR DISCHARGE. HOME OXYGEN COMPANY: [employer] (P) [phone] (F) [phone] LIAISON: ALEXANDER
--- NOTE | 2018-08-21 09:51 | NUR ---
DISCHARGE DISPOSITION PATIENT DISCHARGING HOME WITH HOME OXYGEN FROM THE FOLLOWING HOME OXYGEN COMPANY: [employer] (P) [phone] (F) [phone] LIAISON: ALEXANDER
[2018-08-21] MEDS: AZTREONAM 1 GM/NS 50 ML 50 ML IV SCH ×2 (11:15→23:04)
--- NOTE | 2018-08-21 11:15 | Progress Note ---
DATE: 08/21/2018 I am covering for Dr. Hoskins. SUBJECTIVE: Mr. Carroll is still in the hospital. He is 68-year-old. He has history of laryngeal cancer, dysphagia on PEG feedings, COPD, hypertension, came to the hospital with cough, fever, and phlegm. He was found to have pneumonia. He was started on IV antibiotics. At the present time, oxygen was low, so we are awaiting for home O2. Once we have that at home, he is going to be discharged probably today. PHYSICAL EXAMINATION: GENERAL: He is awake and alert. He is waiting to go home. VITAL SIGNS: Temperature is 97.6, blood pressure 108/68. HEART: Regular rate. LUNGS: Poor inspiratory effort. ABDOMEN: Soft. LABORATORY DATA: On the blood work, white count 2.66, hemoglobin 9.8, hematocrit 28.9. Potassium 3.8, creatinine is 0.71, glucose is 94. The sputum Gram stain showed Klebsiella pneumoniae. ASSESSMENT: 1. Aspiration pneumonia. 2. Chronic obstructive pulmonary disease exacerbation. 3. Hypertension. 4. Laryngeal carcinoma. 5. Dysphagia, on PEG feedings. 6. Orthostatic hypotension. PLAN: At the present time is we are awaiting for telephonic nurse case manager to get the oxygen for the patient at home. Continue Augmentin 875 p.o. twice a day for 10 more days. Continue all the other medications. Follow up with Dr. Hoskins as directed by him. Call me or come back to the emergency room if any recurrent problem. All this was discussed with the patient. All questions were answered to satisfaction. MD LYDIA Hong/ELIAN /[id number]
--- NOTE | 2018-08-21 11:30 | NUR ---
IV INFILTRATED PT REFUSED TO START NEW IV
--- NOTE | 2018-08-21 14:08 | NUR ---
IMM EXPLAINED TO PT, SIGNED BY PT AND PLACED IN CHART COPY TO PT IN CARE TRANSITIONS FOLDER
[2018-08-21] MEDS ORDERED: AUGMENTIN 875-1 EACH PO (14:55)
[2018-08-21] MEDS ORDERED: METOPROLOL SUCC50 MG PO (14:56)
[2018-08-21] MEDS ORDERED: MICARDIS40 MG PO (14:59)
--- NOTE | 2018-08-21 15:30 | NUR ---
SIX SIGMA BLACK TRAINER SAID OXYGEN COMING ONLY ON TOMORROW HE IS WAITING FOR HOME O2 ,EXPLAINED TO THE PT HE SAID I WANTED GO HOME NOTIFIED THE CHARGE NURSE
--- NOTE | 2018-08-21 15:48 | NUR ---
BELA SPOKE TO DR. HENDRICKSON AND ALEXANDER WITH [facility]. DR. HENDRICKSON STATES HE WILL WRITE PROGRESS NOTE AND RX FOR HOME OXYGEN REQUESTED UNDER [facility] GUIDELINES TOMORROW. ONCE SCRIPT IS RECEIVED AND OXYGEN DELIVERED TO BEDSIDE PATIENT TO DISCHARGE.
--- NOTE | 2018-08-21 16:35 | NUR ---
PT GOING DOWN STAIRS WITHOUT TELLING CALL THE SECURITY NOTIFIED CHARGE NURSE AND RAILROAD MECHANIC ,PT SITTING ON THE FRONT LOBBY WITH SECURITY
[2018-08-21] MEDS: ENOXAPARIN 30 MG/0.3 ML SYR SC SCH (17:00)
--- NOTE | 2018-08-21 17:00 | NUR ---
PT CAME BACK TO THE ROOM
--- NOTE | 2018-08-21 17:30 | NUR ---
PAGED DR SR TO NOTIFY THE PT IS NOT TAKING ANYTHING
--- NOTE | 2018-08-21 18:42 | NUR ---
PT RESTING ON BED BED SIDE REPORT GIVEN TO ONCOMING NURSE
--- NOTE | 2018-08-21 20:45 | NUR ---
SPOKE WITH [employer] WALL [employer]ING MACHINE HELPER TO UPDATE ABOUT PATIENTS REFUSAL FOR IV ACCESS AND FEEDING TUBE.
[2018-08-21] MEDS: ROPINIROLE HCL 0.25 MG TAB PO SCH (21:00)
--- NOTE | 2018-08-21 21:07 | NUR ---
PATIENT REFUSED IV ACCESS AND TUBE FEEDING, NO SIGNS OF DISTRESS NOTED. PATIENT'S BLOOD PRESSURE READ AT 173/92 AND PATIENT VOICED THAT IT WAS NOT THAT HIGH AND REFUSED BLOOD PRESSURE MEDICATION. PATIENT DID RECEIVE REQUIP MEDICATION THROUGH FEEDING TUBE. BED IS IN LOWEST POSITION AND LOCKED, CALL LIGHT WITHIN EASY REACH, WILL CONTINUE TO MONITOR.
[2018-08-22] VITALS: BP 159/84
[2018-08-22] MEDS: IPRATROPIUM BROMIDE 0.02% 2.5 ML NEB NEB SCH ×2 (00:39→07:00)
--- NOTE | 2018-08-22 01:39 | NUR ---
PATIENT RESTING IN BED BOTH EYES CLOSED, NO DISTRESS NOTED. NASAL CANNULA INTACT ON 4 LITERS, BED IN LOWEST POSITION AND LOCKED. BOTH SIDE RAILS ARE UP, CALL LIGHT WITHIN REACH, WILL CONTINUE TO MONITOR.
[2018-08-22] MEDS: ALBUTEROL SULF 0.083% NEB SOLN 3 ML NEB NEB SCH ×2 (03:00→07:00)
[2018-08-22 04:00] VITALS: BP 132/81
[2018-08-22] MEDS: LEVOTHYROXINE SODIUM 75 MCG TAB PO SCH (05:59)
--- NOTE | 2018-08-22 06:07 | NUR ---
PATIENT VOICED THAT HE DOES NOT KNOW WHY HE DID NOT GET HIS GLUCERNA. PATIENT HAD REFUSED EARLIER THAT NIGHT AFTER CONFIRMING WITH HIM. ASSURED PATIENT THAT THERE WAS A MISUNDERSTANDING AND THAT I CHECKED ON HIM ON MULTIPLE OCCASIONS AND THE CALL LIGHT WAS WITHIN REACH. ASKED PATIENT IF HE WOULD LIKE TO START HIS GLUCERNA NOW, AND PATIENT REFUSED STATING THAT HE JUST WANTS TO GET OUT OF HERE. SYNTHROID MEDICATION WAS GIVEN VIA FEEDING TUBE. WILL CONTINUE TO MONITOR THE SITUATION.
--- NOTE | 2018-08-22 07:00 | NUR ---
RCD PT AT BED PT IS ALERT AND ORIENTED PT RESTING ON BED NO IV ACCESS MD AWARE ABOUT IT BED LOW AND LOCKED CALL LIGHT IN REACH
[2018-08-22 08:04] VITALS: BP 165/93
[2018-08-22] MEDS: FLUDROCORTISONE ACETATE 0.1 MG TAB PO SCH (09:00)
[2018-08-22] MEDS: METOPROLOL TARTRATE 50 MG TAB PO SCH (09:00)
[2018-08-22] MEDS: TELMISARTAN 40 MG TAB PO SCH (09:00)
[2018-08-22] MEDS: TAMSULOSIN HCL 0.4 MG CAP PO SCH (09:00)
[2018-08-22] MEDS: SERTRALINE HCL 100 MG TAB PO SCH (09:00)
[2018-08-22] MEDS: AMLODIPINE BESYLATE 5 MG TAB PO SCH (09:00)
[2018-08-22 09:39] VITALS: BP 165/93
[2018-08-22 10:07] LABS: BASOPHILS # (AUTO) 0.1 (0.0-0.1); BASOPHILS % 0.8 % (0.0-1.0); EOSINOPHILS # (AUTO) 0.1 (0.0-0.4); EOSINOPHILS % 1.2 % (0.0-6.0); HEMATOCRIT 32.3 % (38.2-49.6); HEMOGLOBIN 10.4 g/dL (14.0-18.0); LYMPHOCYTES # (AUTO) 0.6 (1.0-3.2); LYMPHOCYTES % 8.6 % (18.0-39.1); MEAN CORPUSCULAR HEMOGLOBIN 30.1 pg (28-32); MEAN CORPUSCULAR HGB CONC 32.2 g/dL (31-35); MEAN CORPUSCULAR VOLUME 93.4 fL (81-99); MONOCYTES # (AUTO) 0.3 (0.2-0.8); MONOCYTES % 3.6 % (4.4-11.3); NEUTROPHILS # (AUTO) 6.3 (2.1-6.9); NEUTROPHILS % 84.2 % (38.7-80.0); PLATELET COUNT 296 x10e3/uL (140-360); RED BLOOD COUNT 3.46 x10e6/uL (4.3-5.7); RED CELL DISTRIBUTION WIDTH 14.2 % (11.7-14.4)
[2018-08-22 10:14] LABS: ANION GAP 13.8 mmol/L (8-16); BLOOD UREA NITROGEN 29 mg/dL (7-26); BUN/CREATININE RATIO 39 (6-25); CALCIUM 9.4 mg/dL (8.4-10.2); CARBON DIOXIDE 31 mmol/L (22-29); CHLORIDE 100 mmol/L (98-107); CREATININE, SERUM 0.74 mg/dL (0.72-1.25); EST GLOMERULAR FILTRATION RATE > 60 ML/MIN (60-); GLUCOSE 120 mg/dL (74-118); POTASSIUM 3.8 mmol/L (3.5-5.1); SODIUM 141 mmol/L (136-145)
--- NOTE | 2018-08-22 11:00 | NUR ---
OXYGEN CYLINDER SUPPLIED AND TEACHING GIVEN BY THE SUPPLIER HE SAID HE UNDERSTOOD
--- NOTE | 2018-08-22 11:21 | Discharge Summary ---
I am covering for Dr. Hoskins. SUBJECTIVE: Mr. Carroll is a 68-year-old man with history of laryngeal cancer, dysphagia on PEG feedings, COPD, hypertension, came to the hospital with cough, fever, and phlegm. He was on IV antibiotics. At the present time, he is ready to go home, the only thing is we are awaiting for home oxygen that probably he will get today, so if that is the case, he is going to be discharged home today. PHYSICAL EXAMINATION: GENERAL: He is awake and alert. A little upset because he has not get the oxygen. VITAL SIGNS: Temperature is 97.8, blood pressure 165/93. HEART: Regular rate. LUNGS: Poor inspiratory effort. ABDOMEN: Soft LABORATORY DATA: White count 2.66, hemoglobin 9.8, hematocrit 28.9. Potassium 3.8, creatinine 0.71, and glucose 94. ASSESSMENT AND PLAN: 1. Aspiration pneumonia. 2. Chronic obstructive pulmonary disease exacerbation. 3. Hypertension. 4. Laryngeal carcinoma. 5. Dysphagia, on PEG feedings. 6. Orthostatic hypotension. PLAN: The plan is to discharge the patient home. Once he gets the oxygen there, continue Augmentin p.o. twice a day for 10 more days. Continue other home medications. Follow up with Dr. Hoskins in 2 weeks. All this was discussed with the patient. All questions were answered to satisfaction. Please see home medication reconciliation list. MD LYDIA Hong/ELIAN /[phone]
--- NOTE | 2018-08-22 11:27 | NUR ---
PATIENT WENT HOME IN SAFE CONDITION WITH HIS DAUGHTER
== END 2018-08-22 11:27 | disposition home or self-care (01) | DRG 871 ==
LOC: ER 11:21 → ERHOLD 16:31 → MED/SURG2 20:10
PROVIDERS: ADMIT Internal Medicine; ATTEND Internal Medicine
PROC: 0DH63UZ Insertion of Feeding Device into Stomach, Percutaneous Approach (ICD-10-PCS; principal; 2018-08-10)
DX: A41.9 Sepsis, unspecified organism (principal); J69.0 Pneumonitis due to inhalation of food and vomit; N17.0 Acute kidney failure with tubular necrosis; J44.1 Chronic obstructive pulmonary disease with (acute) exacerbation; E44.0 Moderate protein-calorie malnutrition; Z68.1 Body mass index [BMI] 19.9 or less, adult; J96.11 Chronic respiratory failure with hypoxia; E86.0 Dehydration; I12.9 Hypertensive chronic kidney disease with stage 1 through stage 4 chronic kidney disease, or unspecified chronic kidney disease; Z93.1 Gastrostomy status; Z85.810 Personal history of malignant neoplasm of tongue; R13.10 Dysphagia, unspecified; E87.6 Hypokalemia; I95.1 Orthostatic hypotension; C32.9 Malignant neoplasm of larynx, unspecified; F32.9 Major depressive disorder, single episode, unspecified; E03.9 Hypothyroidism, unspecified; G25.81 Restless legs syndrome; R09.02 Hypoxemia; D63.8 Anemia in other chronic diseases classified elsewhere; G89.4 Chronic pain syndrome; N18.3 Chronic kidney disease, stage 3 (moderate); B96.1 Klebsiella pneumoniae [K. pneumoniae] as the cause of diseases classified elsewhere
CPT/HCPCS: 36415; 43246; 71045; 80048; 80053; 81001; 82550; 82553; 82948; 83605; 83735; 84443; 84484; 85025; 85610; 85730; 87040; 87070; 87086; 87186; 87205; 93005; 93306; 94640; 97139; 99283; 99284; G0378; J0360; J1650; J2001; J2250; J2543; J3010; J7030; J7042; J7121; J7799

== ENCOUNTER 2018-10-18 21:24 | Inpatient (IN) | payer MEDICARE, OTHER ==
[~2018-10-18] VITALS: Ht 177.8 cm; Wt 65.8 kg
[~2018-10-18 21:24] MED LIST changes: +AUGMENTIN 875-1 EACH PO; +LASIX20 MG PEG; +METOPROLOL SUCC50 MG PO; +MICARDIS40 MG PO; +PREDNISONE20 MG PO
[2018-10-18] MEDS ORDERED: ALBUTEROL SULF 0.083% NEB SOLN 3 ML NEB NEB STA (22:08)
[2018-10-18] MEDS ORDERED: METHYLPREDNISOLONE SOD SUCC 125 MG/2ML VIAL IV ONE (22:15)
[2018-10-18] MEDS ORDERED: IPRATROPIUM BROMIDE 0.02% 2.5 ML NEB NEB ONE (22:15)
[2018-10-18] MEDS ORDERED: SODIUM CHLORIDE 0.9% 1000ML 1,000 ML IV SCH (22:30)
[2018-10-18 22:32] LABS: BASOPHILS % 0.3 % (0.0-1.0); EOSINOPHILS % 0.6 % (0.0-6.0); HEMATOCRIT 27.9 % (38.2-49.6); HEMOGLOBIN 9.1 g/dL (14.0-18.0); LYMPHOCYTES # (AUTO) 0.7 (1.0-3.2); LYMPHOCYTES % 11.3 % (18.0-39.1); MEAN CORPUSCULAR HEMOGLOBIN 30.5 pg (28-32); MEAN CORPUSCULAR HGB CONC 32.6 g/dL (31-35); MEAN CORPUSCULAR VOLUME 93.6 fL (81-99); MONOCYTES # (AUTO) 0.7 (0.2-0.8); MONOCYTES % 10.9 % (4.4-11.3); NEUTROPHILS # (AUTO) 4.9 (2.1-6.9); NEUTROPHILS % 76.4 % (38.7-80.0); PLATELET COUNT 178 x10e3/uL (140-360); RED BLOOD COUNT 2.98 x10e6/uL (4.3-5.7); RED CELL DISTRIBUTION WIDTH 14.6 % (11.7-14.4)
[2018-10-18 22:49] LABS: ALANINE AMINOTRANSFERASE 10 IU/L (0-55); ALBUMIN 2.5 g/dL (3.5-5.0); ALKALINE PHOSPHATASE 46 IU/L (40-150); ANION GAP 9.8 mmol/L (8-16); BLOOD UREA NITROGEN 38 mg/dL (7-26); BUN/CREATININE RATIO 32 (6-25); CARBON DIOXIDE 27 mmol/L (22-29); CHLORIDE 98 mmol/L (98-107); CREATINE KINASE 12 IU/L (30-200); EST GLOMERULAR FILTRATION RATE > 60 ML/MIN (60-); GLUCOSE 95 mg/dL (74-118); POTASSIUM 3.8 mmol/L (3.5-5.1); SODIUM 131 mmol/L (136-145)
[2018-10-18 22:54] LABS: CALCIUM 7.9 mg/dL (8.4-10.2)
--- NOTE | 2018-10-18 23:46 | Diagnostic Imaging Report ---
History:Fall, aspiration pneumonia Comparison studies:None Technique: Axial images were obtained from the brain and cervical spine. Coronal and sagittal images reconstructed from the axial data. Intravenous contrast: None Dose modulation, iterative reconstruction, and/or weight based adjustment of the mA/kV was utilized to reduce the radiation dose to as low as reasonably achievable. Findings: Head CT: Scalp/skull: No abnormalities. No fractures, blastic or lytic lesions. Brain sulci: Mildly prominent. Ventricles: Mild compensatory dilatation. No hydrocephalus. Parenchyma: Scattered and hazy hypodensities in the supratentorial white matter are mild small vessel ischemic changes. No masses, hemorrhage, acute or chronic cortical vascular insults. Sellar/suprasellar region: No abnormalities. Craniocervical junction: Patent foramen magnum. No Chiari one malformation. Incidental findings: Atherosclerotic calcifications in the carotid siphons . . Cervical spine CT: Fractures: None. Soft tissues: No gross paraspinal abnormalities. Atherosclerotic calcifications of the carotid bulbs. Atlantoaxial articulation: Intact. Alignment: Normal lordosis. No scoliosis. Cervicomedullary junction: No abnormalities. Patent foramen magnum. Vertebrae: No infection or neoplasm. Degenerative changes: Degenerative changes at the atlantoaxial joint without acute abnormality. Uncinate processes and facet hypertrophy results in moderate left foraminal narrowing at C2-3,. No other high-grade foraminal narrowing. No high-grade canal stenosis Incidental findings: Scarring at both lung apices. Impression: Head CT: 1. No acute intracranial abnormality. Cervical spine CT: 1. No acute abnormalities. 2. Cannot exclude ligament, spinal cord and or vascular abnormalities on the basis of this examination. Signed by: DR Gianni Phelps M.D. on 10/18/2018 11:43 PM
--- NOTE | 2018-10-18 23:52 | Diagnostic Imaging Report ---
EXAMINATION: CHEST SINGLE (PORTABLE) INDICATION: Fall, aspiration COMPARISON: Chest radiograph 08/21/2018 FINDINGS: AP view TUBES and LINES: None. LUNGS: Lung volumes within normal limits. Hazy airspace opacities in bilateral lower lungs.. PLEURA: No pleural effusion or pneumothorax. HEART AND MEDIASTINUM: The cardiomediastinal silhouette is unremarkable. BONES AND SOFT TISSUES: No acute osseous lesion. Soft tissues are unremarkable. Degenerative changes in the spine. UPPER ABDOMEN: No free air under the diaphragm. IMPRESSION: Hazy airspace opacities in the bilateral lower lungs can be seen in setting of aspiration pneumonia. Signed by: Keny Orourke DO on 10/18/2018 11:48 PM
[2018-10-19] VITALS (9 sets, daily range): BP systolic 121–153; BP diastolic 63–79
[2018-10-19] MEDS: PIPER-TAZ 3.375 GM 50 ML IV SCH ×5 (00:20→23:54)
[2018-10-19] MEDS ORDERED: ACETAMINOPHEN 1000 MG/100 ML IV PRN (00:45)
[2018-10-19 02:54] LABS: BILIRUBIN,URINE NEGATIVE (NEGATIVE); CLARITY,URINE CLEAR (CLEAR); COLOR,URINE YELLOW (YELLOW); KETONES,URINE NEGATIVE (NEGATIVE); LEUKOCYTE ESTERASE ,URINE NEGATIVE (NEGATIVE); NITRITE,URINE NEGATIVE (NEGATIVE); PROTEIN,URINE DIPSTICK NEGATIVE (NEGATIVE); URINE UROBILINOGEN 0.2 mg/dL (0.2 - 1)
[2018-10-19] MEDS: SODIUM CHLORIDE 0.9% 1000ML 1,000 ML IV SCH ×3 (02:57→17:43)
[2018-10-19 03:15] LABS: BACTERIA,URINE FEW /HPF; EPITHELIAL CELLS,URINE RARE /LPF; WBC,URINE (MAN) 0-5 /HPF (0-5)
[2018-10-19] MEDS ORDERED: LEVOTHYROXINE150 MCG PEG (03:55)
[2018-10-19] MEDS ORDERED: ROPINIROLE HCL0.5 MG PEG (03:55)
[2018-10-19] MEDS ORDERED: OMEPRAZOLE40 MG PEG (03:56)
[2018-10-19] MEDS ORDERED: PREDNISONE10 MG PO (03:56)
[2018-10-19] MEDS ORDERED: NEXIUM20 MG PEG (03:56)
[2018-10-19] MEDS ORDERED: FINASTERIDE5 MG PEG (03:56)
[2018-10-19] MEDS ORDERED: LISINOPRIL30 MG PEG (03:56)
[2018-10-19] MEDS ORDERED: AZITHROMYCIN250 MG PEG (03:56)
[2018-10-19] MEDS ORDERED: SPIRONOLACTONE25 MG PEG (03:56)
--- NOTE | 2018-10-19 07:06 | NUR ---
PT ASLEEP RESP EVEN AND UNLABORED AT THIS TIME NO DISTRESS NOTED AT THIS TIME, PT EASILY AROUSED, TO NAME, CALL LIGHT I REACH, WILL CONT TO MONITOR.
--- NOTE | 2018-10-19 11:10 | NUR ---
CALL TO DR. SR, FOR PT MEDICATIONS, AND TUBE FEEDINGS.
[2018-10-19] MEDS ORDERED: OSMOLITE PEG SCH (12:00)
[2018-10-19] MEDS ORDERED: FENTANYL 50 MCG/HR PATCH TD SCH (12:00)
--- NOTE | 2018-10-19 12:23 | NUR ---
Dr. Kamila Zaragoza here to see pt.
[2018-10-19] MEDS ORDERED: ACETAMINOPHEN/CODEINE 300MG - 30MG TAB PO PRN (12:30)
--- NOTE | 2018-10-19 14:30 | NUR ---
pt peg tube feeding started at 40cc/hr to be increased daily, by increment of 10.
[2018-10-19] MEDS: SPIRONOLACTONE 25 MG TAB PEG SCH (17:04)
[2018-10-19] MEDS: CLONIDINE HCL 0.1 MG TAB PEG SCH (17:05)
[2018-10-19] MEDS: FLUDROCORTISONE ACETATE 0.1 MG TAB PEG SCH (17:05)
--- NOTE | 2018-10-19 19:17 | NUR ---
report given to oncoming nurse, pt stable at this time.
[2018-10-19] MEDS ORDERED: METOPROLOL TARTRATE 50 MG TAB GT ONE (20:45)
--- NOTE | 2018-10-19 20:53 | NUR ---
SPOKE TO DR. Bridgett MONTENEGRO AT THIS TIME REGARDING PT C/O PAIN. PT REFUSED PRN TYLENOL #3 STATED "IT DOES NOT HELP". SAID PT ALREADY HAS FENTANYL PATCH AND CAN ONLY HAVE TYLENOL #3 FOR BREAKTHROUGH PAIN. NO NEW ORDER.
[2018-10-19] MEDS: LISINOPRIL 10 MG TAB PEG SCH (21:00)
[2018-10-19] MEDS: PREDNISONE 5 MG/5 ML SOLN PO SCH (21:27)
[2018-10-19] MEDS: AMITRIPTYLINE HCL 25 MG TAB PEG SCH (21:27)
[2018-10-19] MEDS: ROPINIROLE HCL 0.25 MG TAB PEG SCH (21:27)
[2018-10-19] MEDS: AMLODIPINE BESYLATE 10 MG TAB PEG SCH (21:28)
[2018-10-20] VITALS (8 sets, daily range): BP systolic 113–182; BP diastolic 61–81
--- NOTE | 2018-10-20 01:03 | NUR ---
SPOKE TO DR. Rachelle MONTENEGRO AT THIS TIME REGARDING TUBE FEEDING. NEW ORDERS RECEIVED.
[2018-10-20] MEDS: SODIUM CHLORIDE 0.9% 1000ML 1,000 ML IV SCH ×3 (01:30→18:05)
[2018-10-20] MEDS: PIPER-TAZ 3.375 GM 50 ML IV SCH ×4 (06:06→23:45)
[2018-10-20 06:34] LABS: BASOPHILS % 0.2 % (0.0-1.0); EOSINOPHILS # (AUTO) 0.2 (0.0-0.4); EOSINOPHILS % 2.9 % (0.0-6.0); HEMATOCRIT 34.8 % (38.2-49.6); HEMOGLOBIN 11.4 g/dL (14.0-18.0); LYMPHOCYTES # (AUTO) 0.7 (1.0-3.2); LYMPHOCYTES % 11.1 % (18.0-39.1); MEAN CORPUSCULAR HEMOGLOBIN 30.2 pg (28-32); MEAN CORPUSCULAR HGB CONC 32.8 g/dL (31-35); MEAN CORPUSCULAR VOLUME 92.3 fL (81-99); MONOCYTES # (AUTO) 0.4 (0.2-0.8); MONOCYTES % 5.6 % (4.4-11.3); NEUTROPHILS # (AUTO) 4.9 (2.1-6.9); NEUTROPHILS % 79.6 % (38.7-80.0); PLATELET COUNT 192 x10e3/uL (140-360); RED BLOOD COUNT 3.77 x10e6/uL (4.3-5.7); RED CELL DISTRIBUTION WIDTH 14.1 % (11.7-14.4)
[2018-10-20] MEDS ORDERED: ULTRAM50 MG PO (06:43)
[2018-10-20 07:01] LABS: ALANINE AMINOTRANSFERASE 11 IU/L (0-55); ALBUMIN 2.4 g/dL (3.5-5.0); ALBUMIN/GLOBULIN RATIO 0.6 (0.8-2.0); ALKALINE PHOSPHATASE 52 IU/L (40-150); ANION GAP 14.4 mmol/L (8-16); BLOOD UREA NITROGEN 31 mg/dL (7-26); BUN/CREATININE RATIO 30 (6-25); CALCIUM 9.6 mg/dL (8.4-10.2); CARBON DIOXIDE 23 mmol/L (22-29); CHLORIDE 104 mmol/L (98-107); CREATININE, SERUM 1.02 mg/dL (0.72-1.25); EST GLOMERULAR FILTRATION RATE > 60 ML/MIN (60-); GLUCOSE 124 mg/dL (74-118); POTASSIUM 4.4 mmol/L (3.5-5.1); SODIUM 137 mmol/L (136-145)
--- NOTE | 2018-10-20 07:09 | NUR ---
PT ASLEEP RESP EVEN AND UNLABORED AT THIS TIME NO DISTRESS NOTED, PT EASILY AROUSED AT THIS TIME, PEG TUBE FEEDING OFF AT THIS TIME, CALL LIGHT IN REACH, WILL CONT TO MONITOR.
[2018-10-20] MEDS ORDERED: PANTOPRAZOLE SODIUM 40 MG SUSPDR.PKT PEG SCH (09:00)
[2018-10-20] MEDS: CLONIDINE HCL 0.1 MG TAB PEG SCH ×2 (09:16→18:06)
[2018-10-20] MEDS: FLUDROCORTISONE ACETATE 0.1 MG TAB PEG SCH ×2 (09:16→18:06)
[2018-10-20] MEDS: SPIRONOLACTONE 25 MG TAB PEG SCH ×2 (09:16→18:05)
[2018-10-20] MEDS: TAMSULOSIN HCL 0.4 MG CAP PEG SCH (09:16)
[2018-10-20] MEDS: FINASTERIDE 5 MG TAB PEG SCH (09:16)
[2018-10-20] MEDS: LEVOTHYROXINE SODIUM 75 MCG TAB PEG SCH (09:16)
[2018-10-20] MEDS: METOPROLOL TARTRATE 50 MG TAB GT SCH (09:17)
[2018-10-20] MEDS: FUROSEMIDE 20 MG TAB PEG SCH (09:17)
[2018-10-20] MEDS: SERTRALINE HCL 100 MG TAB PEG SCH (09:17)
[2018-10-20] MEDS: PANTOPRAZOLE SODIUM 40 MG SUSPDR.PKT PO SCH (09:17)
[2018-10-20] MEDS: FENTANYL 50 MCG/HR PATCH TD SCH (09:35)
[2018-10-20] MEDS: ONDANSETRON HCL INJ 2MG/ML 2ML 2 MG/ML VIAL IV PRN (14:36)
[2018-10-20] MEDS: HYDROMORPHONE 1MG/1ML INJ IV PRN ×2 (14:36→20:53)
--- NOTE | 2018-10-20 19:17 | NUR ---
REPORT GIVEN TO ONCOMING, PT STABLE.
[2018-10-20] MEDS: LISINOPRIL 10 MG TAB PEG SCH (20:45)
[2018-10-20] MEDS: PREDNISONE 5 MG/5 ML SOLN PO SCH (20:45)
[2018-10-20] MEDS: ROPINIROLE HCL 0.25 MG TAB PEG SCH (20:45)
[2018-10-20] MEDS: AMITRIPTYLINE HCL 25 MG TAB PEG SCH (20:45)
[2018-10-20] MEDS: AMLODIPINE BESYLATE 10 MG TAB PEG SCH (20:45)
[2018-10-21] VITALS (8 sets, daily range): BP systolic 130–191; BP diastolic 65–81
[2018-10-21] MEDS: SODIUM CHLORIDE 0.9% 1000ML 1,000 ML IV SCH ×4 (03:59→21:35)
[2018-10-21] MEDS: PIPER-TAZ 3.375 GM 50 ML IV SCH ×3 (05:11→17:18)
[2018-10-21 06:10] LABS: BASOPHILS % 0.2 % (0.0-1.0); HEMATOCRIT 33.4 % (38.2-49.6); LYMPHOCYTES # (AUTO) 0.6 (1.0-3.2); MEAN CORPUSCULAR HEMOGLOBIN 30.7 pg (28-32); MEAN CORPUSCULAR HGB CONC 32.9 g/dL (31-35); MEAN CORPUSCULAR VOLUME 93.3 fL (81-99); MONOCYTES # (AUTO) 0.2 (0.2-0.8); NEUTROPHILS # (AUTO) 3.9 (2.1-6.9); NEUTROPHILS % 81.4 % (38.7-80.0); PLATELET COUNT 196 x10e3/uL (140-360); RED BLOOD COUNT 3.58 x10e6/uL (4.3-5.7); RED CELL DISTRIBUTION WIDTH 14.1 % (11.7-14.4)
[2018-10-21 06:26] LABS: ANION GAP 13.1 mmol/L (8-16); BLOOD UREA NITROGEN 26 mg/dL (7-26); BUN/CREATININE RATIO 28 (6-25); CALCIUM 9.3 mg/dL (8.4-10.2); CARBON DIOXIDE 25 mmol/L (22-29); CHLORIDE 105 mmol/L (98-107); CREATININE, SERUM 0.92 mg/dL (0.72-1.25); EST GLOMERULAR FILTRATION RATE > 60 ML/MIN (60-); GLUCOSE 117 mg/dL (74-118); POTASSIUM 4.1 mmol/L (3.5-5.1); SODIUM 139 mmol/L (136-145)
[2018-10-21] MEDS: SPIRONOLACTONE 25 MG TAB PEG SCH ×2 (09:37→17:17)
[2018-10-21] MEDS: METOPROLOL TARTRATE 50 MG TAB GT SCH (09:37)
[2018-10-21] MEDS: LEVOTHYROXINE SODIUM 75 MCG TAB PEG SCH (09:37)
[2018-10-21] MEDS: TAMSULOSIN HCL 0.4 MG CAP PEG SCH (09:37)
[2018-10-21] MEDS: SERTRALINE HCL 100 MG TAB PEG SCH (09:37)
[2018-10-21] MEDS: FUROSEMIDE 20 MG TAB PEG SCH (09:37)
[2018-10-21] MEDS: PANTOPRAZOLE SODIUM 40 MG SUSPDR.PKT PO SCH (09:37)
[2018-10-21] MEDS: CLONIDINE HCL 0.1 MG TAB PEG SCH ×2 (09:37→17:18)
[2018-10-21] MEDS: FINASTERIDE 5 MG TAB PEG SCH (09:37)
[2018-10-21] MEDS: FLUDROCORTISONE ACETATE 0.1 MG TAB PEG SCH ×2 (09:37→17:18)
--- NOTE | 2018-10-21 09:37 | NUR ---
new feeding hung resumed feedings at this time
--- NOTE | 2018-10-21 09:48 | NUR ---
dressing change performed on peg tube prior dressing saturated with purulent yellow drainage site clean and dry now
--- NOTE | 2018-10-21 12:51 | NUR ---
Woundcare consult for 68yo male hospitalized post fall presents with multiple abrasions to arms and one To head. head abrasion 5.5cmx1.5cmx.1cm pink wound base with scant serosanguineous drainage matty Skin pink and blanchable Pt reports areas to arms from previously being scratched . Closed red excoriated areas noted to bilateral arms Lab: WBC-4.67,HGB-11,Glucose-117 Blood cult pending X-Ray negative for fractures Recomendations : Nursing to maintain strict PUP status with PT due to fall history Nursing to maintain alternating pressure mattress and pillow suspension of heels Nursing to apply DailyVasolex and leave open to air to Pt Head abrasion and newly healing red closed areas to bilateral arms
--- NOTE | 2018-10-21 13:16 | NUR ---
WOUNDCARE CONSULT 68YO MALE HOSPITALIZED POST FALL HEAD ABRASION NOTED 5.5CMX1.5CMX.1CM PINK WOUNDBASE WITH SCANT SEROSANGUINEOUS DRAINAGE NOTED SURROUNDING SKIN PINK INTACT AND BLANCHABLE AREAS OF CLOSED NEWLY HEALED SCRATCHES TO BILATERAL ARM ALSO NOTED REPORTED BY FAMILY AND PATIENT TO HAVE BEEN FOR PREVIOUS WEEKS LABS: WBC-4.67,HGB-11,GLUCOSE-117 BLOOD CULTURE SHOWS NO GROWTH X-RAY NEGATIVE FOR FRACTURES RECOMMENDATIONS :Nursing to maintain strict PUP status with PT due to fall history Nursing to maintain alternating pressure mattress and pillow suspension of heels Nursing to apply Daily Vasolex and leave open to air to Pt Head abrasion and newly healing red closed areas to bilateral arms Addendum: 10/21/18 at 1324 by Castro Bocanegra RN Amended: Links added.
[2018-10-21] MEDS: HYDROMORPHONE 1MG/1ML INJ IV PRN ×2 (13:48→21:35)
--- NOTE | 2018-10-21 16:30 | NUR ---
Nutrition Intervention Note RD Recommendation(s) for Physician: - Change TF order to cyclic TF of Glucerna 1.5 at 105 ml/hr x 12 hrs (8AM-8PM), to provide 1890 kcal and 104 gm protein per day. - Water flushes and fluid management per MD. Plan of Care: RD following, monitoring for tolerance and adequacy Nutrition reason for involvement: Nutrition Risk Trigger- EN on admit RD Assessment 10/21: 68 YOM admitted for aspiration PNA, s/p fall with abrasions to head and arm, and hypotension. Pt seen today per EN on admit. Pt known from prior admits. 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 Pt states he does not want TF at night so he can sleep. Pt denies abdominal pain or any GI distress. Noted 17# wt gain since August- wt gain appropriate. Pt discussed during am rounds, potential discharge to [facility] per RN. TF rec's provided, to meet 100% of estimated needs. Will monitor and continue to follow. Principal Problems/Diagnoses: aspiration PNA, s/p fall with abrasions to head and arm, and hypotensio PMH: tongue cancer, PEG, COPD, aspiration PNA, HTN GI:LBM 10/21; + PEG Skin: abrasions to face and arm Labs: 10/21: Na 139, K 4.1, BUN 26, Cr 0.92, Gluc 117 Meds: fentanyl, prednisone, protonix, abx, synthroid, florinef, lasix, aldactone, zofran Ht: 70 in Wt: 136 lb BMI:19.6 IBW: 166 lb Malnutrition Evaluation (10/21) The patient does not meet criteria for a specified degree of malnutrition at this time. Will re-evaluate at follow-up as appropriate. 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 Nutrition Prescription (Diet Order): Osmolite 1.2 at 70 ml/hr x 12 hours Estimated Nutritional Needs: 1855-2163calories/day (30-35 kcal/kg CBW) 62-111 g protein/day (1-1.8 g pro/kg CBW) Diet Adequacy: Not meeting calorie needs, Not meeting protein needs Diet Education Needs Assessment: Diet education not indicated, patient on TF. Nutrition Care Level: Mod Nutrition Diagnosis: Inadequate energy and protein intake related current EN order as evidenced by not meeting needs. Goal: Patient will meet 75-100% of estimated needs by follow up Progress: N/A Interventions: Composition, Rate, Route, IVF, Prescription medications, Survival information, Recommended Modifications, Collaboration with other providers Monitoring/Evaluation: Total energy intake, Total protein intake, Formula/Solution Signed: Sima Moreno RD, LD, [facility]
[2018-10-21] MEDS: LISINOPRIL 10 MG TAB PEG SCH (20:15)
[2018-10-21] MEDS: AMITRIPTYLINE HCL 25 MG TAB PEG SCH (20:15)
[2018-10-21] MEDS: AMLODIPINE BESYLATE 10 MG TAB PEG SCH (20:15)
[2018-10-21] MEDS: PREDNISONE 5 MG/5 ML SOLN PO SCH (20:16)
[2018-10-21] MEDS: ROPINIROLE HCL 0.25 MG TAB PEG SCH (20:16)
[2018-10-21] MEDS: BALSAM PERU/CASTOR OIL 60 GM OINT...G. TP SCH (21:22)
[2018-10-21] MEDS: ONDANSETRON HCL INJ 2MG/ML 2ML 2 MG/ML VIAL IV PRN (21:35)
--- NOTE | 2018-10-21 22:00 | NUR ---
PER PATIENT REQUEST STOPPED TUBE FEEDING.PAIN MEDICINE GIVEN.VOIDED.BED LOCKED AND IN LOWEST POSITION.BED ALARM ON.PHONE AND CALL LIGHT WITHIN REACH.INSTRUCTED TO CALL FOR ASSISTANCE NEEDED.
[2018-10-22] VITALS (9 sets, daily range): BP systolic 128–191; BP diastolic 61–89
[2018-10-22] MEDS: PIPER-TAZ 3.375 GM 50 ML IV SCH ×4 (00:07→18:22)
--- NOTE | 2018-10-22 07:01 | NUR ---
BEDSIDE SHIFT REPORT GIVEN TO THE ONCOMING RN.WALKING ROUNDS DONE.
[2018-10-22] MEDS: METOPROLOL TARTRATE 50 MG TAB GT SCH (08:30)
[2018-10-22] MEDS: SPIRONOLACTONE 25 MG TAB PEG SCH ×2 (08:30→16:32)
[2018-10-22] MEDS: SERTRALINE HCL 100 MG TAB PEG SCH (08:31)
[2018-10-22] MEDS: TAMSULOSIN HCL 0.4 MG CAP PEG SCH (08:31)
[2018-10-22] MEDS: BALSAM PERU/CASTOR OIL 60 GM OINT...G. TP SCH (08:31)
[2018-10-22] MEDS: FENTANYL 50 MCG/HR PATCH TD SCH (08:31)
[2018-10-22] MEDS: CLONIDINE HCL 0.1 MG TAB PEG SCH ×2 (08:31→16:33)
[2018-10-22] MEDS: FLUDROCORTISONE ACETATE 0.1 MG TAB PEG SCH ×2 (08:31→16:33)
[2018-10-22] MEDS: PANTOPRAZOLE SODIUM 40 MG SUSPDR.PKT PO SCH (08:31)
[2018-10-22] MEDS: LEVOTHYROXINE SODIUM 75 MCG TAB PEG SCH (08:31)
[2018-10-22] MEDS: FUROSEMIDE 20 MG TAB PEG SCH (08:31)
[2018-10-22] MEDS: FINASTERIDE 5 MG TAB PEG SCH (08:31)
--- NOTE | 2018-10-22 08:49 | NUR ---
spoke to md ledesma regarding peg tube insertion site possibly being infected new orders for bactroban given
[2018-10-22] MEDS: SODIUM CHLORIDE 0.9% 1000ML 1,000 ML IV SCH ×2 (10:16→16:32)
--- NOTE | 2018-10-22 10:45 | NUR ---
SPOKE WITH MD SR REGARDING NO IV ACCESS AFTER 5 ATTEMPTS ORDERS FOR PICC LINE GIVEN STATES PT WILL NEED ZOZYN 2 MORE WEEKS FROM TODAY
[2018-10-22] MEDS: MUPIROCIN 2% OINT 22 GM TUBE TOP SCH ×2 (11:33→16:33)
[2018-10-22 11:37] LABS: INR 1.03
[2018-10-22 11:38] LABS: PARTIAL THROMBOPLASTIN TIME 27.5 seconds (23.8-35.5)
--- NOTE | 2018-10-22 12:10 | Progress Note ---
DATE: Internal Medicine Progress Note SUBJECTIVE: The patient is still thinking about going to [place]. I told the patient he has recurrent aspiration pneumonia. He needs to go to [facility] for two weeks of IV antibiotic. He had a cellulitis on the feeding tube now. The patient is still thinking about that, he is going to talk with the and make a decision. PHYSICAL EXAMINATION: VITAL SIGNS: Blood pressure 145/76, temperature 98 degrees, heart rate 78 per minute, respiratory rate 18 per minute, O2 saturation 93%. HEART: Showed regular rhythm. Normal S1, S2 sound. LUNGS: Clear bilaterally. ABDOMEN: Soft. He has redness around the PEG tube site. LABORATORY DATA: On the BMP; sodium 139, potassium 4.1, chloride 105 CO2 of 25, BUN 26, creatinine 0.82, glucose 117. On the CBC; white blood count 4.76, hemoglobin 11.0, hematocrit 33.4, platelet count 186,000. AST 12, ALT 11, total bilirubin 0.6, alkaline phosphatase of 52. FINAL IMPRESSION: 1. Aspiration pneumonia. 2. Cellulitis around the PEG tube site. 3. Chronic obstructive pulmonary disease exacerbation. 4. Laryngeal cancer, status post radiation therapy in the past. 5. Dysphagia. 6. Anemia of chronic disease. PLAN OF TREATMENT: Continue Zosyn 3.375 g IV q.6 hours. Continue with normal saline 125 mL an hour, Zofran 4 mg IV q.4 hours as needed, finasteride 5 mg daily, Aldactone 12.5 mg twice a day, lisinopril 30 mg daily, levothyroxine 150 mcg daily, amlodipine 10 mg daily, fludrocortisone 0.1 mg twice a day. Continue prednisone 10 mg daily, amitriptyline 100 mg daily, metoprolol 50 mg daily, clonidine 0.1 mg twice a day, furosemide 20 mg daily, Protonix 40 mg daily, Requip 0.5 mg at bedtime, Dilaudid 1 mg IV q.4 hours as needed, fentanyl patch q.48h hours, Flomax 0.4 mg daily, Tylenol with codeine 1 tablet q.6 hours as needed, Zoloft 50 mg daily, Balsam [place]/castor oil to affected area daily. We are going to use Bactroban ointment topically to the area twice a day on the PEG site. The patient is supposed to go to [place]. He is still thinking about that. We are going to discuss the case also with the . The patient is going to talk to her and hopefully he will be in agreement to go there. MD STEPHANIE Barrientos/ELIAN /[id number]
--- NOTE | 2018-10-22 14:06 | Discharge Summary ---
HOSPITAL COURSE: The patient is a 68-year-old male with past medical history positive for laryngeal cancer, status post tracheostomy, history of COPD, and history of hypertension. Apparently, he fell at home. CT of the head and CT of the cervical spine showed no evidence of any fractures. The patient was also diagnosed with aspiration pneumonia. He is getting IV Zosyn. He is going to be transferred to [facility] if accepted. PHYSICAL EXAMINATION: HEART: Show regular rhythm. Normal S1 and S2 sounds. LUNGS: Clear bilaterally. ABDOMEN: Soft. He has a PEG tube in place. LABORATORY DATA: On the BMP; sodium of 139, potassium 4.1, chloride 105, CO2 25, BUN 26, and creatinine 0.92. On the CBC; white blood count 4.76, hemoglobin 11.0, hematocrit 33.4, and platelet count of 186,000. AST 12, ALT 11, total bilirubin 0.6, and alkaline phosphatase 52. IMPRESSION: 1. Aspiration pneumonia. 2. Dysphagia. 3. Chronic obstructive pulmonary disease. 4. Hypertension. 5. Acute renal failure. 6. Status post fall. PLAN OF TREATMENT: Continue Zosyn 3.375 g IV q.6 hours, sodium chloride IV 125 mL an hour, Zofran 4 mg IV q.4 hours as needed, Proscar 5 mg daily, Aldactone 12.5 mg twice a day, lisinopril 30 mg daily, levothyroxine 150 mcg daily, amlodipine 10 mg daily, and fludrocortisone 0.1 mg twice a day for orthostatic hypotension. He is on prednisone 10 mg daily, amitriptyline 100 mg at bedtime, metoprolol 50 mg daily, clonidine 0.1 mg twice a day for hypertension, Lasix 20 mg daily, Protonix 40 mg daily, Requip 0.5 mg at bedtime, Dilaudid 1 mg IV q.4 hours as needed for severe pain, fentanyl patch every 48 hours, Flomax 0.4 mg daily, Tylenol with codeine 1 tablet q.6 hours as needed, sertraline 100 mg daily, Balsam [place]/castor oil one application daily. Tentative discharge for today or tomorrow to go to [facility] mainly for continuation of IV antibiotic, physical and occupational therapy, and optimization of nutrition status. MD STEPHANIE Barrientos/ELIAN /[id number]
--- NOTE | 2018-10-22 15:35 | Diagnostic Imaging Report ---
Chest, 1 view, 10/22/2018. History: Recent. Comparison: 10/18/2018. Findings: The cardiomediastinal silhouette and pulmonary vasculature are within normal limits for a portable exam. Right upper extremity PICC terminates in the region of the mid SVC. There is increase left lower lobe consolidation. There are no acute osseous or soft tissue abnormalities. Impression: Worsening left lower lobe pneumonia. PICC is in adequate position. Signed by: Kal Mccoy on 10/22/2018 3:32 PM
--- NOTE | 2018-10-22 15:44 | NUR ---
SPOKE WITH PICC LINE TEAM. STATES PICC LINE IS IN RIGHT POSITION AND OK TO USE
--- NOTE | 2018-10-22 15:52 | NUR ---
ZULLY SR FOR NEW XRAY RESULTS OF WORSENING PNA, AND HIGH BP 191/89
--- NOTE | 2018-10-22 16:29 | NUR ---
BELA SPOKE WITH MANOJ Hernandez WHO STATES PT'S JUST CALLED AND SAYS PT WILL AGREE TO SIGN MOT AND CHOICE FOR [facility] CM WENT INTO ROOM AND PT SIGNED CHOICE LETTER FOR [facility] SIGNED MOT CLINT WITH [facility] NOTIFIED OF CONSULT ASKED MANOJ TO PRINT OOH DNR AND PUT ON FRONT OF CHART FOR DR SR TO SIGN IN AM DR SR NOTIFIED OF ABOVE AND WILL SIGN OOH DNR IN AM PLAN TRANSFER TO [facility] IN AM
[2018-10-22] MEDS: HYDRALAZINE HCL 20 MG/ML VIAL IV PRN (16:33)
--- NOTE | 2018-10-22 16:58 | NUR ---
MOT INITIATED AND PLACED ON PACKET AT DESK PLAN TRANSFER TO [facility] TOMORROW
[2018-10-22] MEDS ORDERED: VANCOMYCIN 1GM/NS 250 ML 250 ML IV SCH (17:00)
--- NOTE | 2018-10-22 17:37 | NUR ---
BP TAKEN AFTER HYDRALAZINE DOSAGE ORDER GIVEN BY MD SR BP NOW 128-65 WITH HR OF 90
--- NOTE | 2018-10-22 19:10 | NUR ---
RECEIVED REPORT FROM MORNING RN.PATIENT IS LYEING IN THE BED.STABLE CONDITION.
[2018-10-22] MEDS ORDERED: ACETAMINOPHEN 325 MG TAB PO PRN (21:15)
[2018-10-22] MEDS: ROPINIROLE HCL 0.25 MG TAB PEG SCH (21:48)
[2018-10-22] MEDS: LISINOPRIL 10 MG TAB PEG SCH (21:48)
[2018-10-22] MEDS: PREDNISONE 5 MG/5 ML SOLN PO SCH (21:48)
[2018-10-22] MEDS: AMITRIPTYLINE HCL 25 MG TAB PEG SCH (21:48)
[2018-10-22] MEDS: AMLODIPINE BESYLATE 10 MG TAB PEG SCH (21:48)
[2018-10-22] MEDS: HYDROMORPHONE 1MG/1ML INJ IV PRN (22:02)
--- NOTE | 2018-10-22 22:10 | NUR ---
HAS FEVER NOTIFIED TO .RECEIVED NEW ORDERS.TUBE FEED STOPPED PER PATIENT REQUEST.PAIN MEDICINE GIVEN.BED LOCKED AND IN LOWEST POSITION.PHONE AND CALL LIGHT WITHIN REACH.INSTRUCTED TO CALL FOR ASSISTANCE NEEDED.
[2018-10-23] VITALS: BP 123/66
[2018-10-23] MEDS: PIPER-TAZ 3.375 GM 50 ML IV SCH ×3 (00:10→12:08)
[2018-10-23] MEDS: SODIUM CHLORIDE 0.9% 1000ML 1,000 ML IV SCH ×2 (01:13→10:10)
[2018-10-23 04:00] VITALS: BP 146/69
--- NOTE | 2018-10-23 07:10 | NUR ---
BED SIDE SHIFT REPORT GIVEN TO THE ONCOMING RN.STABLE CONDITION.
[2018-10-23 07:56] VITALS: BP 127/71
[2018-10-23 09:00] VITALS: BP 127/77
[2018-10-23] MEDS: MUPIROCIN 2% OINT 22 GM TUBE TOP SCH (09:00)
[2018-10-23] MEDS: TAMSULOSIN HCL 0.4 MG CAP PEG SCH (09:00)
[2018-10-23] MEDS: SERTRALINE HCL 100 MG TAB PEG SCH (09:00)
[2018-10-23] MEDS: BALSAM PERU/CASTOR OIL 60 GM OINT...G. TP SCH (09:00)
[2018-10-23] MEDS: LEVOTHYROXINE SODIUM 75 MCG TAB PEG SCH (09:00)
[2018-10-23] MEDS: FUROSEMIDE 20 MG TAB PEG SCH (09:00)
[2018-10-23] MEDS: FLUDROCORTISONE ACETATE 0.1 MG TAB PEG SCH (09:00)
[2018-10-23] MEDS: PANTOPRAZOLE SODIUM 40 MG SUSPDR.PKT PO SCH (09:00)
[2018-10-23] MEDS: FINASTERIDE 5 MG TAB PEG SCH (09:00)
[2018-10-23] MEDS: METOPROLOL TARTRATE 50 MG TAB GT SCH (09:00)
[2018-10-23] MEDS: CLONIDINE HCL 0.1 MG TAB PEG SCH (09:00)
[2018-10-23] MEDS: SPIRONOLACTONE 25 MG TAB PEG SCH (09:00)
[2018-10-23 11:34] VITALS: BP 166/75
--- NOTE | 2018-10-23 11:51 | NUR ---
DR SR HERE AND PT DECIDED HE WANTS TO BE A FULL CODE BED SECURED AT [facility] MOT IN PURIFICATION DIRECTOR'S OFFICE AND MOT INFORMATION GIVEN TO OSCAR GALVEZ
--- NOTE | 2018-10-23 11:55 | NUR ---
[facility] DISCHARGE INFORMATION PATIENT HAS BEEN ACCEPTED TO: -[facility] -[address] [place] [address] ACCEPTING CUSTOMER SERVICE SALES CONSULTANT: ANDREEA DUARTE ROOM: 303 NURSE TO CALL REPORT TO: [phone] THE FOLLOWING DOCUMENTS MUST ACCOMPANY PATIENT FOR TRANSER: COPIED CHART- YES COPIED BY MEAL COOKER MOT INFO RECEIVED FROM: CLINT STROUD PHYSICIAN'S ORDER/RECONCILED MED LIST: YES [id number] DNR: PT WAS DNR AT [facility] BUT CHANGED CODE STATUS TO FULL CODE THIS AM AFTER D/W DR SR
--- NOTE | 2018-10-23 12:00 | NUR ---
PEG tube dressing changed
--- NOTE | 2018-10-23 12:40 | NUR ---
Report called to [facility] and given to Can Urias RN of patient's status. BP 166/75. PRN hydralazine given
[2018-10-23] MEDS: HYDRALAZINE HCL 20 MG/ML VIAL IV PRN (12:42)
--- NOTE | 2018-10-23 13:50 | NUR ---
Taken via stretcher by EMS. AAOX3 to time, person, place. Respirations even and unlabored. O2 3L NC. Right PICC line dressing clean, dry, and intact. Transfer package and personal belongings given to EMS.
--- NOTE | 2018-10-24 08:01 | Discharge Summary ---
HOSPITAL COURSE: A 68-year-old male with past medical history positive for cancer of the tongue, COPD, hypertension, dysphagia, PEG tube feeding, hypothyroidism, orthostatic hypotension. The patient came with cough, phlegm, and fever. He was found to have aspiration pneumonia and also cellulitis around the PEG tube site. He was started initially on Zosyn and then vancomycin was added for due to the fact the patient was still running fever and he had cellulitis around the PEG tube site. He is going to be transferred to [facility] today for continuation of IV antibiotic. PHYSICAL EXAMINATION: VITAL SIGNS: Blood pressure 127/71, temperature 36.1, heart rate 71 per minute, respiratory rate 16 per minute, oxygen saturation 98%. HEART: Showed regular rhythm. Normal S1 and S2 sound. LUNGS: Clear bilaterally. ABDOMEN: Soft. Got a PEG tube in place. EXTREMITIES: Show no evidence of edema. LABORATORY DATA: On the BMP; sodium 139, potassium 4.1, chloride 105, CO2 of 25, BUN 26, creatinine 0.92, glucose 117. On CBC; white count 4.76, hemoglobin 11.0, hematocrit 33.4, and platelet count of 186,000. PT 14.0, INR 1.03, PTT 27.5. AST 12, ALT 11, total bilirubin 0.6, alkaline phosphatase 52. FINAL IMPRESSION: 1. Aspiration pneumonia. 2. PEG tube cellulitis. 3. History of cancer of the tongue, status post radiation in the past, EG tube dependent. 4. Hypertension. 5. Hypothyroidism. 6. Benign prostatic hypertrophy. 7. Orthostatic hypotension. 8. Depression. PLAN OF TREATMENT: Continue Zosyn 3.375 g IV q.6 hours, vancomycin 1 g IV once a day. Continue with PEG tube feeding. Continue fentanyl 1 patch q.48 hours, Flomax 0.4 mg daily, Tylenol with codeine 1 tablet q.4 hours 6 hours as needed, sertraline 100 mg daily, Balsam [place]/castor oil one application daily. Continue Zofran 4 mg IV q.4 hours as needed, Proscar 5 mg daily, Aldactone 12.5 mg twice a day, lisinopril 30 mg daily, levothyroxine 150 mcg daily, mupirocin 1 application to the PEG tube site twice a day, amlodipine 10 mg daily, fludrocortisone acetate 0.1 mg twice a day for orthostatic hypotension. Continue prednisone 10 mg daily. Continue amitriptyline 100 mg at bedtime, metoprolol 50 mg daily, hydralazine 20 mg q.4 hours as needed for hypertension. Continue clonidine 0.1 mg twice a day, furosemide 20 mg daily, Protonix 40 mg daily, and Requip 0.5 mg at bedtime for restless legs syndrome. Continue Dilaudid 1 mg IV q.4 hours as needed. Continue Tylenol 650 mg q.4 hours as needed. The patient is going to be transferred to [facility]. MD STEPHANIE Barrientos/ELIAN /[id number]
== END 2018-10-23 13:50 | DRG 178 ==
LOC: ER 21:24 → ERHOLD 10-19 00:41 → MED/SURG 10-19 01:57
PROVIDERS: ADMIT Internal Medicine; ATTEND Internal Medicine
PROC: 02HV33Z Insertion of Infusion Device into Superior Vena Cava, Percutaneous Approach (ICD-10-PCS; principal; 2018-10-22)
DX: J69.0 Pneumonitis due to inhalation of food and vomit (principal); L03.818 Cellulitis of other sites; N17.9 Acute kidney failure, unspecified; E86.0 Dehydration; Z66 Do not resuscitate; J44.9 Chronic obstructive pulmonary disease, unspecified; I10 Essential (primary) hypertension; E03.9 Hypothyroidism, unspecified; K94.29 Other complications of gastrostomy; N40.0 Benign prostatic hyperplasia without lower urinary tract symptoms; F32.9 Major depressive disorder, single episode, unspecified; Z85.810 Personal history of malignant neoplasm of tongue; Z92.3 Personal history of irradiation; I95.1 Orthostatic hypotension; G25.81 Restless legs syndrome; R13.10 Dysphagia, unspecified; D63.8 Anemia in other chronic diseases classified elsewhere; W19.XXXA Unspecified fall, initial encounter; R63.4 Abnormal weight loss; Z68.20 Body mass index [BMI] 20.0-20.9, adult; R63.6 Underweight
CPT/HCPCS: 36415; 36569; 70450; 71045; 72125; 80048; 80053; 81001; 82550; 82553; 84484; 85025; 85610; 85730; 87040; 93005; 97139; 99284; J0360; J1170; J2405; J2543; J2930; J3370; J7030